=== PATIENT | female | born 1930 | race Caucasian/White ===

== ENCOUNTER 2017-05-11 15:46 | Outpatient (CLI) | payer MEDICARE, MEDICAID ==
[~2017-05-11] VITALS: Ht 152.4 cm; Wt 55.6 kg
--- NOTE | ~2017-05-11 | HEMODYNAMI ---
PATIENT:SOWMYA PARSON APRIL MEDICAL RECORD: [id number] : 32 [facility]# [id number] ADMISSION DATE: 05/11/17 Generatedon:05/12/20177:56 Patient name: SOWMYA PARSON Patient #: [id number] SSN : [id number] : 1930 Date of study: 05/12/2017 Page: Of Hemodynamic Procedure Report Patient Data Patient Demographics Procedure consent was obtained First Name: SOWMYA Gender: Female Last Name: BLANK : 1930 Middle Initial: APRIL Age: 87 year(s) Patient #: [id number] Race: Unknown SSN: [id number] Additional ID: [id number] Contact details [address]: [address] [place] [address] State: [place] City: [place] Zip code: [address] Past Medical History Allergies Allergen Reaction Date Comments Reported Other allergy 05/12/2017 Amlodipine, lisinopril, losartan, PCN Admission Admission Data Admission Date: 05/11/2017 Admission Time: 16:15 Arrival Date: 05/12/2017 Arrival Time: 0:00 Admit Source: Other Insurance Payor: Medicaid, Room #: D.2125 Medicare Height (in.): 60 BSA: 1.52 (m2) Height (cm.): 152.4 BMI: 23.93 (kg/m2) Weight (lbs.): 122.56 Weight (kg.): 55.59 Lab Results Lab Result Date: 05/12/2017 Lab Result Time: 0:00 Biochemistry Name Units Result Min Max BUN mg/dl 15 --(--*-)-- 7 18 Creatinine mg/dl 1.1 --(--*-)-- 0.6 1.3 CBC Name Units Result Min Max Hemoglobin g/dl 13 -*(----)-- 13.5 17.5 Procedure Procedure Types Cath Procedure Diagnostic Procedure LHC LHC w/Coronaries PCI Procedure Coronary Stent Initial Miscellaneous Procedures Moderate Sedation up to 15 minutes Procedure Description Procedure Date Procedure Date: 05/12/2017 Procedure Start Time: 7:36 Procedure End Time: 7:56 Procedure Staff Name Function Estuardo Plaza MD Performing Physician Sarah Gonzalez RT Scrub Amita Harris RN Nurse Mirella Henry RT Monitor Procedure Data Cath Procedure Fluoroscopy Diagnostic fluoroscopy Total fluoroscopy Time: 4.1 time: 4.1 min min Diagnostic fluoroscopy Total fluoroscopy dose: 453 dose: 453 mGy mGy Contrast Material Contrast Material Type Amount (ml) Isovue 300 83 Entry Location Entry Primary Successful Side Size Upsize Upsize Entry Closure Succes sful Closure Location (Fr) 1 (Fr) 2 (Fr) Remarks Device Remarks Femoral Right 5 Fr 6 Fr Exoseal artery Short Estimated blood loss: 10 ml Diagnostic catheters Device Type Used For End Catheter Placement Cordis 5Fr 3DRC Catheter Procedure (MP) Cordis 5Fr JL 4.0 Procedure Catheter (MP) Cordis 5Fr Pigtail Procedure Catheter (MP) Procedure Complications No complications Procedure Medications Medication Administration Route Dosage Oxygen NC 2 l/min Lidocaine 2% added to field 20 Heparin Flush Bag added to field 2 bags (1000units/500ml NS) 0.9% NaCl I.V. 100 ml/hr Versed I.V. 1 mg Fentanyl I.V. 50 mcg Heparin Bolus I.V. 4000 units Versed I.V. 0.5 mg Fentanyl I.V. 25 mcg Plavix P.O. 75 mg Hemodynamics Rest BSA: 1.52 (m2) HGB: 13 (g/dl) O2 Consumption: Estimated: 133.6 (ml/min) O2 Consu mption indexed: Estimated:87.89 (ml/min/m) Heart Rate: 68 (bpm) Snapshots Pre Cath Intra NCS Post Cath Vital Signs Time Heart Resp SPO2 NIBP (mmHg) Rhythm Pain Sedation Rate (ipm) (%) Status Level (bpm) 7:18:56 66 15 97 175/79(115) NSR 0 (11) 10(A) , No pain 7:23:24 65 15 96 183/73(161) NSR 0 (11) 10(A) , No pain 7:27:52 67 18 98 174/75(131) NSR 0 (11) 10(A) , No pain 7:32:21 65 16 95 159/66(118) NSR 0 (11) 10(A) , No pain 7:36:47 65 16 94 150/61(116) NSR 0 (11) 10(A) , No pain 7:41:07 70 14 93 133/54(108) NSR 0 (11) 9(A) , No pain 7:45:25 70 14 93 136/54(87) NSR 0 (11) 9(A) , No pain 7:49:47 70 15 94 122/46(79) NSR 0 (11) 9(A) , No pain 7:53:59 70 15 94 135/56(75) NSR 0 (11) 10(A) , No pain Medications Time Medication Route Dose Verified Delivered Reason Notes Effectiveness by by 7:28:29 Oxygen NC 2 Estuardo Buffie used for l/min Bola Harris RN procedure 7:28:36 Lidocaine 2% added 20ml Estuardo Estuardo for local to vial Bola Plaza MD anesthetic field 7:28:43 Heparin Flush added 2 Estuardo Estuardo used for Bag to bags Bola Plaza MD procedure (1000units/500ml field NS) 7:28:52 0.9% NaCl I.V. 100 Estuardo Levi Per physician ml/hr Bola Harris RN 7:36:50 Versed I.V. 1 mg Estuardo Levi for sedation Bola Harris RN 7:36:55 Fentanyl I.V. 50 Estuardo Brantleyie for sedation mcg Bola Harris RN 7:44:51 Heparin Bolus I.V. 4000 Estuardo Levi for verifie d units Bola Harris RN anticoagulation with dr plaza 7:47:27 Versed I.V. 0.5 Estuardo Brantleyie for sedation mg Bola Harris RN 7:47:31 Fentanyl I.V. 25 Estuardo Levi for sedation mcg Bola Harris RN 7:55:29 Plavix P.O. 75 mg Estuardo Levi for Bola Harris RN antiplatelet therapy Procedure Log Time Note 6:54:54 Patient Height : 152.4 cm 6:55:01 Patient Weight : 55.59 kg 6:55:10 Arrival Date: 05/12/2017 12:00:00 AM 6:55:13 Admit Source: Other 6:55:24 Insurance Payor : Medicare, Medicaid 7:16:13 Lab Result : Hemoglobin 13 g/dl 7:16:13 Lab Result : Creatinine 1.1 mg/dl 7:16:13 Lab Result : BUN 15 mg/dl 7:17:11 ACC Patient presents with Stable Angina CCS Anginal Class 2--Slight limitation of ordinary activity. 7:17:14 Diagnostic Cath status Elective 7:17:16 Amita Harris RN sent for patient. Start room use. 7:17:19 Time tracking: Regular hours 7:17:25 Plan of Care:Hemodynamics will remain stable., Cardiac rhythm will remain stable., Comfort level will be maintained., Respiratory function will remain adequate., Patient/ family verbilizes understanding of procedure., Procedure tolerated without complication., Recovers from procedure without complications.. 7:17:31 Patient received from Med II to CCL 2 Alert and oriented. Tansferred to table in Supine position. 7:17:34 Warm blankets applied, and apolol hugger turned on for patient comfort. 7:17:35 Correct patient and procedure confirmed by team. 7:17:37 Signed procedure consent form obtained from patient. 7:17:38 ECG and BP/O2 sat monitors applied to patient. 7:17:40 Vital chart was started 7:17:44 Baseline sample Acquired. 7:17:49 Rhythm: sinus rhythm 7:17:51 Full Disclosure recording started 7:18:36 H&P Date Dictated: 05/11/2017 Within 30 days and on chart., H&P Addendum completed by physician on day of procedure. (MUST COMPLETE FOR ALL OUTPATIENTS). 7:18:38 Pre-procedure instructions explained to patient. 7:18:42 Family in patients room. 7:18:45 Patient NPO since Midnight. 7:19:29 Is the patient allergic to Iodine/contrast media? No. 7:19:32 Is patient on blood thinner?Yes 7:19:35 ACC The patient was administered the following blood thiners within the last 24 hours: ACCPlavix 7:19:39 Patient diabetic? No. 7:19:46 Snore? Yes 7:19:47 Sleep apnea? No 7:20:01 Airway obstruction? Yes chronic bronchitis 7:20:09 Dentures? Yes tight 7:20:15 Patient pain scale 0/10 ?. 7:20:21 IV patent on arrival in left forearm with 0.9% NaCl at [facility]. 7:20:35 Lab results completed and on chart. 7:21:21 Patient allergic to Other allergyAmlodipine, lisinopril, losartan, PCN 7:21:27 Right groin area was prepped with chlora-prep and draped in sterile fashion 7:: Alarms reviewed by R. N. 7::29 Sharps counted by scrub and verified by R.N. 7:21:30 Physician paged 7:28:12 Zero performed for pressure channel P1 7:28:19 Zero performed for pressure channel P1 7:28:26 Zero performed for pressure channel P1 7:28:29 Oxygen 2 l/min NC was administered by Amita Harris RN; used for procedure; 7:28:36 Lidocaine 2% 20ml vial added to field was administered by Estuardo Plaza MD; for local anesthetic; 7:28:43 Heparin Flush Bag (1000units/500ml NS) 2 bags added to field was administered by Estuardo Plaza MD; used for procedure; 7:28:52 0.9% NaCl 100 ml/hr I.V. was administered by Amita Harris RN; Per physician; 7:35:15 Physician arrived 7:35:16 --------ALL STOP TIME OUT------ 7:35:16 Final Timeout: patient, procedure, and site verified with staff and physician. All members of the team are in agreement. 7:35:20 Right groin site verified by team. 7:35:24 Physical assessment completed. ASA score P 2 - A patient with mild systemic disease as per Estuardo Plaza MD. 7:35:28 Sedation plan: IV Moderate Sedation Versed, Fentanyl 7:36:28 Use device set Femoral Dx 7:36:33 Procedure started. 7:36:43 Local anesthetic to right femoral artery with Lidocaine 2% by Estuardo Plaza MD.INITIAL ACCESS ONLY 7:36:50 Versed 1 mg I.V. was administered by Amita Harris RN; for sedation; 7:36:53 A 5 Fr sheath was inserted into the Right Femoral artery 7:36:55 Fentanyl 50 mcg I.V. was administered by Amita Harris RN; for sedation; 7:36:55 Acist Syringe opened to sterile field. 7:36:56 Bag Decanter opened to sterile field. 7:36:57 Medline Cath Pack opened to sterile field. 7:36:59 Terumo 5Fr [place] Sheath opened to sterile field. 7:36:59 St Aj 260cm J .035 wire opened to sterile field. 7:37:01 Acist Hand Control opened to sterile field. 7:37:02 Acist Manifold opened to sterile field. 7:37:02 Diagnostic Infinity 5Fr Multipack catheter opened to sterile field. 7:37:03 Tegaderm 4 x 4 opened to sterile field. 7:39:51 A Cordis 5Fr 3DRC Catheter (MP) was advanced over the wire and used for Procedure. 7:39:54 RCA angiography performed. 7:40:55 Catheter removed. 7:41:38 A Cordis 5Fr JL 4.0 Catheter (MP) was advanced over the wire and used for Procedure. 7:41:41 LCA angiography performed. 7:42:20 Catheter removed. 7:42:29 A Cordis 5Fr Pigtail Catheter (MP) was advanced over the wire and used for Procedure. 7:42:33 LV gram done using POLO 7:43:28 EF : 40 % 7:43:30 Catheter removed. 7:44:48 Cordis 6FR XBLAD 3.5 SH guide catheter opened to sterile field. 7:44:49 Nixon Whisper J 300cm 0.014 guide wire opened to sterile field. 7:44:50 Merit BasixCompak Inflation Kit opened to sterile field. 7:44:50 Terumo 6Fr [place] Sheath opened to sterile field. 7:44:51 Heparin Bolus 4000 units I.V. was administered by Amita Harris RN; for anticoagulation; verified with dr plaza 7:45:05 Sheath upsized to a 6 Fr Short. 7:45:19 ACC PCI Site: mLAD has 99% stenosis. 7:45:32 6 Fr XBLAD 3.5 SH guide catheter was inserted over the wire 7:46:15 Whisper wire advanced. 7:47:27 Versed 0.5 mg I.V. was administered by Amita Harris RN; for sedation; 7:47:28 Inflation number: 1 A [place] Mayday PAC Clearwater 2.5 X 12 balloon was prepped and advanced across the Mid LAD, then inflated to 13 KWAKU for 0:10 (min:sec). 7:47:31 Fentanyl 25 mcg I.V. was administered by Amita Harris RN; for sedation; 7:47:35 Balloon removed over the wire. 7:48:51 Inflation Number: 2 A Biofreedom 2.5 x 14 stent (No Cost Implant) was prepped and advanced across the Mid LAD. The stent was deployed at 13 KWAKU for 0:10 (min:sec). 7:53:25 Cordis 6Fr Exoseal opened to sterile field. 7:53:36 Wire removed. 7:53:37 Guide catheter removed. 7:53:49 Sheath removed intact; hemostasis achieved with Exoseal to the Right Femoral artery. 7:53:54 Procedure ended.(Physican Out) 7:54:10 Fluoroscopy time 04.10 minutes. 7:54:18 Fluoroscopy dose: 453 mGy 7:54:18 Flurop Dose total: 453 7:54:23 Contrast amount:Isovue 300 83ml. 7:54:26 Sharps counted by scrub and verified by R.N. 7:54:32 Insertion/operative site no bleeding no hematoma. 7:54:37 Post-op/insertion site Right Femoral artery dressed using a 4 x 4 and Tegaderm. 7:54:40 Post right femoral artery:stable 7:54:43 Post Procedure Pulses reassessed and unchanged 7:54:47 Post-procedure physical assessment completed. ASA score P 2 - A patient with mild systemic disease as per Estuardo Plaza MD. 7:54:50 Post procedure rhythm: unchanged. 7:54:54 Estimated blood loss: 10 ml 7:54:56 Post procedure instruction explained to patient.Patient verbalizes understanding. 7:55:04 Procedure type changed to Cath procedure, Diagnostic procedure, LHC, LHC w/Coronaries, PCI procedure, Coronary Stent Initial, Miscellaneous Procedures, Moderate Sedation up to 15 minutes 7:55:12 Procedure and supply charges have been captured, reviewed, submitted and are correct. 7:55:29 Plavix 75 mg P.O. was administered by Amita Harris RN; for antiplatelet therapy; 7:55:42 Procedure Complication : No complications 7:55:45 Vital chart was stopped 7:55:46 See physician's report for complete and final results. 7:55:53 Report given to [facility]. 7:55:58 Patient transfered to [facility] with Bed. 7:56:00 Procedure ended. 7:56:00 Full Disclosure recording stopped 7:56:03 End room use (Document Last) 7:56:10 ACC-PCI Only Patient was given prescriptions, or instructed by Estuardo Plaza MD to start/continue the following medications upon discharge: Plavix Intervention Summary Intervention Notes Time ActionType Lesion and Equipment Action# Pressure Duration Attributes Used 7:47:28 Inflate Mid LAD [place] Sci 1 13 00:10 balloon [place] 2.5 X 12 balloon 7:48:51 Place stent Mid LAD Biofreedom 2 13 00:10 2.5 x 14 stent (No Cost Implant) Device Usage Item Name Manufacture Quantity Catalog Number Hospital Part Current Mini mal Lot# / Charge Number Stock Stock Serial# Code Acist Acist 1 45570 199272 811368 935358 20 Syringe Medical Systems Inc Bag Microtek 1 2002S 305825 78009 921134 5 CoolSystems Inc. Medline Cardinal 1 [id number] 170626 39702 542803 5 Cath Pack Health Terumo 5Fr Terumo 1 [id number] 340948 918802 371698 [address] Aj St Aj 1 604959 499924 787815 858067 30 260cm J .035 wire Acist Hand Acist 1 88189 160900 588932 796825 5 Control Medical Systems Inc Acist Acist 1 86519 442194 881909 320350 5 A [place] Pleasure Medical Systems Inc Diagnostic Cardinal 1 FY1087 532341 19378 129757 30 Infinity Health 5Fr Multipack catheter Tegaderm 4 3M 1 1626W 713053 992954 636303 5 x 4 Cordis 5Fr Cardinal 1 996462 5 3DRC Health Catheter (MP) Cordis 5Fr Cardinal 1 628344 5 JL 4.0 Health Catheter (MP) Cordis 5Fr Cardinal 1 069691 5 Pigtail Health Catheter (MP) Cordis 6FR Cardinal 1 [id number] 044913 443534 878236 3 XBLAD 3.5 Health SH guide catheter Nixon Nixon 1 [id number] 373224 183018 021372 5 Whisper J Vascular 300cm 0.014 guide wire Merit Merit 1 [id number] 778548 655473 593179 15 BasixCompak Medical Inflation Kit Terumo 6Fr Terumo 1 RRB989 394761 437911 139854 40 [place] Sheath [place] Sci [place] 1 [id number] 646835 133647 181738 1 Min[employer]a [employer] 2.5 X 12 balloon Biofreedom Biosensors 1 [id number] 437852 787039 5 [id number] 2.5 x 14 [place] SA stent (No Cost Implant) Cordis 6Fr Cardinal 1 EX600 177771 310393 175210 10 [facility] Signature Audit [place] Stage Time Signature Unsigned Intra-Procedure 05/12/2017 Mirella Henry 7:56:26 AM RT(R) Signatures Monitor : Mirella Henry Signature : RT Date : Time : [place] [id number] [place] [address]
[2017-05-11 14:43] LABS: BASOPHILS 0.2 % (0-2); EOSINOPHILS 2.1 % (0-7); HEMATOCRIT 40.3 % (36.0-48.0); IMMATURE GRANULOCYTES 0.1 % (0-5); LYMPHOCYTES 29.1 % (15-50); MCH 29.3 pg (26.0-34.0); MCHC 32.3 g/dL (31.0-37.0); MEAN PLATELET VOLUME 11.5 fL (7.4-10.4); MONOCYTES 12.6 % (2-11); NEUTROPHILS 55.9 % (40-80); RBC 4.43 10x6/uL (4.00-5.40); RDW 13.2 % (11.5-14.5); WBC 8.8 10x3/uL (4.8-10.8)
[2017-05-11 14:56] LABS: PLATELET COUNT 229 10x3/uL (130-400)
[2017-05-11 15:01] LABS: ALKALINE PHOSPHATASE 53 U/L (46-116); ALT (SGPT) 21 U/L (10-68); BILIRUBIN - TOTAL 0.37 mg/dL (0.2-1.3); CALC OSMOLALITY 277 mosm/kg (275-300); CALCIUM 9.3 mg/dL (8.5-10.1); CHLORIDE - SERUM 101 mmol/L (98-107); CREATININE - SERUM 1.1 mg/dL (0.6-1.3); GLUCOSE 145 mg/dL (74-106); POTASSIUM - SERUM 3.9 mmol/L (3.5-5.1); PROTEIN - SERUM 6.7 g/dL (6.4-8.2); SODIUM 137 mmol/L (136-145); UREA NITROGEN 15 mg/dL (7-18); eGFR NON AFRICAN AMERICAN 50 mL/min (90-120)
[2017-05-11 15:02] LABS: ALBUMIN 0.6 g/dL (3.4-5.0)
[~2017-05-11 15:46] MED LIST: ANTIVERT25 MG PO; ATIVAN0.5 MG PO; BAYER CHEWABLE81 MG PO; BIOTIN5 MG; BUMEX 1 MG TAB1 MG PO; COMBIVENT RESPIM4 GM INH; COREG 3.1253.125 MG PO; COZAAR50 MG PO; CYCLOBENZAPRINE10 MG PO; DOXEPIN HCL10 MG PO; EFFIENT10 MG PO; FISH OIL 1,0001 CA1 PO; FISH OIL 1,2001 CA1; FOLATE0.4 MG PO; HYDROCODON-ACE1 EAC7 PO; K-DUR20 MEQ PO; KLOR-CON20 MEQ/PKT PO; LEVAQUIN500 MG PO; LEVAQUIN750 MG PO; LIORESAL 10 MG10 MG PO; MEDROL DOSE PACK4 MG PO; MELATONIN 3 MG1 TAB PO; MIRALAX17 GM PO; MULTIPLE VITAMI1 TA1 PO; NYSTATIN OINTME15 GM TOPICAL; OMEPRAZOLE20 M1 PO; PEPCID20 MG PO; PLAVIX75 MG PO; PRILOSEC20 MG PO; SINEQUAN50 MG PO; SINGULAIR10 MG PO; STERAPRED 5MG 125 MG PO; SYNTHROID75 MCG PO; TOPROL XL100 MG PO; TYLENOL 325 MG325 MG PO; ULTRAM50 MG PO; VITAMIN B COMPL1 TAB PO; VITAMIN D31000 UNIT PO; XANAX0.5 MG PO; ZANTAC150 MG PO; ZOCOR40 MG PO; ZOLOFT100 MG PO; ZOLOFT20 MG/ML PO
[2017-05-11 15:48] LABS: TROPONIN-I < 0.017 ng/mL (0.000-0.060)
[2017-05-11 15:50] LABS: CREATINE KINASE 33 UL (21-215)
--- NOTE | 2017-05-11 17:48 | NUR ---
PT ARRIVED VIA STRETCHER FROM ER. PT IS A&O RESTING QUIETLY IN BED WITH AT BEDSIDE. PT HAS A L.WRIST PIV THAT IS SL, DRSG CDI AND SWAB CAPS IN USE. SHIFT ASSESSMENT COMPLETED AND ADMISSION WORK-UP BEING DONE. VSS. PT IS HUNGRY AND DINNER TRAY HAS BEEN ORDERED. PT IS WEARING NC @2L WITH RR NONLABORED. PROVIDED PT WITH ORDERED ONE TIME DOSE OF PLAVIX 300MG. PT DENIES ANY FURTHER NEEDS AT THIS TIME. CL IN REACH, BED IN LOWEST, SIDE RAILS X2. WILL CTM.
[2017-05-11] MEDS ORDERED: SYNTHROID88 MCG PO (18:23)
[2017-05-11] MEDS ORDERED: KLOR-CON M2020 MEQ PO (18:25)
[2017-05-11] MEDS ORDERED: ALBUTEROL2.5 MG/3 M INH (18:28)
[2017-05-11] MEDS ORDERED: CALTRATE 600 M600 M1 PO (18:28)
[2017-05-11] MEDS ORDERED: CYCLOBENZAPRINE5 MG PO (18:29)
[2017-05-11] MEDS ORDERED: MECLIZINE HCL25 MG PO (18:29)
[2017-05-11] MEDS ORDERED: OMEGA 3 FISH OI1 CAP PO (18:30)
[2017-05-11] MEDS ORDERED: BUMEX 1 MG TAB1 MG PO (18:30)
[2017-05-11] MEDS ORDERED: HYDROCODONE-APA1 TAB PO (18:31)
[2017-05-11 19:00] VITALS: BP 170/64
--- NOTE | 2017-05-11 19:35 | NUR ---
RECEIVED REPORT, FAMILY AT BEDSIDE, BED IS LOW, SRX2, CALL LIGHT IN REACH, WILL CONTINUE PLAN OF CARE
[2017-05-12] VITALS: BP 138/62
--- NOTE | 2017-05-12 01:10 | NUR ---
YARD ATTENDANT AT BEDSIDE TO OBTAIN VITALS, CALL LIGHT IN REACH. WILL CONTINUE WITH PLAN OF CARE.
[2017-05-12 01:12] VITALS: Ht 152.4 cm; Wt 55.6 kg
--- NOTE | 2017-05-12 03:30 | NUR ---
ASSESSMENT COMPLETE, PT HAS BEEN NPO SINCE MIDNIGHT FOR CATH, FAMILY AT BEDSIDE, BED IS LOW, SRX2, CALL LIGHT IN REACH, WILL CONTINUE PLAN OF CARE
[2017-05-12 04:00] VITALS: BP 139/74
--- NOTE | 2017-05-12 07:15 | NUR ---
TO STOREROOM KEEPER PER BED
--- NOTE | 2017-05-12 08:00 | NUR ---
RECIVED FROM [facility] MAGISTRATE PER BED, DAUGHTER AT SIDE. RT GROIN DRSG C/D, PULSE PALP. DENIES NEEDS.
--- NOTE | 2017-05-12 08:49 | HP ---
PATIENT: SOWMYA MATOS APRIL MEDICAL RECORD: [id number] ACCOUNT: [id number] LOCATION:[address] : [birth year] ADMISSION DATE: 05/11/17 HISTORY AND PHYSICAL EXAMINATION DIAGNOSES: 1. Angina. 2. Coronary artery disease. 3. Previous percutaneous transluminal coronary angioplasty stent. 4. Hypertension. 5. Hyperlipidemia. HISTORY OF PRESENT ILLNESS: Mrs. Matos presents with anginal symptomatology times 2 days, just like that of her previous angina. Her last cardiac stent was over a year ago. PHYSICAL EXAMINATION: GENERAL APPEARANCE: Well-nourished, well-developed, appears stated age. Level of distress, comfortable. PSYCHIATRIC: Mental status, alert, normal affect. Orientation, oriented to time, place and person. EYES: Lids and conjunctiva, noninjected. No discharge, no pallor. ENT: Lips, teeth, gums, normal dentition. Oropharynx, no cyanosis, no pallor. NECK: Carotid arteries, bilateral normal upstroke, no bruits, no thrills. JUGULAR VEINS: No jugular venous pressure or distention. CERVICAL LYMPH NODES: Nontender, nonenlarged. THYROID: Not enlarged. Nontender. No nodules. LUNGS: Respiratory effort, unlabored. CHEST: Normal curvature. No thoracic deformity. No chest wall tenderness. Percussion, resonant. Auscultation, clear. No wheezes, no rales, no rhonchi. CARDIOVASCULAR: Precordial exam, nondisplaced. No heaves or pericardial thrills. Rate and rhythm, regular. Heart sounds, normal S1, normal S2. No S3, no gallop, no rub. Systolic murmur, not heard. Diastolic murmur, not heard. EXTREMITIES: No cyanosis, no edema. Peripheral pulses, full and equal in all extremities, except as noted. No bruits appreciated. ABDOMEN: Soft, nondistended. Normal aorta. No bruit. Nontender. No masses. Liver, nontender, no hepatomegaly. Spleen, nontender, no splenomegaly. MUSCULOSKELETAL: No joint tenderness. No joint swelling. No erythema. NEUROLOGICAL: Normal gait, normal strength, normal tone. SKIN: Warm and dry. REVIEW OF SYSTEMS: The patient reports easy bruising but reports no swollen glands. The patient reports no fever, no night sweats, no significant weight gain, no significant weight loss. No significant exercise tolerance. The patient reports no dry eyes, no irritation, no vision change. Patient reports no difficulty hearing and no ear pain. Patient reports no frequent nose bleeds or nose and sinus problems. Patient reports on arm pain on exertion. No shortness of breath while lying down. No history of heart murmur. Patient reports no cough, no wheezing or coughing up blood. Patient reports no abdominal pain, no vomiting. Normal appetite. No diarrhea and not vomiting blood. No nausea and no constipation. Patient reports no incontinence. No difficulty urinating. No hematuria. No increased frequency. Patient reports no muscle aches. No weakness, no arthralgias, no back pain. No swelling of the extremities. Patient reports no abnormal mole, no jaundice, no rashes. Reports no loss of consciousness. No weakness and no numbness. No seizures, dizziness, HISTORY AND PHYSICAL [id number] BLANK,SOWMYA UZMA or headaches. The patient reports no depression, no sleep disturbance, feeling safe in a relationship and no alcohol abuse. Patient reports on fatigue. Reports no runny nose or sinus pressure. No itching, no hives, and no frequent sneezing. A 12-lead ECG is sinus rhythm with nonspecific ST-T abnormalities. OVERALL IMPRESSION: Unstable angina. We will proceed with coronary angiography. Further care depends upon findings of the angiography. TRANSINT:[id number] Voice Confirmation ID: [id number] DOCUMENT ID: [id number] ADDIS MUSA MD at 0849 CC: [id number] DICTATION DATE: 05/11/17 1548 REFRIGERATION ENGINEERING TEACHER: 05/11/17 1557 [facility] [address]
--- NOTE | 2017-05-12 09:28 | NUR ---
BACK FROM PROPOSAL ANALYST. VS STABLE. WILL CONT. PLAN OF CARE.
[2017-05-12] MEDS ORDERED: PLAVIX75 MG PO (09:58)
--- NOTE | 2017-05-12 10:18 | NUR ---
ASSESSMENT DONE. DENIES NEEDS.
--- NOTE | 2017-05-12 11:58 | NUR ---
RT GROIN REMAINS C/D, PULSE PALP.
--- NOTE | 2017-05-12 12:06 | NUR ---
DC AND RX GIVEN TO PT AND DAUGHTER
[2017-05-12 12:13] VITALS: BP 162/62
--- NOTE | 2017-05-12 12:55 | NUR ---
DC HOME PER PERSONAL CAR
--- NOTE | 2017-05-16 10:11 | OP ---
PATIENT NAME: SOWMYA PARSON UZMA MEDICAL RECORD: [id number] :32 LOCATION:D.M2 D.2125 ADMISSION DATE:05/11/17 SURGEON: ADDIS MUSA MD DATE OF OPERATION: 05/12/2017 PROCEDURES: 1. PTCA stent LAD. 2. Selective coronary angiography. 3. Left heart catheterization. 4. Left ventriculogram. INDICATION: Angina and coronary artery disease. PROCEDURE IN DETAIL: After informed consent was obtained and after a detailed explanation of the risks, benefits as well as alternative therapies, the patient elected to proceed with angiogram and angioplasty. The right femoral area was prepped and draped in normal sterile fashion. The right femoral artery was cannulated via modified Seldinger technique with placement of 6-Armenian sheath. All catheters exchanged through this sheath. FINDINGS: Left ventriculogram was performed in the standard 30-degree POLO view, reveals mild global hypokinesis, ejection fraction in the 40% range. SELECTIVE CORONARY ANGIOGRAPHY: 1. Left main showed no significant angiographic disease. 2. Left anterior descending has a 95% in-stent restenosis in the mid vessel. 3. Left circumflex has moderate irregularities, but no flow-limiting stenosis. 4. Right coronary has moderate irregularities, but no flow-limiting stenosis. PTCA STENT OF THE LAD: The lesion was a 12-mm lesion and a 2.5 vessel with WILFRED 3 flow. This was addressed with a 2.5 x 14 mm BioFreedom stent. Result was 0% residual stenosis, WILFRED-3 flow. IMPRESSION: Successful percutaneous transluminal coronary angioplasty stent of the left anterior descending going from 95% initial stenosis to 0% residual. TRANSINT:[id number] Voice Confirmation ID: [id number] DOCUMENT ID: [id number] ADDIS MUSA MD at 1011 CC: [id number] DICTATION DATE: 05/12/17 0801 FINANCIAL REPORT SERVICE SALES AGENT: 05/12/17 1302 DIS IN 05/12/17 [place] [id number] [place] [id number]
--- NOTE | 2017-05-16 10:11 | DS ---
PATIENT:SOWMYA MATOS APRIL :32 MEDICAL RECORD: [id number] DISCHARGE SUMMARY ADMISSION DATE: 05/11/17 DISCHARGE DATE: 05/12/17 DATE OF DISCHARGE: 05/12/2017 DISCHARGE DIAGNOSES: 1. Angina. 2. Percutaneous transluminal coronary angioplasty stent left anterior descending this admission. 3. Hypertension. HOSPITAL COURSE: Mrs. Matos presents with unstable anginal symptomatology, found to have significant disease of the LAD, underwent successful PTCA stent of the LAD, and was discharged home with the addition of Plavix, aspirin to her medical regimen. She will follow up with [facility] in 1 month. TRANSINT:[id number] Voice Confirmation ID: [id number] DOCUMENT ID: [id number] ADDIS MUSA MD at 1011 CC: [id number] DICTATION DATE: 05/12/17 0800 K9 HANDLER: 05/13/17 0542 DIS IN 05/12/17 [address] [place] [address]
== END 2017-05-12 12:56 | disposition home or self-care (01) ==
LOC: OBSVTIME → D.OPS 15:46 → OBSVTIME 16:15 → D.M2 16:15 → D.ER 16:15 → D.M2 16:15 → EDSTATUS 05-12 09:00 → D.OPS 05-12 12:56 → D.M2 05-12 12:56
PROVIDERS: Emergency Medicine
DX: I25.119 Atherosclerotic heart disease of native coronary artery with unspecified angina pectoris (principal); T82.855A Stenosis of coronary artery stent, initial encounter; Y83.9 Surgical procedure, unspecified as the cause of abnormal reaction of the patient, or of later complication, without mention of misadventure at the time of the procedure; I10 Essential (primary) hypertension; E78.5 Hyperlipidemia, unspecified; Z00.6 Encounter for examination for normal comparison and control in clinical research program
CPT/HCPCS: 93458; C9600

== ENCOUNTER 2017-06-28 13:13 | Inpatient (IN) | payer MEDICARE, MEDICAID ==
[~2017-06-28] VITALS: Ht 152.4 cm; Wt 54.1 kg
[~2017-06-28 13:13] MED LIST changes: +ALBUTEROL2.5 MG/3 M INH; +CALTRATE 600 M600 M1 PO; +CYCLOBENZAPRINE5 MG PO; +HYDROCODONE-APA1 TAB PO; +KLOR-CON M2020 MEQ PO; +MECLIZINE HCL25 MG PO; +OMEGA 3 FISH OI1 CAP PO; +SYNTHROID88 MCG PO
[2017-06-28 14:44] LABS: ANION GAP 13.9 mmol/L (8-16); BASOPHILS 0.2 % (0-2); BILIRUBIN - TOTAL 0.43 mg/dL (0.2-1.3); CALCIUM 11.7 mg/dL (8.5-10.1); CARBON DIOXIDE 30.9 mmol/L (21.0-32.0); CREATININE - SERUM 1.2 mg/dL (0.6-1.3); EOSINOPHILS 1.3 % (0-7); HEMATOCRIT 36.9 % (36.0-48.0); HEMOGLOBIN 12.1 g/dL (12-16); IMMATURE GRANULOCYTES 0.4 % (0-5); LYMPHOCYTES 16.1 % (15-50); MCHC 32.8 g/dL (31.0-37.0); MCV 88.5 fL (80.0-100.0); MEAN PLATELET VOLUME 11.5 fL (7.4-10.4); MONOCYTES 15.6 % (2-11); NEUTROPHILS 66.4 % (40-80); PLATELET COUNT 268 10x3/uL (130-400); POTASSIUM - SERUM 3.8 mmol/L (3.5-5.1); PROTEIN - SERUM 7.3 g/dL (6.4-8.2); RBC 4.17 10x6/uL (4.00-5.40); WBC 12.6 10x3/uL (4.8-10.8)
[2017-06-28 15:30] LABS: APPEARANCE CLEAR (CLEAR); BILIRUBIN NEGATIVE (NEGATIVE); COLOR YELLOW (YELLOW); GLUCOSE NEGATIVE (NEGATIVE); KETONE NEGATIVE (NEGATIVE); LEUKOCYTE ESTERASE NEGATIVE (NEGATIVE); NITRITE NEGATIVE (NEGATIVE); PROTEIN NEGATIVE (NEGATIVE); UROBILINOGEN NORMAL (NORMAL)
--- NOTE | 2017-06-28 17:53 | NUR ---
RECIVED FROM [place] TO ROOM 2118,
--- NOTE | 2017-06-28 19:02 | NUR ---
WITHOUT DISTRESS NOTED AT THIS TIME.
[2017-06-28 19:56] VITALS: BP 154/71
--- NOTE | 2017-06-28 20:27 | NUR ---
ORDER FOR CARDIZEM DRIP PLACED BY MED SURG NURSE AT 1900 AND DRIP UP AND INFUSING AT 1920 CARDIZEM AT 10ML/HR. CURRENT TELEMETRY SHOWING ST 130'S. PT LYING QUIETLY IN BED. DOES NOT ANSWER ANY NURSE QUESTIONS. NO DISTRESS NOTED. O2 @2L/NC IN PLACE. BOX BED ALARM PLACED FOR SAFETY. SEE ASSESSMENT. CPOC.
[2017-06-29] VITALS (7 sets, daily range): BP systolic 124–173; BP diastolic 50–71; Ht 152.4 cm; Wt 54.1 kg
--- NOTE | 2017-06-29 00:42 | NUR ---
PT NOW SR 72. LIGIA @ 10ML/HR.
--- NOTE | 2017-06-29 04:09 | NUR ---
PT WAS INCONTINENT OF BM. CARE PROVIDED. PT NOTICEABLY MORE ALERT AND TRYING VERY HARD TO SPEAK TO NURSE/ANSWER QUESTIONS. EXPRESSIVE APHASIA INDICATED. PT APPEARS VERY DISTRESSED WITH HER INABILITY TO SAY THE WORDS SHE IS TRYING TO SAY. IVF INFUSING. CARDIZEM AT 10ML/HR STILL INFUSING. PT DOES HAVE A COUGH WITH THICK/WHITE SPUTUM AND SHE IS ABLE TO REACH UP WITH HER RIGHT HAND AND A KLEENEX AND HER MOUTH, ALTHOUGH HER FINE MOTOR SKILLS ARE POOR. ENCOURGAED PT REST AND MD WILL SEE HER IN THE AM.
[2017-06-29 06:29] LABS: BASOPHILS 0.2 % (0-2); EOSINOPHILS 1.8 % (0-7); HEMATOCRIT 36.6 % (36.0-48.0); HEMOGLOBIN 11.9 g/dL (12-16); IMMATURE GRANULOCYTES 0.3 % (0-5); MCH 28.7 pg (26.0-34.0); MCHC 32.5 g/dL (31.0-37.0); MCV 88.4 fL (80.0-100.0); MONOCYTES 12.7 % (2-11); PLATELET COUNT 278 10x3/uL (130-400); RBC 4.14 10x6/uL (4.00-5.40); RDW 13.1 % (11.5-14.5); WBC 11.5 10x3/uL (4.8-10.8)
--- NOTE | 2017-06-29 10:23 | NUR ---
ASSISTED UP TO CHAIR WITH PT ASSIST. MRI FORM COMPLETED AND SIGNED BY . ST AND OT AT [facility]. TELEMETRY SR. WILL CONT. PLAN OF CARE.
--- NOTE | 2017-06-29 17:28 | NUR ---
OT NOTE: PT COMPLETED BUE AAROM FOR INCREASED FUNCTIONAL USE DURING ADLS. PT COMPLETED GROOMING AND HYGIENE TASKS WITH CGA. PT COMPLETED BED MOB AND POSITIONING WITH BROOK Gramajo THANK YOU, CHARLES BERGERON/Carmen
--- NOTE | 2017-06-29 17:36 | NUR ---
LEAVING FOR MRI BY W/C.
--- NOTE | 2017-06-29 19:00 | NUR ---
RECEIVED REPORT AND ASSUMED PT CARE FROM DAY SHIFT NURSE @ THIS TIME.
--- NOTE | 2017-06-30 02:30 | NUR ---
PT PULLS OUT IV TO LEFT FOREARM. MULTIPLE ATTEMPTS MADE BY NURSES X3 WITHOUT SUCCESS. WILL AWAIT FOR VASCULAR NURSE TO ASSESS PT ON THE DAY SHIFT. PT IS REFUSING ANY FURTHER ATTEMPTS AT THIS TIME.
--- NOTE | 2017-06-30 05:43 | NUR ---
PT RESTING WELL, HAS EXPERIENCED SEVERAL INCONT EPISODES THROUGH OUT THE SHIFT. REMAINS PLEASANTLY CONFUSED. SPEECH REMAINS CLEAR. PT ABLE TO FOLLOW COMMANDS. WILL CONT TO MONITOR.
[2017-06-30 06:08] LABS: BASOPHILS 0.2 % (0-2); EOSINOPHILS 2.2 % (0-7); HEMATOCRIT 37.4 % (36.0-48.0); HEMOGLOBIN 12.1 g/dL (12-16); IMMATURE GRANULOCYTES 0.5 % (0-5); LYMPHOCYTES 18.9 % (15-50); MCH 28.6 pg (26.0-34.0); MCHC 32.4 g/dL (31.0-37.0); MCV 88.4 fL (80.0-100.0); MEAN PLATELET VOLUME 11.2 fL (7.4-10.4); MONOCYTES 13.7 % (2-11); NEUTROPHILS 64.5 % (40-80); PLATELET COUNT 296 10x3/uL (130-400); RBC 4.23 10x6/uL (4.00-5.40); RDW 13.2 % (11.5-14.5)
[2017-06-30 06:10] VITALS: BP 124/81
--- NOTE | 2017-06-30 07:21 | NUR ---
OT NOTE: PT COMPLETED BUE AAROM TO AND PROMOTE AROM FOR INCREASED I WITH ADLS. THANK YOU, CHARLES BERGERON/Carmen
--- NOTE | 2017-06-30 07:30 | NUR ---
RECEIVED PT IN BED EYES CLOSED RESP UNLABORED NAD NOTED
[2017-06-30 12:00] VITALS: BP 145/70
--- NOTE | 2017-06-30 17:21 | NUR ---
OT NOTE: PT COMPLETED GROOMING AND HYGIENE TASKS WITH MIN A. PT COMPLETED BUE POSITIONING FOR DECREASED PAIN. PT COMPLETED BUE AAROM EXERCISES TO FACILITATE AROM FOR INCREASED I WITH BED MOB AND ADLS. THANK YOU, CHARLES BERGERON/Carmen
--- NOTE | 2017-06-30 19:00 | NUR ---
RECEIVED REPORT AND ASSUMED PT CARE FROM DAY SHIFT NURSE @ THIS TIME.
[2017-06-30 19:57] VITALS: BP 156/58
--- NOTE | 2017-07-01 00:15 | NUR ---
PT RESTING WELL, ASSESSMENT UNCHANGED. ASSISTED WITH COMPLETE BED BATH AND LINENM CHANGE. PT NOTED TO BE INCONT OF URINE. NO NEEDS VOICED. WILL CONT TO MONITOR.
[2017-07-01 01:20] VITALS: BP 153/72
[2017-07-01 05:43] VITALS: BP 134/59
--- NOTE | 2017-07-01 07:30 | NUR ---
RESTING QUIETLY EYES CLOSED RESP UNLABORED NAD NOTED
[2017-07-01 08:48] VITALS: BP 135/93
[2017-07-01 08:58] VITALS: BP 149/57
[2017-07-01 12:04] VITALS: BP 189/105
--- NOTE | 2017-07-01 12:27 | CN ---
PATIENT NAME:SOWMYA PARSON MEDICAL RECORD: [id number] : [birth year] LOCATION:D.Minh D.2119 ADMIT DATE: 06/28/17 ACCOUNT: [id number] CONSULTING PHYSICIAN: OCTAVIO LOVETT MD REFERRING PHYSICIAN: GREYSON TAM MD DATE OF CONSULTATION: 06/30/2017 Psychiatric Evaluation and Consultation IDENTIFYING DATA: The patient is 87 years old and she is admitted to the hospital on a voluntary basis. CHIEF COMPLAINT: None. HISTORY OF PRESENT ILLNESS: The patient has a number of medical problems. She was recently treated for pneumonia at [facility] and released. She apparently has become quite confused, and that is why she was brought back here. The patient has a number of serious medical problems. When I went to see her, there is no one else in the room; no family members and so I cannot get collateral sources of information at this point, but interviewing the patient, or more accurately, trying to interview the patient, was not very productive. The patient is sitting up in the bed on her back with her hands folded across her chest, her head tilted upward, her eyes closed, and moving her mouth. I interrupted her, and she tells me that she is praying and for me to not bother her. I make a couple of attempts to apologize for having interrupted her and telling her I need to speak with her, but she just continues to pray. PAST PSYCHIATRIC HISTORY: Unknown. PAST MEDICAL HISTORY: Significant for coronary artery disease, hypothyroidism, neuropathy, congestive heart failure and atrial fibrillation. MENTAL STATUS EXAMINATION: Not possible; best I can do is give you the description that I gave above. ASSESSMENT: Delirium versus psychosis. PLAN: At this point, without having more information, there is not a lot I can offer. I would say that if she is cleared medically and neurologically, then she probably needs to be sent to the behavioral unit for further assessment and evaluation. In the interim, I am going to start her on a low dose of antipsychotic to help organize her thinking. If this is a delirium, it will help; and if it is some other more serious or prolonged mental illness, it will help. TRANSINT:[id number] Voice Confirmation ID: [id number] DOCUMENT ID: [id number] CONSULT REPORT [id number] SOWMYA PARSON OCTAVIO LOVETT MD at 1227 CC: [id number] DICTATION DATE: 06/30/17 1423 MATERNITY FLOOR SUPERVISOR: 06/30/17 1909 ADM IN [place] [id number] [place] [id number]
--- NOTE | 2017-07-01 13:48 | NUR ---
Nutrition Follow Up: Pt nurse stated that pt was upset at the time of RD visit. Spoke with pt's (who was outside of pt room) who reported that pt needed help with meals. He said that she cannot feed herself. Pt's said that he felt she would eat better if someone would feed her. RD spoke with MD and CUSTODIAL WORKER regarding changing diet to regular. Both agreed. Pt is eating 23% meal avg on an AHA diet. +BM 06/29/17. No new wt to assess. Labs reviewed. Meds noted. Will change diet to regular to encourage po intake. Will send Ensure with meals. RD will continue to monitor pt progress.
--- NOTE | 2017-07-01 14:03 | NUR ---
Patient Name: SOWMYA PARSON Admission Status: ER Accout number: [id number] Admission Date: 06-28-2017 : 1930 Admission Diagnosis:ALTERED MENTAL STATUS, UNSPECIFIED Attending: MERLYN Current LOS: 3 Anticipated DC Date: Planned Disposition: Home Health Service Primary Insurance: [employer] ADV PLANNED EXTERNAL PROVIDER: [facility] Discharge Planning Comments: * Is the patient Alert and Oriented? Yes 0 * How many steps to enter\\exit or inside your home? RAMP 0 * PCP DR. ANDERSON FRANCOIS 0 * Pharmacy [facility] 0 * Preadmission Environment Home with Family 0 * ADLs Partial Dependent 0 * Partial ADLs (Assistance needed) Medication Management 0 * Equipment Walker Wheelchair 0 * Other Equipment NO MEDICAL EQUIPMENT PROVIDER PREFERENCE 0 * List name and contact numbers for known caregivers / representatives who currently or will assist patient after discharge: NERY PARSON, SPOUSE, [phone] 0 * Community resources currently utilized Home Health 0 * Please name any agencies selected above. [facility], 0 * Additional services required to return to the preadmission environment? Yes * Can the patient safely return to the preadmission environment? Yes 0 * Has this patient been hospitalized within the prior 30 days at any hospital? Yes 0 CM MET WITH PT IN ROOM TO DISCUSS DISCHARGE PLANNING AND NEEDS. PT VERY PARONOID, SPEAKING IN WHISPER SO THAT "THEY" DO NOT HEAR, REPORTS THE PEOPLE IN THE [place] ARE WATCHING HER AND THAT THE THERAPIST WROTE THINGS ABOUT HER FOR THE POLICE AND ALSO THAT THE POLICE WILL BE HERE ANY MINUTE TO ARREST EVERYONE. PT REQUIRED FREQUENT REDIRECTION TO ASSESSMENT QUESTIONS. PT IS AWARE THAT SHE IS IN THE HOSPITAL, REPORTS WANTING TO LEAVE AND GO HOME WHERE SHE LIVES WITH HER . PT REPORTS USING A WALKER AND NO OUTSIDE SERVICES ASSISTING IN THE HOME. PT DENIES DISCHARGE NEEDS, REPORTS HER SPOUSE WILL PICK HER UP FOR DISCHARGE HOME. CM SPOKE TO PARRIS MARIE WHO REPORTS PT TO BE MEDICALLY STABLE AND WOULD LIKE TO HAVE PT ADMITTED TO [facility]. CM CALLED PT'S SPOUSE, NERY PARSON, , WHO REPORTS THAT PT DID NOT START ACTING THIS WAY UNTIL HER MEDICATION WAS CHANGED YESTERDAY. PT KICKED MR. PARSON OUT OF THE ROOM THIS MORNING. MR. PARSON "IS NOT INCLINED" TO HAVE HIS IN [facility] AND CONTINUES TO PLAN TO BRING HER HOME. THEY HAVE AIDE SERVICES FOR PT 3-4 TIMES PER WEEK TO ASSIST MR. PARSON WITH PT'S CARE. PT ALSO HAS PHYSICAL THERAPY AND NURSING WITH [facility]. MR. PARSON WOULD LIKE TO SPEAK TO THE DOCTOR AND WILL WAIT AT PT'S ROOM TO SEE THE DOCTOR OR NURSE PRACTITIONER. CM NOTIFIED PARRIS JENNIFERNATALIE. CM CALLED [facility], , SPOKE TO MAKI AND VERIFIED PT IS ACTIVE ON HOSPITAL HOLD FOR RESUMPTION OF CARE. MAKI REPORTED THAT PT WAS AT [facility] FROM 06-23 UNTIL 06-28 AND WHEN THE [facility] NURSE WENT TO THE HOME, CALLED THE AMBULANCE PT WAS NOT VERBALLY RESPONSIVE. [facility] STAFF TRIED TO GET PT'S SPOUSE TO CONSENT TO [facility] PLACEMENT FOR PT, BUT HE REFUSED. [facility] WILL ACCEPT PT BACK FOR RESUMPTION OF HOME HEALTH IF DISCHARGED HOME. FOR DISCHARGE HOME AND RESUMPTION OF HOME HEALTH, NOTIFY [facility] AT [phone], FAX DISCHARGE INFORMATION TO [phone]. CM TO CONTINUE TO FOLLOW AND ASSIST NEEDED. Refund Clerk: Kenneth eL
--- NOTE | 2017-07-01 14:57 | NUR ---
Wound care noted red open areas on right hip. Possibly ruptured blisters or scratches? Will recommend an antibiotic ointment and protection with bordered gauze. Wound care will follow.
[2017-07-01 19:00] VITALS: BP 103/50
--- NOTE | 2017-07-01 19:20 | NUR ---
RECEIVED REPORT, WILL ASSUME CARE OF PT, PT IS VISITING WITH FRIEND, DENIES ANY NEEDS AT THIS TIME, BED IS LOW, SRX2, BOX ALARM IS ON, CALL LIGHT IN REACH, WILL CONTINUE CARE OF PLAN
--- NOTE | 2017-07-02 03:02 | NUR ---
ASSESSMENT COMPLETE, SEE FLOWSHEET, PT SLEEPING, BED IS LOW, SRX2, BOX ALARM IS ON, CALL LIGHT IN REACH, WILL CONTINUE PLAN OF CARE
[2017-07-02 04:00] VITALS: BP 128/65
[2017-07-02 05:43] LABS: BASOPHILS 0.2 % (0-2); EOSINOPHILS 1.2 % (0-7); HEMATOCRIT 32.9 % (36.0-48.0); HEMOGLOBIN 10.5 g/dL (12-16); IMMATURE GRANULOCYTES 0.3 % (0-5); MCH 28.5 pg (26.0-34.0); MCHC 31.9 g/dL (31.0-37.0); MCV 89.4 fL (80.0-100.0); MEAN PLATELET VOLUME 11.1 fL (7.4-10.4); MONOCYTES 8.8 % (2-11); NEUTROPHILS 73.5 % (40-80); PLATELET COUNT 282 10x3/uL (130-400); RBC 3.68 10x6/uL (4.00-5.40); RDW 13.6 % (11.5-14.5)
[2017-07-02 08:00] VITALS: BP 157/108
--- NOTE | 2017-07-02 09:15 | NUR ---
OOB TO CHAIR WITH PT ASSIST.
[2017-07-02 12:00] VITALS: BP 124/82
--- NOTE | 2017-07-02 15:38 | NUR ---
BACK TO BED WITH PT ASSIST. TELEMETRY SR. WILL MONITOR NEEDS.
[2017-07-02 16:00] VITALS: BP 137/43
[2017-07-02 19:00] VITALS: BP 156/60
[2017-07-03 04:00] VITALS: BP 184/78
[2017-07-03 05:56] LABS: BASOPHILS 0.3 % (0-2); EOSINOPHILS 2.2 % (0-7); HEMATOCRIT 33.8 % (36.0-48.0); HEMOGLOBIN 11.2 g/dL (12-16); IMMATURE GRANULOCYTES 0.3 % (0-5); LYMPHOCYTES 17.4 % (15-50); MCH 28.9 pg (26.0-34.0); MCHC 33.1 g/dL (31.0-37.0); MCV 87.1 fL (80.0-100.0); MEAN PLATELET VOLUME 10.6 fL (7.4-10.4); MONOCYTES 9.8 % (2-11); PLATELET COUNT 271 10x3/uL (130-400); RBC 3.88 10x6/uL (4.00-5.40); RDW 13.6 % (11.5-14.5)
[2017-07-03 06:13] LABS: CALC OSMOLALITY 277 mosm/kg (275-300); CALCIUM 8.2 mg/dL (8.5-10.1); CHLORIDE - SERUM 105 mmol/L (98-107); CREATININE - SERUM 0.5 mg/dL (0.6-1.3); GLUCOSE 98 mg/dL (74-106); SODIUM 141 mmol/L (136-145); UREA NITROGEN 3 mg/dL (7-18); eGFR NON AFRICAN AMERICAN > 90 mL/min (90-120)
[2017-07-03 06:24] LABS: POTASSIUM - SERUM 2.5 mmol/L (3.5-5.1)
[2017-07-03 08:22] VITALS: BP 204/90
--- NOTE | 2017-07-03 10:14 | NUR ---
TELEMETRY SR. REFUSES TO GET OOB WITH PT. EXTEME CONFUSION AND PARANIOA NOTED. WILL MONITOR.
--- NOTE | 2017-07-03 12:13 | NUR ---
INCREASED CONFUSION NOTED. YELLING OUT AND SHAKING ARMS AND LEGS. THRASHIN TOUNG AND HEAD AROUND AND BACK AND FORTH. WHEN ASKED TO STOP MOVING AROUND AND TRY TO RELAX SHE EVENTUALY CALMED DOWN. STILL CONFUSED AND PARANOID. REFUSING BREATHING TX AND REFUSING TO EAT. WILL CONT. TO MONITOR.
[2017-07-03 12:26] VITALS: BP 133/67
--- NOTE | 2017-07-03 14:43 | NUR ---
DRSG CHANGED TO RIGHT BUTTOCKS.
[2017-07-03 16:15] VITALS: BP 144/59
--- NOTE | 2017-07-03 19:45 | NUR ---
PT RESTING IN BED. ALERT WITH CONFUSION AND POOR SHORT TERM RECALL. SR PER TELEMETRY. NONLABORED RESPIRATIONS ON ROOM AIR. SALINE LOCK TO LEFT WRIST SEE COMPLETED SHIFT ASSESSMENT. BOX ALARM ATTACHED TO BED AND PATIENT.CPOC.
--- NOTE | 2017-07-03 21:56 | NUR ---
BEDTIME MEDS GIVEN. ALARM BOX IN PLACE.
[2017-07-03 22:14] VITALS: BP 116/60
--- NOTE | 2017-07-04 00:29 | NUR ---
RECHECK POTASSIUM 3.5 NO FURTHER ACTION REQUIRED.
[2017-07-04 00:45] VITALS: BP 110/42
--- NOTE | 2017-07-04 03:30 | NUR ---
PT RESTING WITH NO DISTRESS. BOX ALARM IN PLACE. CPOC.
--- NOTE | 2017-07-04 07:30 | NUR ---
RESTING QUIETLY EYES CLOSED RESP UNLABORED NAD NOTED
[2017-07-04 08:00] VITALS: BP 138/60; BP 138/62
[2017-07-04 08:59] LABS: BASOPHILS 0.2 % (0-2); EOSINOPHILS 1.5 % (0-7); HEMATOCRIT 34.8 % (36.0-48.0); HEMOGLOBIN 11.4 g/dL (12-16); IMMATURE GRANULOCYTES 0.2 % (0-5); LYMPHOCYTES 19.2 % (15-50); MCH 28.9 pg (26.0-34.0); MCHC 32.8 g/dL (31.0-37.0); MCV 88.3 fL (80.0-100.0); MEAN PLATELET VOLUME 10.5 fL (7.4-10.4); MONOCYTES 10.3 % (2-11); NEUTROPHILS 68.6 % (40-80); PLATELET COUNT 241 10x3/uL (130-400); RBC 3.94 10x6/uL (4.00-5.40); RDW 13.9 % (11.5-14.5); WBC 12.3 10x3/uL (4.8-10.8)
[2017-07-04 09:20] LABS: ANION GAP 13.3 mmol/L (8-16); CALCIUM 8.6 mg/dL (8.5-10.1); CARBON DIOXIDE 25.1 mmol/L (21.0-32.0); POTASSIUM - SERUM 3.4 mmol/L (3.5-5.1)
[2017-07-04 09:23] LABS: CREATININE - SERUM 0.8 mg/dL (0.6-1.3)
--- NOTE | 2017-07-04 10:00 | NUR ---
UP TO CHAIR PER PT NAD NOTED
[2017-07-04 12:00] VITALS: BP 128/61
[2017-07-04 16:00] VITALS: BP 136/64
[2017-07-04 19:00] VITALS: BP 189/86
--- NOTE | 2017-07-04 19:50 | NUR ---
SPEECH THERAPY TRYING TO EVAL PT AND COULD NOT GET HER TO FOLLOW DIRECTIONS. ASSESSED PATIENT AND HER PUPILS ARE EQUAL AND REACTIVE. SHE WILL BLINK HER EYES TO TOUCH AND LOUDLY CALLING HER NAME. REPORT FROM DAY NURSE STATES THIS HAS BEEN HOW PATIENT HAS BEEN ALL DAY. ST/108 PER TELEMETRY. NONLABORED RESPIRATIONS ON ROOM AIR. SALINE LOCK TO LEFT WRIST. SEE ASSESMENT. CPOC.
--- NOTE | 2017-07-04 21:47 | NUR ---
AWAITING RETURN CALL FROM JULIO MARIE TO DISCUSS HOLDING PATIENT'S HS MEDS DUE TO HER LOC. VSS. NO DISTRESS, JUST MINIMAL BLINKING OF EYES WHEN STIMULATED.
--- NOTE | 2017-07-04 21:57 | NUR ---
SPOKE WITH JULIO MARIE APN. REVIEWED NOTES PER PSYCH EVAL DONE BY DR LOVETT TODAY AND IT RECOMMEDED STOPPING THE SINEQUAN. ORDER TO D/C AT THIS TIME.
--- NOTE | 2017-07-04 23:16 | NUR ---
ATTEMPTED TO GET PT TO TAKE HS MEDS AND SHE IS TOO LETHARGIC TO SAFELY GET HER TO SWALLOW. WILL HOLD ALL HS MEDS.
[2017-07-05] VITALS: BP 188/106
--- NOTE | 2017-07-05 02:15 | NUR ---
COMPLETE BED BATH AND LINEN CHANGE. PT WITH EYES OPEN, WILL NOT FOLLOW COMMANDS. ATTEMPTED TO PLACE SMALL AMOUNT OF WATER IN HER MOUTH AND SHE JUST LET IT DRIBBLE DOWN HER CHIN. STILL WANTING PT TO GET HER CARDIZEM BY MOUTH, BUT IT IS NOT SAFE. ALL MEDS HELD THIS SHIFT.
[2017-07-05 04:00] VITALS: BP 186/96
[2017-07-05 05:52] LABS: BASOPHILS 0.3 % (0-2); HEMATOCRIT 37.2 % (36.0-48.0); HEMOGLOBIN 12.2 g/dL (12-16); IMMATURE GRANULOCYTES 0.2 % (0-5); LYMPHOCYTES 12.4 % (15-50); MCHC 32.8 g/dL (31.0-37.0); MCV 88.6 fL (80.0-100.0); MEAN PLATELET VOLUME 11.6 fL (7.4-10.4); MONOCYTES 10.2 % (2-11); NEUTROPHILS 74.9 % (40-80); PLATELET COUNT 270 10x3/uL (130-400); RDW 14.5 % (11.5-14.5); WBC 11.4 10x3/uL (4.8-10.8)
[2017-07-05 06:00] LABS: ANION GAP 12.7 mmol/L (8-16); CALCIUM 9.1 mg/dL (8.5-10.1); CARBON DIOXIDE 27.4 mmol/L (21.0-32.0); CREATININE - SERUM 0.8 mg/dL (0.6-1.3); POTASSIUM - SERUM 3.1 mmol/L (3.5-5.1)
[2017-07-05 08:57] VITALS: BP 162/80
--- NOTE | 2017-07-05 10:58 | NUR ---
WITHHELD 1100 TX DUE TO INCREASED HR OF 138 NURSE NOTIFIED
[2017-07-05 12:20] VITALS: BP 92/59
--- NOTE | 2017-07-05 14:08 | PN ---
PATIENT:SOWMYA PARSON APRIL MEDICAL RECORD: [id number] LOCATION:D. D.211 ADMISSION DATE: 06/28/17 PROGRESS NOTE DATE OF SERVICE: 07/04/2017 SUBJECTIVE: The patient's case was discussed. She has no new complaint. OBJECTIVE: The patient continues to have intermittent periods of confusion. As described by her primary care doctor and confirmed by family and friends, the patient is having episodes where she is seriously and profoundly confused and others where she is relatively oriented. The patient herself recognizes that this is happening, although she is unable to make much in the way of a guess as to what the causes. ASSESSMENT: 1. Delirium. 2. Dementia. PLAN: Despite the patient's relative periods of being intact, she clearly has evidence of cognitive impairment even at her baseline, although the level was mild. In reviewing her medications, I think that there are a couple medicines that are problematic. The doxepin that she takes for sleep is extremely anticholinergic and she is taking Atarax for some on an as needed basis for some itching and that is very much antihistaminic. These 2 medications are not good for anyone in any shape at age 87 and if at all possible, I would recommend that they be discontinued. Regarding the Abilify if that is felt to be tied to the confusion, then by all means, it should be stopped. Because the patient does not have symptoms that would represent an acute danger other than just needing some level of supervision, she does not meet criteria for an inpatient hospital stay. I would recommend outpatient testing by Dr. Opal Meyer and certainly making the changes regarding her medications that are both antihistaminic and anticholinergic would be helpful. It does not seem unreasonable to have followup with neurology. There may be some other underlying pathology that I am not considering, but I do think that the patient has baseline evidence of cognitive impairment. I am a little reluctant to keep adding medications, but once this is sorted out, I have little doubt she would benefit from use of a cholinesterase inhibiting medication. TRANSINT:[id number] Voice Confirmation ID: [id number] DOCUMENT ID: [id number] OCTAVIO LOVETT MD at 8727 CC: [id number] DICTATION DATE: 07/04/17 1448 SUPERVISOR CONTACT AND SERVICE CLERKS: 07/04/17 1825 ADM IN [facility] [address] [place] [id number]
[2017-07-05 15:48] VITALS: BP 175/84
--- NOTE | 2017-07-05 16:45 | NUR ---
PT TO LETHARGIC TO TAKE PO MEDS
[2017-07-05 19:00] VITALS: BP 201/90
--- NOTE | 2017-07-05 21:25 | NUR ---
PT RESTING IN BED WITH EYES CLOSED. GRIMACES WHEN TURNED AND REPOSITIONED. NONVERBAL TO COMMENTS FROM STAFF. SEE ASSESSMENT. MONITOR AND CPOC.
--- NOTE | 2017-07-05 22:10 | NUR ---
PT MORE ALERT/ ATTEMPTED TO GIVE HER SOME ENSURE AND THEN WATER, BOTH OF WHICH SHE CLAMPED HER TEETH TOGETHER AND WOULD NOT TAKE IT. PT TELLS NURSE "YOU JUST THINK YOU CAN" AND CLOSED EYES TIGHTLY AND WOULD NOT REOPEN THEM. ATTEMPTED TO GIVE CARDIZEM IN APPLESAUCE AND PT SPIT OUT THE SMALL AMOUNT NURSE WAS ABLE TO PLACE IN MOUTH. BOX ALARM IN PLACE. BP 201/90. WILL MONITOR.
[2017-07-06 04:14] VITALS: BP 124/77
--- NOTE | 2017-07-06 05:07 | NUR ---
AFTER PATIENT WAS GIVEN A BED BATH AND LINEN CHANGE, SHE WAS BRIEFLY ALERT AND TALKING. PT SAID "I JUST DON'T KNOW" AND HAD A TEAR ROLLING DOWN HER CHEEK. SHE THEN CLOSED HER EYES AND WOULD NOT SPEAK TO OR ACKNOWLEDGE NURSE ANYMORE. BOX ALARM IN PLACE. SIDERAILS UP X 2. MONITOR AND CPOC.
[2017-07-06 06:21] LABS: BASOPHILS 0.4 % (0-2); EOSINOPHILS 1.4 % (0-7); HEMOGLOBIN 12.9 g/dL (12-16); IMMATURE GRANULOCYTES 0.3 % (0-5); LYMPHOCYTES 14.3 % (15-50); MCH 28.7 pg (26.0-34.0); MCHC 32.3 g/dL (31.0-37.0); MCV 89.1 fL (80.0-100.0); MEAN PLATELET VOLUME 11.7 fL (7.4-10.4); MONOCYTES 10.2 % (2-11); NEUTROPHILS 73.4 % (40-80); RBC 4.49 10x6/uL (4.00-5.40); RDW 14.7 % (11.5-14.5)
[2017-07-06 06:32] LABS: PLATELET COUNT 330 10x3/uL (130-400); WBC 15.2 10x3/uL (4.8-10.8)
[2017-07-06 06:43] LABS: ANION GAP 15.4 mmol/L (8-16); CALCIUM 8.9 mg/dL (8.5-10.1); CARBON DIOXIDE 23.9 mmol/L (21.0-32.0); CREATININE - SERUM 0.8 mg/dL (0.6-1.3); POTASSIUM - SERUM 4.3 mmol/L (3.5-5.1)
[2017-07-06 08:41] LABS: ALBUMIN 2.6 g/dL (3.4-5.0); BILIRUBIN - TOTAL 0.45 mg/dL (0.2-1.3); PROTEIN - SERUM 7.1 g/dL (6.4-8.2); THYROID STIMULATING HORMONE 13.66 uIU/mL (0.36-3.74)
[2017-07-06 08:49] VITALS: BP 179/88
--- NOTE | 2017-07-06 09:44 | NUR ---
TELEMETRY UCAF. MEDS TAKEN WITHOUT RESISTANCE. TX FOR HTN AND C/O ALCANTAR. BED ALARM OPN. WILL CONT. PLAN OF CARE.
--- NOTE | 2017-07-06 10:12 | NUR ---
PT REFUSED TX
--- NOTE | 2017-07-06 11:18 | NUR ---
HAS SCRATED HR HEAD WITH HER FINGER NAILS DURING AN OUTBURST OF ANGER. HAS THROWN HER DRINK ON THE FLOOR. JULIO EDMOND NOTIFIED.
[2017-07-06 11:58] VITALS: BP 156/88
[2017-07-06 16:09] VITALS: BP 154/67
[2017-07-06 19:00] VITALS: BP 148/97
--- NOTE | 2017-07-06 20:20 | NUR ---
RESUMED CARE OF PT, LYING IN BED RESPIRATIONS EVEN AND UNLABORED ON ROOM AIR. 103 SR ON TELEMETRY. RIGHT WRIST SALINE LOCKED. BOX ALARM ON, WILL CONTINUE TO MONITOR. SEE NURSE ASSESSMENT. CALL LIGHT IN REACH.
--- NOTE | 2017-07-06 21:15 | NUR ---
ATTEMPTED TO GIVE NIGHT MEDS, PT AWAKE AND TAKING SIPS OF WATER. CLENCHED MOUTH WHEN TRIED TO GIVE PILLS. WILL CONTINUE TO MONITOR. CALL LIGHT IN REACH.
[2017-07-07 01:39] VITALS: BP 190/105
--- NOTE | 2017-07-07 03:07 | NUR ---
BED BATH AND LINENS CHANGED, MORE ALERT AT THIS TIME. ATTEMPTED TO GIVE SIPS OF WATER AND NIGHT MEDS. CONTINUES TO REFUSE. CLENCHING TEETH AND PUSHING MY HAND AWAY. WILL CONTINUE TO MONITOR. CALL LIGHT IN REACH. BED ALARM ON.
--- NOTE | 2017-07-07 03:59 | NUR ---
COMMERCIAL PAINTER AT BEDSIDE TO OBTAIN VITALS, CALL LIGHT IN REACH. WILL CONTINUE WITH PLAN OF CARE.
[2017-07-07 05:32] VITALS: BP 156/76
--- NOTE | 2017-07-07 05:51 | NUR ---
MORE AWAKE, BUT VERY FRIGHTENED. REACHED TO TOUCH HER KNEE FOR COMFORT, AND YELLS "DON'T TOUCH ME." STATES SHE'S IN THE HOSPITAL AND LEAVE ME ALONE. STILL REFUSING ALL FORMS OF TREATMENT. REFUSED LAB THIS AM. CALL LIGHT IN REACH. WILL CONTINUE TO MONITOR.
[2017-07-07 06:14] LABS: RAPID PLASMA REAGIN Non Reactive (Non Reactive)
[2017-07-07 07:26] LABS: FOLATE (FOLIC ACID) - SERUM 13.2 ng/mL (>3.0)
[2017-07-07 09:27] VITALS: BP 175/93
--- NOTE | 2017-07-07 09:37 | NUR ---
TLEMETRY ST. UP WITH PT ASSIST. WILL CONT. PLAN OF CARE.
--- NOTE | 2017-07-07 09:57 | NUR ---
Patient Name: SOWMYA PARSON Encounter No: [id number] : 1930 Primary Insurance: [employer]ARE ADV Anticipated DC Date: 07-07-2017 Planned Disposition: Home Health Service External Planned Provider: [facility] DCP follow-up note: CM SPOKE TO PT AND SPOUSE IN ROOM, BOTH REPORT THAT PT WILL BE GOING HOME WITH SPOUSE AND WOULD LIKE [facility] TO RESUME. IMPORTANT MESSAGE FROM MEDICARE PROVIDED AND DISCUSSED. FOR DISCHARGE HOME AND RESUMPTION OF HOME HEALTH, NOTIFY [facility] AT [phone], FAX DISCHARGE INFORMATION TO [phone]. CM TO CONTINUE TO FOLLOW AND ASSIST NEEDED. Girls Swimming Coach: Kenneth Le
[2017-07-07 11:17] LABS: ANA REFLEX - DIRECT Negative (Negative)
[2017-07-07 12:50] VITALS: BP 160/66
--- NOTE | 2017-07-07 14:12 | NUR ---
Nutrition follow-up: Diet: Regular as tolerated with Ensure TID PO intake very poor; < 25% of meals due to pt being lethargic. +BM Wt: 119# May need to consider nutrition support if pt continues to have poor po intake and it is medically feasible. RDN following.
[2017-07-07 16:53] VITALS: BP 145/74
--- NOTE | 2017-07-07 19:50 | NUR ---
RESUMED CARE OF PT, LYING IN BED RESPIRATIONS EVEN AND UNLABORED ON ROOM AIR EATING DINNER. 96 SR ON TELEMETRY. MORE AWAKE TODAY THAN YESTERDAY, MUCH MORE COOPERATIVE. NO NEEDS AT THIS TIME. CALL LIGHT IN REACH. SEE NURSE ASSESSMENT.
[2017-07-07 20:00] VITALS: BP 170/68
--- NOTE | 2017-07-08 03:10 | NUR ---
ANUSOL GIVEN FOR DISCOMFORT, CALL LIGHT IN REACH. WILL CONTINUE TO MONITOR.
--- NOTE | 2017-07-08 03:13 | NUR ---
LYING IN BED WITH EYES CLOSED, CALL LIGHT IN REACH. WILL CONTINUE TO MONITOR.
[2017-07-08 05:24] VITALS: BP 139/53
[2017-07-08 05:47] LABS: BASOPHILS 0.5 % (0-2); EOSINOPHILS 2.9 % (0-7); HEMOGLOBIN 11.6 g/dL (12-16); IMMATURE GRANULOCYTES 0.2 % (0-5); LYMPHOCYTES 14.9 % (15-50); MCH 28.5 pg (26.0-34.0); MCHC 32.2 g/dL (31.0-37.0); MCV 88.5 fL (80.0-100.0); MEAN PLATELET VOLUME 11.4 fL (7.4-10.4); MONOCYTES 9.6 % (2-11); NEUTROPHILS 71.9 % (40-80); PLATELET COUNT 344 10x3/uL (130-400); RBC 4.07 10x6/uL (4.00-5.40); RDW 14.4 % (11.5-14.5); WBC 12.1 10x3/uL (4.8-10.8)
[2017-07-08 06:13] LABS: ANION GAP 10.5 mmol/L (8-16); CALCIUM 10.6 mg/dL (8.5-10.1); CARBON DIOXIDE 29.5 mmol/L (21.0-32.0); CREATININE - SERUM 1.1 mg/dL (0.6-1.3)
[2017-07-08 08:00] VITALS: BP 147/55
[2017-07-08 11:52] VITALS: BP 150/55
--- NOTE | 2017-07-08 13:12 | NUR ---
UP AMBULATING WITH PT ASSIST.
--- NOTE | 2017-07-08 15:08 | NUR ---
Patient Name: SOWMYA PARSON Encounter No: [id number] : 1930 Primary Insurance: [employer] MEDICARE ADV Anticipated DC Date: 07-07-2017 Planned Disposition: Home Health Service External Planned Provider: [facility] DCP follow-up note: CM RECEIVED ORDER FOR INPATIENT REHAB PRESCREENING, MET WITH PT AND SPOUSE IN ROOM, DISCUSSED REHAB OPTIONS AND LOCATION. PT AND SPOUSE BOTH REPORT THAT PT WANTS TO GO HOME. PT'S SPOUSE INSISTS THAT HE HAS ABILITY AND WILLINGNESS TO CARE FOR PT AT HOME. PT'S SPOUSE REPORTS HOME HEALTH THERAPY ALONG WITH PT GETTING UP MORE WITH BE ENOUGH TO GET HER STRONGER. CM EXPLAINED LIMITATION OF HOME HEALTH PHYSICAL THERAPY AND THE ADVANTAGES OF INPATIENT REHAB IF ACCEPTED. PT'S SPOUSE WILL SPEAK TO THE REHAB TELECOMMUNICATIONS ADMINISTRATOR FOR INVERNESS AND ACCEPT INFORMATION, BUT REPORTS HE WANTS TO TAKE PT HOME. CM NOTIFIED ARAMIS OF [facility]. SOMEONE FROM [facility] INPATIENT [facility] WILL MEET WITH PT AND SPOUSE TODAY AND NOTIFY CM IF PT/SPOUSE CHANGES MIND ABOUT GOING TO REHAB. PT'S SPOUSE REPORTS HE WANTS TO TAKE PT HOME. FOR DISCHARGE HOME AND RESUMPTION OF HOME HEALTH, NOTIFY [facility] AT [phone], FAX DISCHARGE INFORMATION TO [phone]. CM TO CONTINUE TO FOLLOW AND ASSIST NEEDED. Technical Instructor Course Developer: Kenneth Le
[2017-07-08] MEDS ORDERED: CARDIZEM60 MG PO (15:44)
--- NOTE | 2017-07-08 16:13 | NUR ---
Rehab Note- Acute Rehab Prescreen order received. Met with the patient and her . The patient's is wanting to take the patient home and feels that he can care for her, as he has been for 69yrs now. Provided the with acute rehab information and business card for contact information in case decides on an acute rehab stay after going home. Informed Matthew, CM of the patient and 's decision of being discharged home. Thank you for this referral! Roz Gramajo RN Cinical Liaison, [facility]
--- NOTE | 2017-07-08 16:56 | NUR ---
IV AND TELEMETRY DCD. DC PLANS GIVEN. UNDERSTANDING VOICED. ESCORTED TO CAR BY W/C.
--- NOTE | 2017-07-08 17:22 | EEG ---
PATIENT:SOWMYA PARSON APRIL DATE OF SERVICE: 06/28/17 MEDICAL RECORD: [id number] DATE OF : [birth year] LOCATION:D.211 D.M2 ADMISSION DATE: 06/28/17 REFERRING PHYSICIAN: INTERPRETING PHYSICIAN: OBI CHAO MD DATE OF SERVICE: 07/06/2017 Referred by myself as an inpatient, currently in room 2119. EEG NUMBER: [id number]. DATE OF EXAMINATION: 07/06/2017 at 12:30 p.m. TECHNICAL DATA: This electroencephalographic recording consisted of approximately 20 minutes of data collection utilizing the international 10/20 system of electrode placement and both referential and non-referential montages. Sixteen channels of electrocerebral recording are accompanied by a 17th channel dedicated to the electrocardiographic rhythm and 2 channels of electromyographic recording. Recording is performed entirely in the lethargic state utilizing activation by photic stimulation. ELECTROENCEPHALOGRAPHIC DATA: The entirety of the recorded electrocerebral activity is performed in the lethargic state. Electromyographic artifact remains prominent. Rapid eye movements are occasionally seen. Electromyographic artifact partially obscures the recorded electrocerebral activity. A posterior dominant background consists of a symmetric semi-arrhythmic waxing and waning 7-8 Hz alpha activity, which is suppressed by eye opening. Also seen is an intermittent irregular generalized and symmetric 2-3 Hz delta slowing, which occurs for periods of 1-2 seconds approximately once every 1-2 pages. No focal slowing is identified. No epileptiform discharges are seen. Photic stimulation induces no abnormal change in the recorded electrocerebral activity. INTERPRETATION: Intermittent slow, generalized (lethargy). This electroencephalographic recording is indicative of a mild to moderate diffuse encephalopathy. TRANSINT:[id number] Voice Confirmation ID: [id number] DOCUMENT ID: [id number] OBI CHAO MD at 1722 CC: [id number] DICTATION DATE: 07/07/17 08 QUARTER SEAMER: 07/07/171 DIS IN 07/08/17 [place] [id number] [place] [id number]
--- NOTE | 2017-07-08 17:28 | NUR ---
Patient Name: SOWMYA PARSON Admission Status: ER Accout number: [id number] Admission Date: 06-28-2017 : 1930 Admission Diagnosis:ALTERED MENTAL STATUS, UNSPECIFIED Attending: MERLYN Current LOS: 10 Anticipated DC Date: 07-08-2017 Planned Disposition: Home Health Service Primary [facility] ADV PLANNED EXTERNAL PROVIDER: [facility] Discharge Planning Comments: PT DISCHARGED HOME WITH SPOUSE. CM NOTIFIED JOEL OF [place] AT [phone], FAXED DISCHARGE INFORMATION TO [phone]. NO FURTHER DISCHARGE NEEDS IDENTIFIED. Vp Security: Kenneth Le
--- NOTE | 2017-07-09 13:35 | EC ---
PATIENT:SOWMYA PARSON APRIL DATE OF SERVICE: 06/28/17 SEX: F MEDICAL RECORD: [id number] DATE OF : 32 LOCATION:D.M2 D.211 AGE OF PATIENT: 87 ADMISSION DATE: 06/28/17 REFERRING PHYSICIAN: INTERPRETING PHYSICIAN: PHILLIP DONNELLY MD ECHOCARDIOGRAM REPORT ECHO CHARGES 4 ECHO COMPLETE CLINICAL DIAGNOSIS: TACHYCARDIA ECHOCARDIOGRAPHIC MEASUREMENTS (adult normal given) AC root (d.<3.7cm) 2.9 cm LV Septum d (<1.2 cm> 0.9 cm Valve Excursion 1.5 cm LV Septum (systole) 1.3 cm Left Atria (s.<4.0cm> 2.6 cm LVPW d(<1.2cm) 0.9 cm RV (d.<2.3cm) 2.1 cm LVPW (sytole) 1.3 cm LV diastole(<5.6CM) 4.2 cm MV E-F(>70mm/sec) cm LV systole 2.7 cm LVOT Diameter 1.5 cm MV exc.(>10mm) cm Est.ejection fraction (50-75%) % Pericardial Effusion N DOPPLER: LVIT cm/sec A 44.0 cm/sec E 135.0 cm/sec LA cm/sec RVSP 35.0 mmHg LVOT 83.0 cm/sec AOP1/2T m/s Asc. Ao 134 cm/sec RVOT 129 cm/sec RA cm/sec PA 76.0 cm/sec AV Gradient Peak 7.2 mmHg AV Mean 3.3 mmHg AV Area 1.0 cm MV Gradient Peak 6.7 mmHg MV Mean 2.8 mmHg MV Area cm COMMENTS: Precision Lens Grinder Apprentice: Esequiel DAMONOE Delicatessen Store Manager: 4 Dr. Donnelly TAPE# PACS DATE OF SERVICE: 07/08/2017 CONCLUSION: This is a technically challenging study with image quality, which was suboptimal. The overall ejection fraction appears to be hyperdynamic. The left atrial, right atrial and RV functions all appeared to be normal to hyperdynamic. There were no gross valvular abnormalities. No significant areas of seen stenosis or regurgitation. Pulmonary pressures appeared to be within normal limits on this evaluation. The pericardium appears to be normal. There were no gross thrombus, exudates, or effusions seen on this evaluation. The mitral annular area appears to have calcification, mild thickening and there was ECHOCARDIOGRAM REPORT [id number] SOWMYA PARSON some aortic sclerosis without stenosis. IVC appeared to collapse with inspiration, indicating likely normal CVP pressures or slightly low. TRANSINT:[id number] Voice Confirmation ID: [id number] DOCUMENT ID: [id number] PHILLIP DONNELLY MD at 1335 CC: [id number] DICTATION DATE: 07/08/17 1408 ESOL INSTRUCTOR: 07/08/17 2144 DIS IN 07/08/17 [facility] [address] [place] [address]
--- NOTE | 2017-07-09 13:35 | CN ---
PATIENT NAME:SOWMYA PARSON APRIL MEDICAL RECORD: [id number] : 31 LOCATION:D.Minh D.2119 ADMIT DATE: 06/28/17 ACCOUNT: [id number] CONSULTING PHYSICIAN: PHILLIP DONNELLY MD REFERRING PHYSICIAN: GREYSON TAM MD DATE OF CONSULTATION: 07/06/2017 HISTORY OF PRESENT ILLNESS: The patient is an 87-year-old white female, who presented with mental status changes, confusion and possible pneumonia. The patient had been admitted to an outlying hospital and had been discharged home from what I understand, the patient then was brought in by her family for confusion. The patient herself is not oriented to time or place. She does get some of the situation right. She is not complaining of any significant discomfort, pain or shortness of breath, but she says she does feel her heart going quickly at times and that may or may not correlate to her recent telemetry changes. The patient's records were reviewed. Most of the history is from the review. PAST MEDICAL HISTORY: The patient has a history of congestive heart failure. She states she has had 7 stents and angioplasties in the past. There is report in the chart that she has had atrial fibrillation, syncope and peripheral vascular disease. There is no report of necessary dementia in the past, possible lupus. SOCIAL HISTORY: At this point in time, it is really noncontributory. FAMILY HISTORY: Noncontributory. REVIEW OF SYSTEMS: Noncontributory. I am awaiting some previous notes from her hospitalization for the pneumonia. PHYSICAL EXAMINATION: GENERAL: The patient at this point in time is in sinus tachycardia rate of 115 to 120s; however, there are some telemetry strips in the chart where it looks as if she is going at about 150 pace and may be consistent with atrial flutter with 2:1 block and then she had an episode in the 180s that looked like it may be an accelerated junctional versus SVT. VITAL SIGNS: Her blood pressure has been very labile and I am concerned that we are doing automated blood pressures in the patient, who is having an arrhythmia and this may not be accurate. The highest blood pressure is 201/90 and there was a blood pressure just prior to that of 92/59, so it certainly very large disparity between the top and low blood pressure. HEENT: The patient has periorbital edema. She has corneal arcus, but she does have normal extraocular movements and her facies appears to be grossly symmetrical. She does have JVD and she does have a positive Kussmaul sign. HEART: Distant and there is adventitious sounds throughout lung field, but there is no distinct crackles, but the patient is lying fairly flat in the bed at this time with maybe an angle of 30 degrees. ABDOMEN: Soft, positive bowel sounds. EXTREMITIES: No clubbing, cyanosis. She has mild edema. SKIN: Her skin does not show mottling and she does not have any erythema around the extremities such as you would see with sepsis. LABORATORY DATA: Her labs were reviewed. Her telemetry and EKGs have been CONSULT REPORT [id number] SOWMYA PARSON APRIL reviewed. IMPRESSION: Supraventricular tachycardia. This patient does have a history of atrial fibrillation, possibly atrial flutter and I think, she has had some atrial flutter. They were able to give her Cardizem and I think that is very reasonable, especially in the light of her elevated blood pressures to get a more consistent rhythm and to maybe help towards the possibility of conversion to a permanent dysrhythmia while she is hospitalized can be reasonable to use amiodarone in this patient. She is not at high risk at this point for amiodarone-induced pulmonary toxicity from her history. I would like to get an echocardiogram and with the periorbital edema and the JVD and inability to get good auscultative readings for possible S3, I would like to get a BNP level, although with her recent infection, it may be falsely elevated, certainly would give us a trend whether there is some evidence of congestive heart failure that may be amplifying her sympathetic nervous system and increasing her heart rate. Her heart rate may be appropriate for her clinical situation. There is made mention that the patient may have pneumonia and from that standpoint, it may be reasonable for heart rate to be in the one-teens. We will make further adjustments based upon whether there is some occult evidence of congestive heart failure, her response to the amiodarone and what her echo report shows. TRANSINT:[id number] Voice Confirmation ID: [id number] DOCUMENT ID: [id number] PHILLIP DONNELLY MD at 1336 CC: [id number] DICTATION DATE: 07/06/17 1756 CIRCUIT DESIGNER: 07/07/17 0101 DIS IN 07/08/17 [place] [id number] [place] [id number]
== END 2017-07-08 17:02 | disposition home health service (06) | DRG 308 ==
LOC: D.ER 13:13 → D.MS 16:13 → D.M2 16:13
PROVIDERS: Emergency Medicine; Family Medicine; Psychiatry & Neurology Neurology; ADMIT Family Medicine
DX: I47.1 Supraventricular tachycardia (principal); G93.40 Encephalopathy, unspecified; I25.10 Atherosclerotic heart disease of native coronary artery without angina pectoris; Z95.5 Presence of coronary angioplasty implant and graft; E03.9 Hypothyroidism, unspecified; I11.0 Hypertensive heart disease with heart failure; I50.9 Heart failure, unspecified; I48.92 Unspecified atrial flutter; I73.9 Peripheral vascular disease, unspecified; E86.0 Dehydration; E78.5 Hyperlipidemia, unspecified; F41.8 Other specified anxiety disorders; G62.9 Polyneuropathy, unspecified; I48.2 Chronic atrial fibrillation; R41.0 Disorientation, unspecified; E87.6 Hypokalemia; F03.90 Unspecified dementia, unspecified severity, without behavioral disturbance, psychotic disturbance, mood disturbance, and anxiety

== ENCOUNTER 2017-07-09 15:20 | Inpatient (IN) | payer MEDICARE, MEDICAID ==
[~2017-07-09] VITALS: Ht 152.4 cm; Wt 68.0 kg
[~2017-07-09 15:20] MED LIST changes: +CARDIZEM60 MG PO
[2017-07-09 16:10] LABS: APPEARANCE CLEAR (CLEAR); BILIRUBIN NEGATIVE (NEGATIVE); COLOR YELLOW (YELLOW); GLUCOSE NEGATIVE (NEGATIVE); KETONE SMALL mg/dL (NEGATIVE); LEUKOCYTE ESTERASE NEGATIVE (NEGATIVE); NITRITE NEGATIVE (NEGATIVE); PROTEIN NEGATIVE (NEGATIVE); SPECIFIC GRAVITY 1.015 (1.005-1.020); UROBILINOGEN NORMAL (NORMAL)
[2017-07-09 16:22] LABS: BACTERIA FEW /hpf (NONE SEEN); EPITHELIAL CELLS OCC /hpf (0-5); RED CELLS - URINE 0-5 /hpf (0-5); WHITE CELLS - URINE 0-5 /hpf (0-5)
[2017-07-09 16:34] LABS: BASOPHILS 0.1 % (0-2); EOSINOPHILS 1.7 % (0-7); IMMATURE GRANULOCYTES 0.1 % (0-5); LYMPHOCYTES 13.2 % (15-50); MCH 28.8 pg (26.0-34.0); MCHC 32.4 g/dL (31.0-37.0); MCV 88.9 fL (80.0-100.0); MEAN PLATELET VOLUME 11.3 fL (7.4-10.4); MONOCYTES 10.7 % (2-11); NEUTROPHILS 74.2 % (40-80); PLATELET COUNT 349 10x3/uL (130-400); RBC 4.16 10x6/uL (4.00-5.40); RDW 14.1 % (11.5-14.5); WBC 14.3 10x3/uL (4.8-10.8)
[2017-07-09 16:44] LABS: ALBUMIN 2.9 g/dL (3.4-5.0); ANION GAP 13.2 mmol/L (8-16); BILIRUBIN - TOTAL 0.46 mg/dL (0.2-1.3); CALCIUM 9.6 mg/dL (8.5-10.1); CARBON DIOXIDE 26.9 mmol/L (21.0-32.0); POTASSIUM - SERUM 3.1 mmol/L (3.5-5.1); PROTEIN - SERUM 7.3 g/dL (6.4-8.2)
[2017-07-09 16:45] LABS: CREATININE - SERUM 0.8 mg/dL (0.6-1.3)
[2017-07-09 19:53] VITALS: BP 154/71
[2017-07-09 23:30] VITALS: BP 123/55
[2017-07-09 23:36] VITALS: BP 154/71; BMI 29.3
[2017-07-10 04:00] VITALS: BP 105/60
[2017-07-10 06:29] LABS: BASOPHILS 0.2 % (0-2); EOSINOPHILS 2.2 % (0-7); HEMATOCRIT 35.1 % (36.0-48.0); IMMATURE GRANULOCYTES 0.1 % (0-5); LYMPHOCYTES 12.9 % (15-50); MCH 28.3 pg (26.0-34.0); MCHC 31.3 g/dL (31.0-37.0); MCV 90.2 fL (80.0-100.0); MEAN PLATELET VOLUME 11.6 fL (7.4-10.4); MONOCYTES 9.3 % (2-11); NEUTROPHILS 75.3 % (40-80); PLATELET COUNT 344 10x3/uL (130-400); RBC 3.89 10x6/uL (4.00-5.40); RDW 14.4 % (11.5-14.5)
[2017-07-10 06:37] LABS: WBC 9.8 10x3/uL (4.8-10.8)
[2017-07-10 06:55] LABS: ALBUMIN 2.6 g/dL (3.4-5.0); ALKALINE PHOSPHATASE 41 U/L (46-116); ALT (SGPT) 15 U/L (10-68); CALC OSMOLALITY 274 mosm/kg (275-300); CALCIUM 9.2 mg/dL (8.5-10.1); CARBON DIOXIDE 27.5 mmol/L (21.0-32.0); CHLORIDE - SERUM 102 mmol/L (98-107); CREATININE - SERUM 0.7 mg/dL (0.6-1.3); POTASSIUM - SERUM 3.2 mmol/L (3.5-5.1); PROTEIN - SERUM 6.4 g/dL (6.4-8.2); SODIUM 139 mmol/L (136-145); UREA NITROGEN 10 mg/dL (7-18); eGFR NON AFRICAN AMERICAN 84 mL/min (90-120)
[2017-07-10 06:57] LABS: GLUCOSE 59 mg/dL (74-106)
--- NOTE | 2017-07-10 07:29 | NUR ---
PATIENT IN BED WITH IV INTACT. NO COMPLAINTS. BED ALARM ON. CALL LIGHT WITHIN REACH.
--- NOTE | 2017-07-10 08:05 | NUR ---
PT AOX1 RESP EVEN AND NONLABORED IV TO RIGHT FOREARM PATENT AND INTACT AT THIS TIME SRX2 BED AT LOWEST SETTING CALL LIGHT WITHIN REACH AT THIS TIME
[2017-07-10 10:07] VITALS: BP 148/71
--- NOTE | 2017-07-10 10:19 | NUR ---
REHAB PRESCREENING Rehab referral received and chart reviewed. Awaiting PT evaluation in order to fully assess rehab admission criteria is met. Rehab will continue to follow. Thank you for this referral! Meron Yeboah CRT Rehab Senior Research Fellow
--- NOTE | 2017-07-10 10:31 | NUR ---
REHAB PRESCREENING Ms. Matos insurance provider requires a preauthorization. She will also need an OT evaluation as well as a PT evaluation. I spoke with Viki who will put in for an OT consult. Rehab will begin prior authorization process as soon as evaluations have been completed. Meron Yeboah,FILM REPRODUCER Rehab Paramedic Instructor
--- NOTE | 2017-07-10 19:00 | NUR ---
REPORT RECIEVED ASSUMED CARE. PATIENT IN BED WITH IV INTACT. NO COMPLAINTS AT THIS TIME. CALL LIGHT WITHIN REACH.
--- NOTE | 2017-07-10 19:19 | NUR ---
PATIENT REFUSED TREATMENT
--- NOTE | 2017-07-10 19:30 | NUR ---
PATIENT IN BED WITH IV INTACT. REFUSES TO LET ME LISTEN TO HER LUNGS AND HEART. PATIENT CONFUSED AT THIS TIME. O2 ON 2L NC. TELE ON. DRESSING INTACT TO RIGHT BUTTOCK. TRIED TO REORIENT PATIENT. PATIENT ANGRY AND NOT WANTING TO BE TALKED TO RIGHT NOW. CALL LIGHT GIVEN TO PATIENT. EXPLAINED TO CALL IF NEEDED. VERBALIZED UNDERSTANDING.
[2017-07-10 20:00] VITALS: BP 153/86
--- NOTE | 2017-07-10 21:45 | NUR ---
PATIENT REFUSE MEDS. WILL NOT SPEAK AT THIS TIME. OPENS EYES BUT WHEN SPOKEN TO SHE LOOKS THE OTHER WAY. IV INTACT. CALL LIGHT WITHIN REACH.
[2017-07-11] VITALS: BP 142/50
--- NOTE | 2017-07-11 00:58 | NUR ---
TURENED PATIENT WITH AUTO SLIP COVER INSTALLER AT THIS TIME. IV INTACT. PATIENT STILL NOT SPEAKING. WILL TRY TO PLACE BSCDS WHEN PATIENT ALLOWS. CALL LIGHT WITHIN REACH.
--- NOTE | 2017-07-11 01:46 | NUR ---
PATIENT IN BED WITH EYES CLOSED RESTING QUIETLY. IV INTACT. NO COMPLAINTS OR SIGNS OF DISTRESS. CALL LIGHT WITHIN REACH.
[2017-07-11 04:00] VITALS: BP 152/62
--- NOTE | 2017-07-11 04:20 | NUR ---
PATIENT IN BED WITH EYES CLOSED RESTING QUIETLY AT THIS TIME. CALL LIGHT WITHIN REACH.
--- NOTE | 2017-07-11 04:25 | NUR ---
PATIENT IN BED WITH IV INTACT. NO COMPLAINTS OR SIGNS OF DISTRESS. RESTING QUIETLY. CALL LIGHT WITHIN REACH.
--- NOTE | 2017-07-11 06:48 | NUR ---
PATIENT IN BED WITH IV INTACT. NO COMPLAINTS AT THIS TIME. EYES CLOSED RESTING. CALL LIGHT WITHIN REACH.
--- NOTE | 2017-07-11 07:45 | NUR ---
PT ASSESSMENT COMPLETE PT REFUSES TO ACKNOWLEDGE STAFF IN ROOM REFUSES TO OPEN EYES OR RESPOND TO VERBAL STIMULI.
--- NOTE | 2017-07-11 09:45 | NUR ---
PATIENT ALERT IN BED WITH FAMILY PRESENT. NO SIGNS OF DISTRESS NOTED. PRIMARY NURSE GERARDO CORONA PRESENT AT BEDSIDE. SIDE RAILS UP X2. BED IN LOW POSITION. CALL LIGHT IN REACH.
--- NOTE | 2017-07-11 09:53 | NUR ---
PT FAMILY IN ROOM PT REFUSES TO ACKNOWLEDGE FAMILY IN ROOM. SPOUSE AT BEDSIDE ACCEPTING OF POSSIBLITY OF ALF PLACEMENT. PREFERS [facility] [place]
--- NOTE | 2017-07-11 09:57 | NUR ---
PT REFUSED TO AWAKEN TO TAKE ANY MEDICATIONS ALL REFUSED.
--- NOTE | 2017-07-11 10:11 | NUR ---
Patient Name: SOWMYA PARSON Admission Status: ER Accout number: [id number] Admission Date: 07-09-2017 : 1931 Admission Diagnosis: Attending: MERLYN Current LOS: 2 Anticipated DC Date: 07-13-2017 Planned Disposition: Assisted Facility Primary Insurance: [employer] ADV Discharge Planning Comments: CM MET WITH PATIENTS SPOUSE (NERY) REGARDING D/C NEEDS AND PLANS. SPOUSE STATED SHE JUST D/C FROM HOSPITAL ON THE . SPOUSE STATED THEY HAVE A RAMP TO ENTER HOME AND NO STAIRS INSIDE. PATIENT DID NOT WALK ONCE SHE GOT HOME-WAS TRANSFERRED TO HER LIFT CHAIR AND STATED SHE WOULD NEED TO GO TO BED AFTER SHE WATCHED A CERTAIN SHOW. SPOUSE HAD TO CALL NEIGHBORS TO HELP HER GET TO BED (PATIENT COULD NOT GET UP FROM CHAIR). PATIENT WAS NOT ALERT NEXT MORNING AND WAS ADMITTED TO HOSPITAL. PATIENT HAS A WALKER, WHEELCHAIR, BS COMMODE, AND OXYGEN (NEW) AT HOME. SPOUSE AGREED TO SEND PATIENT TO [facility] ONCE READY FOR D/C AND HE SIGNED THE PILY FORM. PATIENT IS CURRENT WITH [facility]. PATIENT DID HAVE AREA AGENCY ON AGING FEW DAYS WEEK OUT OF [place]. CM WILL CONTINUE TO FOLLOW PATIENT WITH D/C NEEDS AND PLANS. PCP DR. ALESSANDRO LOPEZ MKEA- [phone] NERY (SPOUSE) [phone] Classroom Technology Coach: Heidi Avila
[2017-07-11 10:32] LABS: BASOPHILS 0.4 % (0-2); HEMOGLOBIN 12.1 g/dL (12-16); IMMATURE GRANULOCYTES 0.1 % (0-5); LYMPHOCYTES 20.6 % (15-50); MCH 28.8 pg (26.0-34.0); MCHC 31.8 g/dL (31.0-37.0); MCV 90.5 fL (80.0-100.0); MEAN PLATELET VOLUME 11.3 fL (7.4-10.4); MONOCYTES 12.3 % (2-11); NEUTROPHILS 64.6 % (40-80); PLATELET COUNT 362 10x3/uL (130-400); RDW 14.2 % (11.5-14.5); WBC 10.3 10x3/uL (4.8-10.8)
[2017-07-11 10:49] LABS: ALBUMIN 2.8 g/dL (3.4-5.0); ALKALINE PHOSPHATASE 43 U/L (46-116); ALT (SGPT) 17 U/L (10-68); CALC OSMOLALITY 277 mosm/kg (275-300); CALCIUM 8.9 mg/dL (8.5-10.1); CARBON DIOXIDE 30.1 mmol/L (21.0-32.0); CHLORIDE - SERUM 103 mmol/L (98-107); CREATININE - SERUM 0.7 mg/dL (0.6-1.3); GLUCOSE 77 mg/dL (74-106); POTASSIUM - SERUM 4.4 mmol/L (3.5-5.1); PROTEIN - SERUM 6.9 g/dL (6.4-8.2); SODIUM 141 mmol/L (136-145); eGFR NON AFRICAN AMERICAN 84 mL/min (90-120)
[2017-07-11 10:50] LABS: UREA NITROGEN 7 mg/dL (7-18)
--- NOTE | 2017-07-11 12:02 | NUR ---
Rehab Note- Have started the PreAuth process. Awaiting wound care eval and will fax clinicals into [employer] for possible acute rehab stay/ Will continue to follow the patient at this time. Thank you for this referral! Roz Gramajo Rn Clinical Liaison, [facility] Rehab
--- NOTE | 2017-07-11 13:39 | NUR ---
Wound care consult: Pt has two pressure injuries on her right hip. Upper most wound is a stage 2 pressure injury. It measures 1cm x 1.5cm x 0.2cm. Wound bed is pink and edges are dry and peeling. Lower wound is a stage 3 pressure injury. It measures 2cm x 5cm x 0.3cm The wound bed is yellow. There is no drainage seen. Both are covered with Mepilex border to protect. Wound care will continue monitoring.
[2017-07-11 13:53] VITALS: Ht 152.4 cm; Wt 68.0 kg
--- NOTE | 2017-07-11 14:43 | NUR ---
PT RESTING IN BED WITH NO DISTRESS NOTED REFUSES TO ACKNOWLEDGE THIS NURSE OR NURSE TECH ALSO WOULD NOT OPEN EYES AND ACKNOWLEDGE DOUBLE REAMER OPERATOR WHEN HE WAS HERE. HOWEVER ROLLED AND TURNED FOR WOUND CARE NURSE AND ANSWERED QUESTIONS.
[2017-07-11 16:42] VITALS: BP 186/88
--- NOTE | 2017-07-11 17:40 | NUR ---
OT NOTE: PT COMPLETED SIMPLE HYGIENE TASK WITH MIN A. THANK YOU, CHARLES BERGERON/Carmen
--- NOTE | 2017-07-11 18:45 | NUR ---
PT TOOK LIGIA FOR COMPOUND SPECIALIST EARLIER WELL HUEY.
[2017-07-11 20:00] VITALS: BP 174/66
--- NOTE | 2017-07-11 22:01 | NUR ---
REC'D LYING IN BED. ALERT AND ORIENTED X3. NO DISTRESS NOTED. DENIED PAIN AT THIS TIME. DENIED FURTHER NEEDS AT THIS TIME. INSTRUCTED TO CALL IF NEEDED ANYTHING. VERBALIZED UNDERSTANDING. BED LOW, LOCKED, CALL LIGHT IN REACH. WILL CONT TO MONITOR.
[2017-07-12] VITALS: BP 151/56
--- NOTE | 2017-07-12 02:00 | NUR ---
PATIENT RESTING WITH EYES CLOSED AND NO VISIBLE SIGNS OF DISTRESS. BED IN LOWEST POSITION AND CALL LIGHT WITHIN REACH.
[2017-07-12 04:00] VITALS: BP 173/90
[2017-07-12 06:15] LABS: BASOPHILS 0.4 % (0-2); EOSINOPHILS 3.1 % (0-7); HEMATOCRIT 36.6 % (36.0-48.0); HEMOGLOBIN 11.5 g/dL (12-16); IMMATURE GRANULOCYTES 0.2 % (0-5); LYMPHOCYTES 22.7 % (15-50); MCH 28.6 pg (26.0-34.0); MCHC 31.4 g/dL (31.0-37.0); MEAN PLATELET VOLUME 11.6 fL (7.4-10.4); MONOCYTES 11.8 % (2-11); NEUTROPHILS 61.8 % (40-80); PLATELET COUNT 362 10x3/uL (130-400); RBC 4.02 10x6/uL (4.00-5.40); RDW 14.2 % (11.5-14.5); WBC 9.9 10x3/uL (4.8-10.8)
[2017-07-12 06:44] LABS: ALBUMIN 2.6 g/dL (3.4-5.0); ALKALINE PHOSPHATASE 42 U/L (46-116); ALT (SGPT) 13 U/L (10-68); CALCIUM 8.4 mg/dL (8.5-10.1); CARBON DIOXIDE 22.8 mmol/L (21.0-32.0); CHLORIDE - SERUM 102 mmol/L (98-107); SODIUM 140 mmol/L (136-145); UREA NITROGEN 7 mg/dL (7-18)
[2017-07-12 06:47] LABS: CALC OSMOLALITY 274 mosm/kg (275-300); CREATININE - SERUM 0.5 mg/dL (0.6-1.3); GLUCOSE 60 mg/dL (74-106); POTASSIUM - SERUM 3.7 mmol/L (3.5-5.1); eGFR NON AFRICAN AMERICAN > 90 mL/min (90-120)
--- NOTE | 2017-07-12 08:05 | NUR ---
PT SITTING UP IN BED WITH NO VISABLE SIGNS OF PAIN OR DISCOMFORT AT THIS TIME. BED IN LOW POSITION AND CALL LIGHT WITHIN REACH, WILL CONTINUE TO MONITOR.
[2017-07-12 08:54] VITALS: BP 162/75
--- NOTE | 2017-07-12 16:19 | NUR ---
Rehab Note- Denial from [facility] received for acute inpatient rehab stay. A peer to peer can be set up prior to 07/13/17 by calling [phone] for the medical or surgical instrument maker. Case #[id number]. Hand delivered copy of denial to DEISI Gordon and an extra copy for the patient's family due to the patient is having increased confusion at this time. Thank you for this referral! Roz Gramajo RN Clinical Liaison, [facility] Rehab
--- NOTE | 2017-07-12 17:04 | NUR ---
OT NOTE: PT EXTREMELY LETHARGIC IN AM, HOWEVER, ATTEMPTED AGAIN IN PM, AND PT WAS AGITATED. THIS PT WAS SEEN BY THERAPIST SEVERAL WEEKS AGO, AND WAS PERFORMING AT MIN ASSIST LEVEL. HOWEVER, AT THIS TIME, SHE IS RESISTANT TO ALL ADL TASKS. ATTEMPTED UE AROM EXS WITH SIGNIFICANT DIFFICULTY. DIFFICULT TO REDIRECT, BUT UPON REDIRECTION, SHE WOULD STAY ON TASK FOR ONLY A SHORT TIME, THEN BECAME AGITATED AGAIN... EHSAN WHEN ATTEMPTING GROOMING AND FEEDING TASK
[2017-07-12 20:00] VITALS: BP 174/95
--- NOTE | 2017-07-13 00:19 | NUR ---
PT GLUCOSE WAS 56 REFUSED TO TAKE INTANT GLUC, RN RODERICK ASSISTED IN GETTING PT TO AGREE TO OJ AND JOSEMANUEL VARGAS, PT IS NOW RESTING EYES CLOSED EVEN RISE AND FALL OF CHEST NO SIGNS OF DISTRESS
--- NOTE | 2017-07-13 03:02 | NUR ---
PT ACCIDENTALLY PULLED IV OUT. CATHETER TIP INTACT. NEW IV SITED TO LEFT WRIST. 22G. 1 ATTEMPT. GOOD BLOOD RETURN. FLUSHES W/O DIFFICULTY. FLUIDS HOOKED BACK UP PER ORDER. PT TOLERATED WELL. AID IN ROOM FINISHING IN BATH.
--- NOTE | 2017-07-13 03:27 | NUR ---
PT BP IS 179/95, PT REFUESED CARDIENO AND LUCHO EARLIER. DOUBLE CHECKED WITH CHARGE NURSE IN REGARDS TO CARDIZEM PT HR AT 113 WELL
[2017-07-13 04:00] VITALS: BP 179/95
--- NOTE | 2017-07-13 06:10 | NUR ---
PT REFUSED TO LET LAB GET HER BLOOD WORK, REFUSED TO LET ME DO A FINGER STICK AND WOULD ONLY TAKE HER SYNTHROID THIS MORNING
--- NOTE | 2017-07-13 07:32 | NUR ---
SLEEPING, NO DISTRESS NOTED, BREATHING EVEN UNLABORED, CALL LIGHT IN REACH, BED LOWEST POSITION, WILL CONTINUE TO MONITOR
--- NOTE | 2017-07-13 08:00 | NUR ---
PT WAS LETHARGIC THIS AM, SHE REFUSED MEDS AND LABS, I TOOK HER GLUCOSE IT WAS 79, I GAVE 1/2 AMP D50, WILL CONTINUE TO MONITOR
[2017-07-13 08:53] VITALS: BP 182/103
--- NOTE | 2017-07-13 13:00 | NUR ---
CHECKED WITH TELEMETRY PT HAS RAN ABOUT 88 SR ON MONITORS ALL DAY, NO RUNS OF AFIB
[2017-07-13 13:21] LABS: BASOPHILS 0.4 % (0-2); EOSINOPHILS 2.6 % (0-7); HEMATOCRIT 39.7 % (36.0-48.0); HEMOGLOBIN 12.7 g/dL (12-16); IMMATURE GRANULOCYTES 0.2 % (0-5); LYMPHOCYTES 20.5 % (15-50); MCH 28.6 pg (26.0-34.0); MCV 89.4 fL (80.0-100.0); MEAN PLATELET VOLUME 11.1 fL (7.4-10.4); MONOCYTES 9.9 % (2-11); NEUTROPHILS 66.4 % (40-80); PLATELET COUNT 365 10x3/uL (130-400); RBC 4.44 10x6/uL (4.00-5.40); RDW 14.1 % (11.5-14.5); WBC 9.3 10x3/uL (4.8-10.8)
--- NOTE | 2017-07-13 13:59 | NUR ---
OT NOTE: PT REMAINS UNRESPONSIVE; PT WILL NOT ANSWER QUESIONS, HOWEVER, REFUSES STRAW WHEN PLACED AT MOUTH; WILL NOT ACTIVELY ASSIST WITH ROM EXS
[2017-07-13 14:05] LABS: ALBUMIN 2.8 g/dL (3.4-5.0); ALKALINE PHOSPHATASE 47 U/L (46-116); ALT (SGPT) 14 U/L (10-68); BILIRUBIN - TOTAL 0.35 mg/dL (0.2-1.3); CALCIUM 8.1 mg/dL (8.5-10.1); CARBON DIOXIDE 23.6 mmol/L (21.0-32.0); CHLORIDE - SERUM 103 mmol/L (98-107); CREATININE - SERUM 0.5 mg/dL (0.6-1.3); PROTEIN - SERUM 6.8 g/dL (6.4-8.2); SODIUM 138 mmol/L (136-145); eGFR NON AFRICAN AMERICAN > 90 mL/min (90-120)
[2017-07-13 14:15] LABS: CALC OSMOLALITY 273 mosm/kg (275-300); GLUCOSE 118 mg/dL (74-106); UREA NITROGEN 4 mg/dL (7-18)
--- NOTE | 2017-07-13 15:09 | NUR ---
NUTRITION MONITORING & EVAL CHART REVIEWED. PT VISIT. DID NOT ACKNOWLEDGE MY PRESENCE. NO PO INTAKE RECENT MEALS. WILL CONTINUE TO MONITOR INTAKE, PT PROGRESS. MAY REQUIRE TEMPORARY NUTRITION SUPPORT IF CURRENT NUTRITIONAL INTAKE CONTINUES. RD FOLLOWING
[2017-07-13 16:35] VITALS: BP 136/79
--- NOTE | 2017-07-13 17:13 | NUR ---
OT NOTE: PT COMPLETED SIMPLE GROOMING AND HYGIENE TASKS WITH BROOK Gramajo THANK YOU, CHARLES BERGERON/Carmen
--- NOTE | 2017-07-13 19:27 | NUR ---
PT IS LYING IN BED WITH EYES CLOSED, EVEN RISE AND FALL OF CHEST NO SIGNS OF DISTRESS, PT IS CONFUSED, REFUSED TO TAKE MEDS, ABLE TO DISOLVE IN WATER AND ADMINISTER THROUGH SYRINGE IN PT MOUTH. BED IN LOW POSITION, CALL LIGHT IS IN REACH. CONTINUE WITH PLAN OF CARE
[2017-07-13 20:00] VITALS: BP 186/83
[2017-07-14] VITALS: BP 157/60
--- NOTE | 2017-07-14 02:00 | NUR ---
PT IN BED WITH NO DISTRESS. RESPIRATIONS EVEN AND UNLABORED. SIDE RAILS X 2. BED LOW. CALL LIGHT IN REACH.
[2017-07-14 04:00] VITALS: BP 177/84
--- NOTE | 2017-07-14 05:50 | NUR ---
PT REFUSED TO LET LAB TAKE BLOODWORK. YELLED AT ME TO LEAVE WHEN I WENT TO HANG FLUIDS PT DIS TAKE BP MEDS YESTERDAY
--- NOTE | 2017-07-14 07:00 | NUR ---
REPORT RECIEVED ASSUMED CARE. PATIENT IN BED WITH IV INTACT. NO COMPLAINTS. JAMES INTACT. CALL LIGHT WITHIN REACH.
[2017-07-14 08:55] VITALS: BP 132/79
--- NOTE | 2017-07-14 09:30 | NUR ---
PATIENT ALLOWED PHELPO TO DRAW LABS AT THIS TIME. NO COMPLAINTS OR CONFUSION AT THIS TIME. CALL LIGHT WITHIN REACH.
[2017-07-14 09:45] LABS: BASOPHILS 0.2 % (0-2); EOSINOPHILS 1.4 % (0-7); HEMATOCRIT 37.9 % (36.0-48.0); HEMOGLOBIN 12.3 g/dL (12-16); IMMATURE GRANULOCYTES 0.2 % (0-5); LYMPHOCYTES 15.5 % (15-50); MCH 28.6 pg (26.0-34.0); MCHC 32.5 g/dL (31.0-37.0); MCV 88.1 fL (80.0-100.0); MEAN PLATELET VOLUME 11.5 fL (7.4-10.4); MONOCYTES 9.9 % (2-11); NEUTROPHILS 72.8 % (40-80); PLATELET COUNT 365 10x3/uL (130-400); RDW 14.1 % (11.5-14.5); WBC 10.5 10x3/uL (4.8-10.8)
[2017-07-14 10:01] LABS: ALBUMIN 2.4 g/dL (3.4-5.0); ALKALINE PHOSPHATASE 42 U/L (46-116); ALT (SGPT) 12 U/L (10-68); BILIRUBIN - TOTAL 0.32 mg/dL (0.2-1.3); CALC OSMOLALITY 280 mosm/kg (275-300); CALCIUM 7.7 mg/dL (8.5-10.1); CARBON DIOXIDE 26.7 mmol/L (21.0-32.0); CHLORIDE - SERUM 107 mmol/L (98-107); CREATININE - SERUM 0.6 mg/dL (0.6-1.3); GLUCOSE 188 mg/dL (74-106); MAGNESIUM - SERUM 1.3 mg/dL (1.8-2.4); PROTEIN - SERUM 6.5 g/dL (6.4-8.2); SODIUM 140 mmol/L (136-145); UREA NITROGEN 3 mg/dL (7-18); eGFR NON AFRICAN AMERICAN > 90 mL/min (90-120)
[2017-07-14 10:02] LABS: POTASSIUM - SERUM 2.5 mmol/L (3.5-5.1)
--- NOTE | 2017-07-14 12:20 | NUR ---
PATIENT CONFUSED AT THIS TIME. TALKING ABOUT COLORS AND THINGS THAT DO NOT MAKE SENSE. IV INTACT. JAMES INTACT. CALL LIGHT WITHIN REACH.
[2017-07-14 12:23] VITALS: BP 97/65
[2017-07-14 16:49] VITALS: BP 126/42
--- NOTE | 2017-07-14 18:45 | NUR ---
PATIENT IN BED WITH IV INTACT. NO COMPLAINTS. CALL LIGHT WITHIN REACH.
--- NOTE | 2017-07-14 18:52 | NUR ---
OT NOTE: PT WAS ALERT IN AM; EXPLAINED TO PT THAT THERAPIST WOULD BE BACK LATER TO PERFORM EXS. PT STATED " OH YOURE FROM THERAPY..LEONEL BEEN WAITING FOR THIS" HOWEVER, IN PM, PT RESISTANT TO EXS; REFUSED TO PERFORM; REFUSED SITTING UP ON EDGE OF BED. SIGNIFICANT CHANGE FROM AM
[2017-07-14 20:00] VITALS: BP 165/84
--- NOTE | 2017-07-14 20:48 | NUR ---
HOSPICE NURSE HERE IV DC'D LIFENET HERE. TRANSFERRING TO [facility] VIA STRETCHER.
--- NOTE | 2017-07-14 21:54 | NUR ---
2000)REC'D IN BED.SITTING UPRIGHT WATCHING TV. REMAINS CONFUSED AND DISORIENTED TO PLACE.TIME, SITUATION.NEURO STATUS WNL.WILL CONTINUE TO MONITOR FOR ANY CHGES AND FOLLOW CURRENT PLAN OF CARE.
[2017-07-15] VITALS: BP 162/69
[2017-07-15 04:00] VITALS: BP 143/68
--- NOTE | 2017-07-15 04:20 | NUR ---
RN NOTE: PT RESTING QUIETLY IN SUPINE POSITION WITY EYES CLOSED AND UNLABORED BREATHING. TELEMETRY IN USE. IV IN LEFT FA PATENT WITH D5-NS INFUSING AT 10 ML/HR. WILL CONTINUE TO MONITOR FOR NEEDS.
[2017-07-15 06:01] LABS: BASOPHILS 0.2 % (0-2); EOSINOPHILS 3.2 % (0-7); HEMATOCRIT 34.6 % (36.0-48.0); HEMOGLOBIN 11.2 g/dL (12-16); IMMATURE GRANULOCYTES 0.2 % (0-5); LYMPHOCYTES 22.7 % (15-50); MCH 28.5 pg (26.0-34.0); MCHC 32.4 g/dL (31.0-37.0); MEAN PLATELET VOLUME 11.6 fL (7.4-10.4); MONOCYTES 12.4 % (2-11); NEUTROPHILS 61.3 % (40-80); PLATELET COUNT 324 10x3/uL (130-400); RBC 3.93 10x6/uL (4.00-5.40); RDW 14.1 % (11.5-14.5); WBC 9.4 10x3/uL (4.8-10.8)
--- NOTE | 2017-07-15 07:00 | NUR ---
REPORT RECIEVED ASSUMED CARE. PATIENT IN BED WITH IV INTACT. NO COMPLAINTS. CALL LIGHT WITHIN REACH. BA ON.
--- NOTE | 2017-07-15 08:45 | NUR ---
ASSESSMENT COMPLETE, VS STABLE. NO COMPLAINTS. IV INTACT. CALL LIGHT WITHIN REACH.
[2017-07-15 08:50] VITALS: BP 133/68
--- NOTE | 2017-07-15 12:30 | NUR ---
PATIENT K+ AND MAG REDRAWN. MAG DONE INFUSING AT 1120.
[2017-07-15 12:33] VITALS: BP 153/90
[2017-07-15 13:03] LABS: ALBUMIN 2.4 g/dL (3.4-5.0); ALKALINE PHOSPHATASE 41 U/L (46-116); ALT (SGPT) 12 U/L (10-68); BILIRUBIN - TOTAL 0.35 mg/dL (0.2-1.3); CALCIUM 7.5 mg/dL (8.5-10.1); CARBON DIOXIDE 27.3 mmol/L (21.0-32.0); CHLORIDE - SERUM 107 mmol/L (98-107); CREATININE - SERUM 0.6 mg/dL (0.6-1.3); PROTEIN - SERUM 6.5 g/dL (6.4-8.2); SODIUM 138 mmol/L (136-145); eGFR NON AFRICAN AMERICAN > 90 mL/min (90-120)
[2017-07-15 13:04] LABS: CALC OSMOLALITY 272 mosm/kg (275-300); GLUCOSE 122 mg/dL (74-106); MAGNESIUM - SERUM 2.8 mg/dL (1.8-2.4); UREA NITROGEN 2 mg/dL (7-18)
[2017-07-15] MEDS ORDERED: NYSTATIN1 PWD TOPICAL (13:39)
[2017-07-15] MEDS ORDERED: NYSTATIN OINTME15 GM TOPICAL (13:39)
--- NOTE | 2017-07-15 14:01 | NUR ---
OT NOTE: PT DOING BETTER TODAY. PT WAS VERY LABILE. SHE WAS ALERT AND ANSWERED QUESTIONS APPROPRIATLY. PT INITIALLY RESISTANT TO SIT UP ON EDGE OF BED, HOWEVER, AFTER ENCOURAGEMENT, SHE DID PERFORM, REQUIRING MAX ASSIST FOR SUPINE TO SIT AND MIN/CGA TO MAINTAIN STATIC SITTING ON EDGE OF BED. PT ABLE TO DRINK SEVERAL SIPS OF WATER, PROBABLY ABOUT 4 OZ, BUT RESISTANT TO ANY FOOD. PT IMPLIED THAT IF SHE DID NOT GET BETTER AND STAY BETTER THIS TIME, THAT SHE DID NOT WANT TO CONTINUE LIVING. EXPLAINED TO PT THAT IT MAY TAKE A WHILE TO IMPROVE, BUT FOCUSED ON THE FACT THAT SHE WAS MUCH BETTER TODAY, THAN SHE WAS ON ALL PREVIOUS DAYS.
--- NOTE | 2017-07-15 15:59 | NUR ---
CM REASSESSMENT NOTE: PATIENT IS DISCHARGING TO [facility] TODAY
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
[2017-07-15 16:35] VITALS: BP 116/89
--- NOTE | 2017-07-15 18:22 | NUR ---
OT NOTE: PT COMPLETED GROOMING AND HYGIENE TASKS WITH MOD A. PT COMPLETED AAROM EXERCISES FOR INCREASED I WITH BED MOB. PT COMPLETED BED MOB WITH MOD A. THANK YOU, RHONDA BERGERON
--- NOTE | 2017-07-15 18:30 | NUR ---
PATIENT JAMES REMOVED AT THIS TIME. NOAM GRAY IN IA THAT I WOULD REMOVE IT BEFORE SHE DC.
--- NOTE | 2017-07-15 18:45 | NUR ---
ESCORTED TO [facility] BY CNAS WITH PERSONAL BELONGINGS VIA BED. NOTIFIED AT THIS TIME.
--- NOTE | 2017-07-15 19:00 | NUR ---
TRIED TO CALL NERY, PATIENTS TO LET HIM KNOW PATIENT WAS MOVED TO NE. CALL LIGHT WITHIN REACH.
[2017-07-15 20:00] VITALS: BP 131/76
== END 2017-07-15 20:25 | DRG 640 ==
LOC: D.ER 15:20 → D.MS 18:04
PROVIDERS: Emergency Medicine; Physician Assistant Medical; ADMIT Family Medicine
PROC: 0T9B70Z Drainage of Bladder with Drainage Device, Via Natural or Artificial Opening (ICD-10-PCS; principal; 2017-07-09)
DX: E16.2 Hypoglycemia, unspecified (principal); G93.49 Other encephalopathy; R53.2 Functional quadriplegia; I47.1 Supraventricular tachycardia; R44.3 Hallucinations, unspecified; F03.91 Unspecified dementia, unspecified severity, with behavioral disturbance; R53.1 Weakness; I48.91 Unspecified atrial fibrillation; I25.10 Atherosclerotic heart disease of native coronary artery without angina pectoris; I10 Essential (primary) hypertension; E78.5 Hyperlipidemia, unspecified; E03.9 Hypothyroidism, unspecified; I50.9 Heart failure, unspecified; F41.8 Other specified anxiety disorders; E83.42 Hypomagnesemia; E83.51 Hypocalcemia; R41.0 Disorientation, unspecified

== ENCOUNTER 2017-07-15 17:03 | Inpatient (IN) | payer MEDICARE, MEDICAID ==
[~2017-07-15] VITALS: Ht 152.4 cm; Wt 56.1 kg
[~2017-07-15 17:03] MED LIST changes: +NYSTATIN1 PWD TOPICAL
[2017-07-15 20:44] VITALS: BP 149/115
--- NOTE | 2017-07-16 00:56 | NUR ---
Patient arrived from [facility] via streacher, accompanied by hospital staff, called for consent to treat, Code word "Leroy" , VSS, physician aware of admit, patient is alert and very confused, Code status per is DNR, will continue to monitor.
[2017-07-16 02:43] VITALS: BP 153/90; BMI 29.3
[2017-07-16 08:07] VITALS: BP 167/85
[2017-07-16 09:20] LABS: BASOPHILS 0.3 % (0-2); EOSINOPHILS 2.3 % (0-7); HEMATOCRIT 40.8 % (36.0-48.0); HEMOGLOBIN 12.9 g/dL (12-16); IMMATURE GRANULOCYTES 0.4 % (0-5); LYMPHOCYTES 24.8 % (15-50); MCH 28.7 pg (26.0-34.0); MCHC 31.6 g/dL (31.0-37.0); MEAN PLATELET VOLUME 11.6 fL (7.4-10.4); MONOCYTES 9.5 % (2-11); NEUTROPHILS 62.7 % (40-80); PLATELET COUNT 261 10x3/uL (130-400); RBC 4.49 10x6/uL (4.00-5.40); RDW 14.9 % (11.5-14.5); WBC 11.4 10x3/uL (4.8-10.8)
[2017-07-16 09:26] LABS: MCV 90.9 fL (80.0-100.0)
--- NOTE | 2017-07-16 09:30 | NUR ---
B) PATIENT IS MAKING BIZARRE STATEMENTS THIS AM, SHE IS SAYING SHE DOES NOT WANT TO TAKE HER PLAVIX BECAUSE HER DAUGHTER IS HAVING HEART SURGERY AND SHE MAY DONATE HER HEART TO HER, HAD TO REDIRECT AND REORIENT PATIENT ABOUT THE LIVING NOT BEING ABLE TO DONATE THEIR ORGANS. PATIENT SAID "OH, OK" PATIENT IS HAVING SOME DELUSIONS AND PARANOIA TODAY. SHE WANTED TO KNOW ALL HER MEDS, WHICH IS OK, BUT THEN SHE BEGAN SAYING THAT "EVERYONE IS OUT TO GET HER AND HE IS NOT SAFE" SHE SAYS THAT SINCE SHE WILLED ALL HER BELONGINGS TO HER DAUGHTER AND THEY ARE NOT SAFE. PATIENT CAN STAND AND ASSIST TO TRANSFER. I) PROVIDE PRESCRIBED MEDS. R) PATIENT IS COMPLIANT WITH MEDS, SHE ASKED FOR ME TO CRUSH THEM, BUT THEN DID NOT LIKE THEM CRUSHED IN VANILLA PUDDING. P) CONTINUE POC.
[2017-07-16 10:00] LABS: HEMOGLOBIN A1C 6.1 % (4.8-6.0)
[2017-07-16 10:02] LABS: ALBUMIN 2.8 g/dL (3.4-5.0); ALKALINE PHOSPHATASE 54 U/L (46-116); ALT (SGPT) 10 U/L (10-68); BILIRUBIN - TOTAL 0.48 mg/dL (0.2-1.3); CALC OSMOLALITY 275 mosm/kg (275-300); CARBON DIOXIDE 23.3 mmol/L (21.0-32.0); CHLORIDE - SERUM 105 mmol/L (98-107); CHOL - HDL RATIO 2.8 ratio (2.3-4.1); CHOLESTEROL, TOTAL 161 mg/dL (0-200); CREATININE - SERUM 0.7 mg/dL (0.6-1.3); GLUCOSE 151 mg/dL (74-106); HDL CHOLESTEROL 58 mg/dL (32-96); LDL CHOLESTEROL 74 mg/dL (0-100); LDL-HDL RATIO 1.3 ratio (1.5-3.5); PROTEIN - SERUM 7.3 g/dL (6.4-8.2); SODIUM 138 mmol/L (136-145); THYROID STIMULATING HORMONE 14.93 uIU/mL (0.36-3.74); TRIGLYCERIDE 148 mg/dL (30-200); eGFR NON AFRICAN AMERICAN 84 mL/min (90-120)
[2017-07-16 10:03] LABS: UREA NITROGEN 4 mg/dL (7-18)
[2017-07-16 10:28] VITALS: BMI 29.2; BMI 30.1
[2017-07-16 19:00] VITALS: BP 107/51
--- NOTE | 2017-07-17 02:28 | NUR ---
B) Patient alert and oriented, calm and cooperative, no behaviors or unusal statements noted, I) Administered schduled medications, monitored for behaviors, R) Medication compliant, friendly and pleasant, P) Continue plan of care.
[2017-07-17 07:00] VITALS: BP 133/47
--- NOTE | 2017-07-17 13:37 | NUR ---
B) PATIENT IS AWAKE AND ALERT, CALM AND COOPERATIVE WITH CARE AND ASSESSMENT, ISOLATING HERSELF IN DINING ROOM AWAY FROM PEERS AND STAFF. NO BEHAVIORS NOTED, JUIST QUIET AND COMPLAINING OF BEING COLD. I) ADMINISTERED PRESCRIBED MEDICATIONS. VSS. R) COMPLIANT WITH MEDICATIONS. REDIRECT AND REORIENT NEEDED. P) MAINTAIN FALL PRECAUTIONS AND CONTINUE PLAN OF CARE.
[2017-07-17 19:30] VITALS: BP 162/74
--- NOTE | 2017-07-17 21:35 | NUR ---
RECEIVED IN HALLWAY. SITTING IN A WHEELCHAIR WITH PEERS AT HER SIDE. NOT SOCIALIZING AT THIS TIME. CONFUSED. CALM AND COOPERATIVE WITH CARE AND ASSESSMENTS. REDIRECT AND REORIENT NEEDED. CONTINUES TO SIT QUIETLY IN WHEELCAHIR AT NURSES STATION. CONTINUE PLAN OF CARE
--- NOTE | 2017-07-17 23:56 | NUR ---
Given Tylenol 650mg po PRN for complaints of right hand pain and generalized aches and pains. States she usually takes Tylenol every night at home to alleviate pain and promote sleep. Will monitor for effectiveness.
--- NOTE | 2017-07-18 00:31 | NUR ---
Eyes closed, respirations easy and regular, deemed to be sleeping, PRN deemed effective.
[2017-07-18 07:00] VITALS: BP 194/65
--- NOTE | 2017-07-18 13:31 | PSY ---
PATIENT NAME:SOWMYA PARSON APRIL MEDICAL RECORD: [id number] : 32 LOCATION:[facility]8 ADMISSION DATE: 07/15/17 ACCOUNT: [id number] PSYCHIATRIC EVALUATION DATE OF EVALUATION: 07/16/17 Psychiatric Evaluation IDENTIFYING DATA: The patient is 87 years old and is admitted to the hospital on a voluntary basis. CHIEF COMPLAINT: Confusion. HISTORY OF PRESENT ILLNESS: The patient had 2 hospitalizations on the medical floor recently. Both of them had associated mental status changes and psychotic symptoms and agitation associated with the admission. The patient was initially referred to rehabilitation, but she and her decided not to go there. She quickly we presented back to the hospital with confusion and agitation. Currently, the patient has no recollection of these events. She cries some, says that she has to whisper to me because she does not want anyone to overhear the things that she is saying to me. There is no one around that could hear. We are speaking privately. She tells me that she is very upset because her youngest son hates her because of some changes in her will. She makes a number of loose and disorganized statements that when I tried to follow up or correct her about them, she simply continues to make statements that are not connected. PAST MEDICAL HISTORY: Significant for recent pneumonia, angioplasty, congestive heart failure, atrial fibrillation, syncope, peripheral vascular disease. The patient has also had a history of 2 MRIs that show no acute change, both done recently. PAST PSYCHIATRIC HISTORY: Negative for psychiatric disease by her statement, but I find this to be questionably reliable. FAMILY HISTORY: Unknown. Again, this comes from the patient. ALLERGIES: PENICILLIN, LISINOPRIL, AMLODIPINE, AND COZAAR. CURRENT MEDICATIONS: Include nystatin, Synthroid, Protonix, Singulair, Calcitrate, Bumex, aspirin, Zocor, fish oil, Plavix, Ventolin and Cardizem. SOCIAL HISTORY: The patient is . She has adult children. She denies a history of drug or alcohol abuse. MENTAL STATUS EXAMINATION: The patient is awake, alert and oriented to person only. Her mood is flat. Her affect is constricted. Thought processes are circumstantial. Memory, concentration and abstraction abilities are moderately impaired and she denies any intent to harm herself or others, as well as overt psychotic symptoms. ASSETS: Supportive family members. LIABILITIES: Limited insight. DIAGNOSTIC IMPRESSION: AXIS I: Vascular dementia. AXIS II: None. AXIS III: Cardiac arrhythmia, chronic obstructive pulmonary disease. AXIS IV: Moderate stressors. AXIS V: Global assessment of functioning is 30. PLAN: At this time, the patient is admitted to the hospital secondary to confusion, agitation and psychotic symptoms associated with a dementing illness. She will be evaluated fully and treated with both mood stabilizing and memory enhancing medications as deemed appropriate. Her long-term prognosis is guarded. Hopefully, she can return with enough functionality such that she can be transitioned back home with her family. TRANSINT:[id number] Voice Confirmation ID: [id number] DOCUMENT ID: [id number] OCTAVIO LOVETT MD at 1331 CC: [id number] DICTATION DATE: 07/16/17905 WOOD MILLER: 07/16/17 1229 ADM IN [place] [id number] [place] [id number]
[2017-07-18 20:00] VITALS: BP 154/68
--- NOTE | 2017-07-18 23:11 | NUR ---
RECEIVED IN BEDROOM. SITTING IN A WHEELCHAIR. CALM AND COOPERATIVE WITH CARE AND ASSESSMENTS. NO SIGNS OF AGGRESSION. ENCOURAGE TO EXPRESS NEEDS. RESTING EYES CLOSED AT THIS TIME. CONTINUE PLAN OF CARE
[2017-07-19 07:00] VITALS: BP 131/44
[2017-07-19 07:22] LABS: RAPID PLASMA REAGIN Non Reactive (Non Reactive); VITAMIN D 25 HYDROXY 38.2 ng/mL (30.0-100.0)
[2017-07-19 09:14] LABS: FOLATE (FOLIC ACID) - SERUM >20.0 ng/mL (>3.0)
--- NOTE | 2017-07-19 11:43 | NUR ---
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 PATIENT WAS ADMITTED FROM LONG TERM.
--- NOTE | 2017-07-19 13:20 | PN ---
PATIENT:SOWMYA PARSON APRIL MEDICAL RECORD: [id number] LOCATION:[facility]112 ADMISSION DATE: 07/15/17 PROGRESS NOTE DATE OF SERVICE: 07/18/2017 SUBJECTIVE: The patient's case was discussed with staff. She has no new complaint. OBJECTIVE: The patient is in good behavioral control. She has poor insight about her condition. ASSESSMENT: No change in diagnoses. PLAN: Current medicines and therapies have been reviewed and will be maintained. Long-term prognosis is guarded. She is still not eating adequately and at times is quite disorganized. TRANSINT:[id number] Voice Confirmation ID: [id number] DOCUMENT ID: [id number] OCTAVIO LOVETT MD at 1320 CC: [id number] DICTATION DATE: 07/18/17 1342 LOG ROPER: 07/18/17 1459 ADM IN [facility] [address] [place] [id number]
--- NOTE | 2017-07-19 14:25 | NUR ---
PATIENT PLEASANT. TOOK ALL MEDICATIONS WITHOUT DIFFICULTY. DRESSING CHANGED TO RIGHT BUTTOCKS STAGE II TO STAGE III PRESSURE ULCER.
[2017-07-19 19:15] VITALS: BP 154/82
--- NOTE | 2017-07-19 20:00 | NUR ---
RECEIVED IN DAYROOM. MOVING ABOUT IN WHEELCAHIR. SOCIALIZING WITH PEERS. CALM AND COOPERATIVE WITH CARE AND ASSESSMENTS. ENCOURAGE TO EXPRESS NEEDS. CONTINUES TO SOCIALIZE WITH PEERS. CONTINUE PLAN OF CARE
[2017-07-20 08:00] VITALS: BP 141/66
--- NOTE | 2017-07-20 10:03 | NUR ---
PT REQ AND REC'D PRN ATIVAN FOR ANXIETY LEVEL OF 10. PT DENIES FURTHER NEEDS. WCTM.
--- NOTE | 2017-07-20 13:36 | NUR ---
PT REQ AND REC'D PRN TYLENOL FOR NECK PAIN AND ATIVAN FOR ANXIETY. WCTM.
--- NOTE | 2017-07-20 19:37 | NUR ---
RECEIVED IN DAYROOM. SITTING IN A RECLINER. NOT SOCIALIZING AT THIS TIME. CALM AND COOPERATIVE WITH CARE AND ASSESSMENTS. ENCOURAGE TO EXPRESS NEEDS. REDIRECT NEEDED. CONTINUES TO SOCIALIZE WITH PEERS. CONTINUE PLAN OF CARE
[2017-07-20 20:18] VITALS: BP 212/96
--- NOTE | 2017-07-21 04:34 | PN ---
PATIENT:SOWMYA PARSON APRIL MEDICAL RECORD: [id number] LOCATION:[facility]112 ADMISSION DATE: 07/15/17 PROGRESS NOTE DATE OF SERVICE: 07/20/2017 SUBJECTIVE: No new complaint. OBJECTIVE: The patient relates in a pleasant fashion. She has not exhibited any severe aggressive or combative behavior. On exam, mood is euthymic. Affect is fairly bland and somewhat childlike. Speech is reasonably fluent. Content of thought focuses only on somatic concerns. Sensorium shows no change. ASSESSMENT: No change in diagnosis. PLAN: 1. The patient will be getting a wound consult due to staged II or III ulcer. 2. We will continue all current medications. 3. Continue supportive therapy. TRANSINT:[id number] Voice Confirmation ID: [id number] DOCUMENT ID: [id number] PREETHI HERNANDEZ III, MD at 0434 CC: [id number] DICTATION DATE: 07/20/17 1142 PEGGER DOBBY LOOMS: 07/20/17 1744 ADM IN [place] [id number] [place] [address]
--- NOTE | 2017-07-21 07:35 | NUR ---
B) PATIENT IS AWAKE AND ALERT, SHE IS PLEASANT. SHE HAS NOT BEEN TEARFUL TODAY AND HAS NOT MADE ANY DELUSIONAL STATEMENTS THIS AM. PATIENT IS ORIENTED TO SELF, BUT NOT PLACE, TIME OR SITUATION. I) PROVIDE PRESCRIBED MEDS. R) PATIENT IS COMPLIANT WITH MEDS AND UNIT MILIEU. P) CONTINUE POC.
[2017-07-21 08:00] VITALS: BP 160/80
--- NOTE | 2017-07-21 10:00 | NUR ---
PATIENT IS USING A CIERRA MAT D/T HER DECUB TO HER BUTTOCKS. PATIENT IS EATING AND DRINKING AND SHE IS ABLE TO SELF ADJUST AND STAND TO GET OFF OF HER BOTTOM.
--- NOTE | 2017-07-21 14:00 | NUR ---
Nutrition Follow Up: Chart reviewed. Pt is eating 42% meal avg on an [facility] soft diet. She is receiving Ensure TID. +BM 07/16/17 - no BM x 5 days. No new wt to assess. Meds noted including Bumex. Labs reviewed. Noted pt with stage II and stage III ulcers to R hip. Rec continue current diet, supplement regimen. RD following.
[2017-07-21 19:45] VITALS: BP 134/62
--- NOTE | 2017-07-22 03:22 | NUR ---
B) Patient alert and oriented, calm and cooperative with care and assessment, I( Administered schduled medications, PRN Tylenlo 650 mg PO given for head ache, at 20:39, redirected as needed, R) Medication compliant, resting quietly now, P) Continue plan of care, continue to monitor.
--- NOTE | 2017-07-22 05:41 | PN ---
PATIENT:SOWMYA PARSON APRIL MEDICAL RECORD: [id number] LOCATION:[facility] ADMISSION DATE: 07/15/17 PROGRESS NOTE DATE OF SERVICE: 07/21/2017 SUBJECTIVE: No new complaint. OBJECTIVE: Staff reports the patient continues to behave in a very childlike and petulant fashion. Wound care is monitoring the ulcer mentioned previously. The patient is tolerating medication. On exam, mood is somewhat irritable. Affect is very shallow and childish. Speech is somewhat tangential. Content of thought focuses on somatic complaints. Sensorium shows no change. ASSESSMENT: No change in diagnoses. PLAN: 1. Continue all current medications. 2. Continue supportive therapy. TRANSINT:[id number] Voice Confirmation ID: [id number] DOCUMENT ID: [id number] PREETHI HERNANDEZ III, MD at 0541 CC: [id number] DICTATION DATE: 07/21/17 1239 INSURANCE FOLLOW UP REP: 07/21/172023 ADM IN [facility] [address] [place] [address]
[2017-07-22 08:34] VITALS: BP 171/83
--- NOTE | 2017-07-22 10:16 | NUR ---
B) PATIENT IS AWAKE AND ALERT, SHE IS PLEASANT. SHE HAS SOME CONFUSION AND HAS NO INSIGHT INTO ILLNESS OR SITUATION. PATIENT IS ABLE TO AMBULATE WITH A WALKER AND SHE SELF PROPELS IN A W/C. SHE C/O HAVING A SCRATCHY VOICE THIS AM. HER RIGHT HAND REMAINS BRUISED. SHE HAS A DRESSING ON HER RIGHT BUTTOCKS D/T HER STAGE 2 AND 3 DECUB. I) PROVIDE PRESCRIBED MEDS. R) PATIENT IS COMPLIANT WITH MEDS AND UNIT MILIEU. P) CONTINUE POC.
--- NOTE | 2017-07-22 16:05 | NUR ---
LATE ENTRY FROM 07/21 SW MET WITH PT'S TO DISCUSS PT'S CARE AND DISCHARGE PLANS. PT'S , NERY, VERBALIZED UNDERSTANDING OF CONVERSATION.
[2017-07-22 20:03] VITALS: BP 162/51
--- NOTE | 2017-07-23 01:43 | NUR ---
B) Patient alert and oriented to self and being in a hospital, complained of loud TV in day room, otherwise calm and cooperative I) Administerd scheduled medications, bench mover patient away from the TV to a quieter area, monitored for behaviors and for safety. R) Medication compliant, pleasant and friendly to staff, P) Continue plan of care.
--- NOTE | 2017-07-23 01:53 | NUR ---
PRN Ativan 0.5 mg PO given for anxiety at 21:18.
[2017-07-23 15:57] VITALS: BP 103/81
--- NOTE | 2017-07-23 18:15 | NUR ---
PT RECEIVED IN ROOM IN WHEEL CHAIR. PT DENIES ANXIETY OR DEPRESSION BUT BOTH ARE APPARENT. PT DENIES PAIN. NO HALLUCINATIONS OR DELUSIONS ARE NOTED OR REPORTED. PT HAS BEEN VERY SOCIAL AND PLEASANT WITH BOTH STAFF AND PEERS. PT IS COOPERATIVE WITH STAFF AND IS COMPLIANT WITH MED'S AND CARE. NO AGGRESSION NOTED. PT HAS STAGE 2 ULCER ON RIGHT BUTTOCK AND SMALL SKIN TEAR ON RIGHT BUTTOCK- ULCER AND SKIN TEAR ARE CLEANED, PASTE APPLIED AND PADDED DRESSING IS APPLIED. PT SAID "IT ALREADY FELT BETTER". PT IS READJUSTED OR REPOSITIONED Q2H. SAFETY MEASURES ARE IMPLEMENTED. WILL CONTINUE TO MONITOR AND CONTINUE WITH PLAN OF CARE.
--- NOTE | 2017-07-23 18:42 | NUR ---
PT WAS GIVEN ATIVAN 0.5 MG PO AT 10:29 FOR ANXIETY. PT SAID THAT SHE WAS FEELING VERY ANXIOUS AND THAT SHE FELT LIKE SHE WAS GOING TO HAVE A PANIC ATTACK. PT WAS RELAXED AFTER PRN MED WAS GIVEN AND HAS BEEN SOCIAL WITH STAFF AND PEERS THROUGHOUT THE DAY.
[2017-07-23 19:30] VITALS: BP 133/60
--- NOTE | 2017-07-23 20:20 | PN ---
PATIENT:SOWMYA PARSON APRIL MEDICAL RECORD: [id number] LOCATION:[facility]112 ADMISSION DATE: 07/15/17 PROGRESS NOTE DATE OF SERVICE: 07/22/2017 SUBJECTIVE: No new complaint. OBJECTIVE: The patient has been doing reasonably well. Her indicates that he wishes to have her return home as soon as possible. She will need an assessment for her home health assistance. On exam, mood is euthymic. Affect is bland. Speech is somewhat terse. Content of thought is negative for overt psychosis. Sensorium unchanged. ASSESSMENT: No change in diagnosis. PLAN: 1. Continue all current medications. 2. Continue supportive therapy. TRANSINT:[id number] Voice Confirmation ID: [id number] DOCUMENT ID: [id number] PREETHI HERNANDEZ III, MD at 2020 CC: [id number] DICTATION DATE: 07/22/17 1138 WELFARE INTERVIEWER: 07/22/17 1855 ADM IN [facility] [address] [place] [address]
--- NOTE | 2017-07-24 03:33 | NUR ---
B) Patient alert and oriented to self and hospital, calm and pleasant, social with peers and staff, I) Administered scheduled medications, monitored for safety, R) Medication compliant, resting bed now, P) Continue plan of care.
[2017-07-24 07:00] VITALS: BP 142/71
--- NOTE | 2017-07-24 14:10 | NUR ---
ALERT AND ORIENTED X 3.DENIES ANY PAIN OR DISTRESS.HAS RED RASH UNDERNEATH BREAST AND ARMPIT,NYSTATIN UTILIZED.STAGE 2 TO RT BUTTOCK WITH DRESSING INTACT,CLEAN AND DRY.IS COMPLIANT WITH STAFF AND PEERS.COMPLIANT WITH MEDS.WILL CONTINUE WITH PLAN OF CARE,MONITOR FOR CHANGES AND SAFETY.
[2017-07-24 19:31] VITALS: BP 183/89
--- NOTE | 2017-07-24 20:23 | NUR ---
RECEIVED IN DAYROOM. SITTING IN RECLINER WITH PEERS AT HER SIDE. NOT SOCIALIZING. WATCHING TV. CALM AND COOPERATIVE WITH CARE AND ASSESSMENTS. ENCOURAGE TO EXPRESS NEEDS. CONTINUES TO SIT QUIETLY IN RECLINER. CONTINUE PLAN OF CARE
[2017-07-25 07:00] VITALS: BP 168/75
[2017-07-25 09:19] VITALS: Ht 152.4 cm; Wt 56.1 kg
--- NOTE | 2017-07-25 09:37 | NUR ---
CALM, COOPERATIVE. NO AGGRESSION NOTED. NO SIGNS OF PARANOIA OR DELUSIONS. REVIEWED DISCHARGE PLANS WITH THE PT. PT VERBALIZED UNDERSTANDING AND EXCITEMENT ABOUT GOING HOME. BELONGINGS PACKED AND ACCOUNTED FOR. DRESSING TO RIGHT BUTTOCKS CHANGED PRIOR TO DISCHARGE. HOME HEALTH ORDERED TO HELP WITH CARE ONCE PT IS DISCHARGED. MEDICATIONS SENT TO [facility].
--- NOTE | 2017-07-25 09:52 | PN ---
PATIENT:SOWMYA PARSON APRIL MEDICAL RECORD: [id number] LOCATION:[facility]112 ADMISSION DATE: 07/15/17 PROGRESS NOTE DATE OF SERVICE: 07/24/2017 SUBJECTIVE: The patient continues to request stronger medications. OBJECTIVE: The staff reports the patient remains somewhat drug seeking. Aside from that, she is pleasant and fairly easy to manage. Projected discharge for early next week. On exam, mood is for the most part euthymic. Affect is very shallow and childlike. Speech is somewhat repetitive. Content of thought focuses on somatic concerns. Sensorium shows no change. ASSESSMENT: No change in diagnosis. PLAN: 1. Continue current medications. 2. Continue supportive therapy. TRANSINT:[id number] Voice Confirmation ID: [id number] DOCUMENT ID: [id number] PREETHI HERNANDEZ III, MD at 0952 CC: [id number] DICTATION DATE: 07/24/17 0618 DINKEY SKINNER: 07/24/17 0846 ADM IN [place] [id number] [place] [address]
[2017-07-25] MEDS ORDERED: ARICEPT5 MG PO (09:58)
[2017-07-25] MEDS ORDERED: PERPHENAZINE2 MG PO (09:59)
[2017-07-25] MEDS ORDERED: LEVOXYL100 MCG PO (10:00)
--- NOTE | 2017-07-25 14:08 | PN ---
PATIENT:SOWMYA PARSON APRIL MEDICAL RECORD: [id number] LOCATION:[facility] ADMISSION DATE: 07/15/17 PROGRESS NOTE DATE OF SERVICE: 07/19/2017 SUBJECTIVE: The patient's case was discussed with staff. She has no new complaint. OBJECTIVE: The patient denies intent to harm herself or others. She generally tolerates her medicines well. Eye contact is fair. Concentration is fair. ASSESSMENT: No change in diagnoses. PLAN: Brief supportive and educational interventions were made. The patient will be followed by Dr. Opal Meyer for testing. I anticipate she is going to score in the severe range. She clearly is in need of 29-clzr-t-day supervision. TRANSINT:[id number] Voice Confirmation ID: [id number] DOCUMENT ID: [id number] OCTAVIO LOVETT MD at 1408 CC: [id number] DICTATION DATE: 07/19/17 1403 LEAD WAREHOUSE ASSOCIATE: 07/19/17 1654 DIS IN 07/25/17 [facility] [address] [place] [address]
--- NOTE | 2017-07-26 12:55 | PN ---
PATIENT:SOWMYA PARSON APRIL MEDICAL RECORD: [id number] LOCATION:[facility]112 ADMISSION DATE: 07/15/17 PROGRESS NOTE DATE OF SERVICE: 07/25/2017 SUBJECTIVE: The patient's case was discussed with staff. She has no new complaint. OBJECTIVE: The patient is significantly impaired cognitively. She had some testing by Dr. Opal Meyer that indicated she is functioning in the mild to moderate range of impairment with a score of 22/30. ASSESSMENT: No change in diagnoses. PLAN: Supportive and educational interventions were made. Snf prognosis is guarded. TRANSINT:[id number] Voice Confirmation ID: [id number] DOCUMENT ID: [id number] OCTAVIO LOVETT MD at 1255 CC: [id number] DICTATION DATE: 07/25/17 1427 SALESPERSON FURS: 07/25/17 1905 DIS IN 07/25/17 [facility] [address] [place] [address]
== END 2017-07-25 11:30 | disposition home health service (06) | DRG 885 ==
LOC: D.PSYCH 17:03
PROVIDERS: ADMIT Psychiatry & Neurology Psychiatry
DX: F22 Delusional disorders (principal); R53.2 Functional quadriplegia; F01.50 Vascular dementia, unspecified severity, without behavioral disturbance, psychotic disturbance, mood disturbance, and anxiety; J44.9 Chronic obstructive pulmonary disease, unspecified; I25.10 Atherosclerotic heart disease of native coronary artery without angina pectoris; E78.5 Hyperlipidemia, unspecified; I73.9 Peripheral vascular disease, unspecified; I11.0 Hypertensive heart disease with heart failure; I50.9 Heart failure, unspecified; F41.8 Other specified anxiety disorders; E87.5 Hyperkalemia; I48.2 Chronic atrial fibrillation; Z74.09 Other reduced mobility; M25.512 Pain in left shoulder; M25.511 Pain in right shoulder

== ENCOUNTER → 2018-01-06 09:47 | Outpatient (CLI) | payer MEDICARE, MEDICAID ==
[~2018-01-06] VITALS: Ht 149.9 cm; Wt 50.0 kg
--- NOTE | ~2018-01-06 | OP ---
PATIENT NAME: SOWMYA PARSON APRIL MEDICAL RECORD: [id number] :31 LOCATION:D.CAT ADMISSION DATE: SURGEON: ADDIS MUSA MD DATE OF OPERATION: 01/06/2018 PROCEDURES: 1. Laser atherectomy LAD. 2. PTCA, LAD. 3. Left heart catheterization. 4. Selective coronary angiography. 5. Left ventriculogram. INDICATION: Angina and coronary artery disease. PROCEDURE IN DETAIL: After informed consent was obtained and after a detailed explanation of the risks, benefits as well as alternative therapies, the patient elected to proceed with angiogram and angioplasty. The right femoral area was prepped and draped in normal sterile fashion. Right femoral artery was cannulated via modified Seldinger technique with placement of 6-Djiboutian sheath. All catheters exchanged through this sheath. FINDINGS: Left ventriculogram was performed in standard 30-degree POLO view, reveals good cardiac wall motion throughout all segments. Overall ejection fraction estimated 60%. SELECTIVE CORONARY ANGIOGRAPHY: 1. Left main is with no significant angiographic disease. 2. Left anterior descending has previously placed stents. There is up to 90% in-stent restenosis. 3. Left circumflex has moderate irregularities, but no flow-limiting stenosis. 4. The right coronary artery has previously placed stents, these are widely patent with no significant restenosis. No disease elsewise throughout the RCA or its branches. PTCA STENT OF THE LAD: Laser atherectomy was performed with a 0.9 laser catheter, multiple passes were made at 40/40 and 60/40. Ballooning was undertaken with a 3.0 balloon to 15 atmospheres. Result was 0% residual stenosis. OVERALL IMPRESSION: Successful percutaneous transluminal coronary angioplasty laser atherectomy of the left anterior descending going from 90% initial stenosis to 0% residual. TRANSINT:[id number] Voice Confirmation ID: [id number] DOCUMENT ID: [id number] ADDIS MUSA MD at 1800 CC: [id number] DICTATION DATE: 01/06/18 1207 SPOON MAKER: 01/06/18 1214 [address] [place] [id number] [place] [id number]
--- NOTE | ~2018-01-06 | HEMODYNAMI ---
PATIENT:SOWMYA PARSON APRIL MEDICAL RECORD: [id number] : 32 LOCATION:[facility] ADMISSION DATE: 01/06/18 Generatedon:01/06/201812:14 Patient name: SOWMYA PARSON Patient #: [id number] SSN : [id number] : 1930 Date of study: 01/06/2018 Page: Of Hemodynamic Procedure Report Patient Data Patient Demographics Procedure consent was obtained First Name: SOWMYA Gender: Female Last Name: BLANK : 1930 Middle Initial: APRIL Age: 87 year(s) Patient #: [id number] Race: Unknown SSN: [id number] Additional ID: [id number] Contact details [address]: [address] [place] [address] State: [place] City: [place] Zip code: [address] Past Medical History Allergies Allergen Reaction Date Comments Reported Other allergy 05/12/2017 Amlodipine, lisinopril, losartan, PCN Other allergy 01/06/2018 PCN, LISINOPRIL, AMLODIPINE, LOSARTAN Admission Admission Data Admission Date: 01/06/2018 Admission Time: 9:47 Lab Results Lab Result Date: 01/06/2018 Lab Result Time: 0:00 Biochemistry Name Units Result Min Max BUN mg/dl 11 --(-*--)-- 7 18 Creatinine mg/dl 0.8 --(-*--)-- 0.6 1.3 CBC Name Units Result Min Max Hemoglobin g/dl 11.3 *-(----)-- 13.5 17.5 Procedure Procedure Types Cath Procedure Diagnostic Procedure LHC LHC w/Coronaries PCI Procedure Coronary Atherectomy Atherectomy w/PTCA Coronary Initial Miscellaneous Procedures Moderate Sedation up to 30 minutes Peripheral Cath Diagnostic Procedure 4-Vessel 4 Vessel Carotid Arterio Arch Procedure Description Procedure Date Procedure Date: 01/06/2018 Procedure Start Time: 11:38 Procedure End Time: 12:12 Procedure Staff Name Function Estuardo Plaaz MD Performing Physician Shirley Higuera RT Monitor Anirudh Hamilton RT Scrub Yung Moreno RN Nurse Procedure Data Cath Procedure Fluoroscopy Diagnostic fluoroscopy Total fluoroscopy Time: 0 time: 0 min min Diagnostic fluoroscopy Total fluoroscopy dose: 496 dose: 496 mGy mGy Contrast Material Contrast Material Type Amount (ml) Isovue 300 122 Entry Location Entry Primary Successful Side Size Upsize Upsize Entry Closure Succes sful Closure Location (Fr) 1 (Fr) 2 (Fr) Remarks Device Remarks Femoral Right 5 Fr 6 Fr Exoseal artery Short Estimated blood loss: 10 ml Diagnostic catheters Device Type Used For End Catheter Placement MULTIPACK Pigtail 5 Fr Procedure catheter MULTIPACK JL 4.0 5Fr Procedure catheter MULTIPACK 3DRC 5Fr Procedure catheter Procedure Complications No complications Procedure Medications Medication Administration Route Dosage 0.9% NaCl I.V. 100 ml/hr Oxygen NC 2 l/min Heparin Flush Bag added to field 2 bags (1000units/500ml NS) Lidocaine 2% added to field 20 Versed I.V. 2 mg Fentanyl I.V. 100 mcg Heparin Bolus I.V. 4000 units Integrilin (Bolus I.V. 4.5 ml 2mg/ml) Integrilin (Bolus wasted 5.5 ml 2mg/ml) Plavix P.O. 600 mg Hemodynamics Rest HGB: 11.3 (g/dl) Heart Rate: 60 (bpm) Snapshots Pre Cath Intra NCS Post Cath Vital Signs Time Heart Resp SPO2 etCO2 NIBP (mmHg) Rhythm Pain Sedation Rate (ipm) (%) (mmHg) Status Level (bpm) 11:23:47 58 19 98 30.1 190/77(162) NSR 0 (11) 10(A) , No pain 11:28:34 56 15 94 0 152/63(113) NSR 0 (11) 10(A) , No pain 11:33:16 55 19 96 46.6 136/55(103) NSR 0 (11) 10(A) , No pain 11:37:59 59 16 92 0 136/50(98) NSR 0 (11) 9(A) , No pain 11:42:42 58 15 91 33.8 121/52(90) NSR 0 (11) 9(A) , No pain 11:47:20 60 17 93 36.8 121/51(92) NSR 0 (11) 9(A) , No pain 11:52:42 58 19 94 0 117/46(87) NSR 0 (11) 9(A) , No pain 11:57:20 60 18 97 15 106/54(88) NSR 0 (11) 10(A) , No pain 12:01:57 61 14 99 12.7 116/48(84) NSR 0 (11) 10(A) , No pain 12:06:33 63 27 99 26.3 130/56(80) NSR 0 (11) 10(A) , No pain 12:11:14 61 7 99 37.6 142/59(98) NSR 0 (11) 10(A) , No pain Medications Time Medication Route Dose Verified Delivered Reason Notes Effectiveness by by 11:25:30 0.9% NaCl I.V. 100 Yung Yung Per physician ml/hr Josh Morneo RN, RN 11:25:40 Oxygen NC 2 Yung Yung Per physician l/min Josh Moreno RN RN 11:25:52 Heparin Flush added 2 Yung Yung used for Bag to bags Josh Moreno procedure (1000units/500ml field MARTINEZ RN NS) 11:26:04 Lidocaine 2% added 20ml Yung Yung for local to vial Josh Moreno anesthetic field MARTINEZ RN 11:34:49 Versed I.V. 2 mg Yung Yung for sedation Josh Moreno RN RN 11:34:58 Fentanyl I.V. 100 Yung Yung for sedation mcg Josh Moreno RN RN 11:47:42 Heparin Bolus I.V. 4000 Yung Yung for units Josh Moreno anticoagulation RN RN 11:49:19 Integrilin I.V. 4.5 Yung Yung for (Bolus 2mg/ml) ml Josh Moreno antiplatelet RN RN therapy 11:49:45 Integrilin wasted 5.5 Yung Yung to sharp's (Bolus 2mg/ml) ml Jsoh Moreno RN RN 12:05:34 Plavix P.O. 600 Yung Yung for mg Josh oMreno antiplatelet RN RN therapy Procedure Log Time Note 11:10:27 Yung Moreno RN sent for patient. Start room use. 11:10:28 Time tracking: Regular hours 11:10:32 Plan of Care:Hemodynamics will remain stable., Cardiac rhythm will remain stable., Comfort level will be maintained., Respiratory function will remain adequate., Patient/ family verbilizes understanding of procedure., Procedure tolerated without complication., Recovers from procedure without complications.. 11:10:35 Signed procedure consent form obtained from patient. 11:11:02 H&P Date Dictated: 01/03/2018 Within 30 days and on chart., H&P Addendum completed by physician on day of procedure. (MUST COMPLETE FOR ALL OUTPATIENTS). 11:12:57 Lab Result : BUN 11 mg/dl 11:12:57 Lab Result : Hemoglobin 11.3 g/dl 11:12:57 Lab Result : Creatinine 0.8 mg/dl 11:13:05 Patient received from Pre/Post Procedure Room to CCL 1 Alert and oriented. Tansferred to table in Supine position. 11:13:06 Warm blankets applied, and apollo hugger turned on for patient comfort. 11:13:06 Correct patient and procedure confirmed by team. 11:13:07 ECG and BP/O2 sat monitors applied to patient. 11:22:04 Vital chart was started 11:22:13 Baseline sample Acquired. 11:22:26 Rhythm: sinus bradycardia 11:22:38 Full Disclosure recording started 11:22:40 Pre-procedure instructions explained to patient. 11:22:40 Pre-op teaching completed and patient verbalized understanding. 11:22:42 Family in patients room. 11:22:44 Patient NPO since Midnight. 11:23:21 Patient allergic to Other allergyPCN, LISINOPRIL, AMLODIPINE, LOSARTAN 11:23:23 Is the patient allergic to Iodine/contrast media? No. 11:23:24 Is patient on blood thinner?No 11:23:26 Patient diabetic? No. 11:23:32 Patient not . Patient is over age 55. 11:23:34 Previous problem with sedation/anesthesia? No ? 11:23:42 Snore? Yes 11:23:43 Sleep apnea? No 11:23:44 Deviated septum? No 11:23:44 Opens mouth fully? Yes 11:23:45 Sticks out tongue? Yes 11:23:47 Airway obstruction? No ? 11:23:52 Dentures? Yes IN TIGHT 11:23:54 Pre procedure: right dorsailis pedis pulse 2+ Normal; easily identifiable; not easily obliterated 11:23:57 Patient pain scale 0/10 ?. 11:24:03 IV patent on arrival in left hand with 0.9% NaCl at [facility]. 11:24:07 Lab results completed and on chart. 11:24:12 Right groin area was prepped with chlora-prep and draped in sterile fashion 11:24:13 Alarms reviewed by R. N. 11:24:13 Sharps counted by scrub and verified by R.N. 11:25:30 0.9% NaCl 100 ml/hr I.V. was administered by Yung Moreno RN; Per physician; 11:25:40 Oxygen 2 l/min NC was administered by Yung Moreno RN; Per physician; 11:25:52 Heparin Flush Bag (1000units/500ml NS) 2 bags added to field was administered by Yung Moreno RN; used for procedure; 11:26:04 Lidocaine 2% 20ml vial added to field was administered by Yung Moreno RN; for local anesthetic; 11:26:13 Use device set Femoral Dx 11:26:14 ACIST Syringe (48165) opened to sterile field. 11:26:15 Bag Decanter (2002S) opened to sterile field. 11:26:17 ACIST Hand Control (56145) opened to sterile field. 11:26:18 ACIST Manifold (09284) opened to sterile field. 11:26:19 Tegaderm 4 x 4 (1626W) opened to sterile field. 11:26:21 Medline Cath Pack ([id number]) opened to sterile field. 11:26:22 SHEATH 5FR [place] (JMV633) opened to sterile field. 11:26:23 DIAGNOSTIC WIRE .035 260cm J wire (800433) opened to sterile field. 11:26:24 DIAGNOSTIC Multipack 5Fr catheter set (FM5624) opened to sterile field. 11:26:25 PERCUTANEOUS ENTRY 19GA needle opened to sterile field. 11:29:52 Procedure type changed to Cath procedure, Diagnostic procedure, LHC, LHC w/Coronaries, PCI procedure, Coronary Atherectomy, Atherectomy w/PTCA Coronary Initial, Miscellaneous Procedures, Moderate Sedation up to 30 minutes, Peripheral Cath Diagnostic Procedure, 4-Vessel, 4 Vessel Carotid Arterio Arch 11:31:49 Zero performed for pressure channel P1 11:34:35 --------ALL STOP TIME OUT------ 11:34:35 Final Timeout: patient, procedure, and site verified with staff and physician. All members of the team are in agreement. 11:34:39 Right groin site verified by team. 11:34:42 Physical assessment completed. ASA score P 2 - A patient with mild systemic disease as per Estuardo Plaza MD. 11:34:45 Sedation plan: IV Moderate Sedation Medication:Versed, Fentanyl 11:34:49 Versed 2 mg I.V. was administered by Yung Moreno RN; for sedation; 11:34:58 Fentanyl 100 mcg I.V. was administered by Yung Moreno RN; for sedation; 11:38:11 Procedure started. 11:38:28 Local anesthetic to right femoral artery with Lidocaine 2% by Estuardo Plaza MD.INITIAL ACCESS ONLY 11:39:37 A 5 Fr sheath was inserted into the Right Femoral artery 11:40:11 A MULTIPACK Pigtail 5 Fr catheter was advanced over the wire and used for Procedure. 11:40:18 Injector settings: Ml/sec: 10, Volume: 20, 11:40:20 LV gram done using POLO 11:41:27 EF : 60 % 11:41:29 Catheter removed. 11:41:41 A MULTIPACK JL 4.0 5Fr catheter was advanced over the wire and used for Procedure. 11:42:18 LCA angiography performed. 11:42:49 Catheter removed. 11:43:22 A MULTIPACK 3DRC 5Fr catheter was advanced over the wire and used for Procedure. 11:43:35 Merit INFLATION SYRINGE opened to sterile field. 11:44:14 RCA angiography performed. 11:44:56 Left carotid angiography performed. 11:45:44 Right carotid angiography performed. 11:45:50 Catheter removed. 11:47:17 CHOICE PT Extra Support 182cm wire ([id number]) opened to sterile field. 11:47:28 SHEATH 6FR [place] (ZDQ060) opened to sterile field. 11:47:41 Sheath upsized to a 6 Fr Short. 11:47:42 Heparin Bolus 4000 units I.V. was administered by Yung Moreno RN; for anticoagulation; 11:49:19 Integrilin (Bolus 2mg/ml) 4.5 ml I.V. was administered by Yung Moreno RN; for antiplatelet therapy; 11:49:45 Integrilin (Bolus 2mg/ml) 5.5 ml wasted was administered by Yung Moreno RN; to sharp's; 11:55:07 GUIDE 6FR XBLAD 3.5 catheter ([id number]) opened to sterile field. 11:55:09 6 Fr XBLAD 3.5 guide catheter was inserted over the wire 11:55:19 CHOICE PT wire advanced. 11:56:03 Wire advanced across lesion. 11:56:44 A LASER ELCA 0.9 Rx atherectomy catheter (073329) was prepped and advanced across the Mid LAD lesion. Pass Number: 1 11:57:18 Laser pass to mLAD with Fluence of 40 and Rate of 40. 11:59:34 Laser pass to mLAD with Fluence of 60 and Rate of 40. 12:00:21 Laser catheter removed. 12:02:42 Inflation number: 1 A EUPHORA 3.0 x 15 Balloon ([id number]) was prepped and advanced across the Mid LAD, then inflated to 15 KWAKU for 0:10 (min:sec). 12:03:05 Balloon removed over the wire. 12:03:06 Wire removed. 12:03:11 Guide catheter removed. 12:04:19 EXOSEAL 6Fr (EX600) opened to sterile field. 12:04:42 Laser total pulses delivered: 1996 12:04:50 Laser total treatment time: 0 minutes 49 seconds 12:05:04 Sheath removed intact; hemostasis achieved with Exoseal to the Right Femoral artery. 12:05:07 Procedure ended.(Physican Out) 12:05:10 Fluoroscopy time 00.00 minutes. 12:05:14 Fluoroscopy dose: 496 mGy 12:05:14 Flurop Dose total: 496 12:05:19 Contrast amount:Isovue 300 122ml. 12:05:21 Sharps counted by scrub and verified by R.N. 12:05:23 Insertion/operative site no bleeding no hematoma. 12:05:25 Post-op/insertion site Right Femoral artery dressed using a 4 x 4 and Tegaderm. 12:05:29 Post right femoral artery:stable, soft, clean and dry 12:05:34 Plavix 600 mg P.O. was administered by Yung Lorigan RN; for antiplatelet therapy; 12:06:11 Post procedure: right dorsailis pedis pulse 2+ Normal; easily identifiable; not easily obliterated. 12:06:14 Post-procedure physical assessment completed. ASA score P 2 - A patient with mild systemic disease as per Estuardo Plaza MD. 12:06:18 Post procedure rhythm: unchanged. 12:06:20 Estimated blood loss: 10 ml 12:06:22 Post procedure instruction explained to patient.Patient verbalizes understanding. 12:06:25 Patient needs reinforcement of post procedure teaching. 12:12:01 Procedure and supply charges have been captured, reviewed, submitted and are correct. 12:12:04 Procedure Complication : No complications 12:12:09 Vital chart was stopped 12:12:10 See physician's report for complete and final results. 12:12:13 Report given to Pre/Post Procedure Room. 12:12:16 Patient transfered to Pre/Post Procedure Room with Bed. 12:12:21 Procedure ended. 12:12:21 Full Disclosure recording stopped 12:12:25 End room use (Document Last) Intervention Summary Intervention Notes Time ActionType Lesion and Equipment Action# Pressure Duration Attributes Used 11:56:44 Atherectomy Mid LAD LASER ELCA 00:00 0.9 Rx atherectomy catheter ([id number]) 12:02:42 Inflate Mid LAD EUPHORA 3.0 1 15 00:10 balloon x 15 Balloon ([id number]) Device Usage Item Name Manufacture Quantity Catalog Number Hospital Part Current Mini mal Lot# / Charge Number Stock Stock Serial# Code ACIST Acist 1 99063 656666 048470 667294 20 Syringe Medical (80925) Systems Inc Bag Decanter Microtek 1 2001S 744042 49044 803826 5 (2001S) Medical Inc. ACIST Hand Acist 1 93120 963079 649707 606539 5 Control Medical (50554) Systems Inc ACIST Acist 1 27524 852075 525823 870423 5 Manifold Medical (96843) Systems Inc Tegaderm 4 x 3M 1 1626W 999278 166561 128396 5 4 (1626W) Medline Cath Cardinal 1 [id number] 910838 00688 563293 5 [facility] Health ([id number]) SHEATH 5FR Terumo 1 IFZ734 531714 925383 607707 40 [place] (ZXS736) DIAGNOSTIC St Aj 1 537460 455034 227080 377356 30 WIRE .035 260cm J wire (946396) DIAGNOSTIC Cardinal 1 RF6508 362263 31881 699888 30 Multipack Health 5Fr catheter set (FO2144) PERCUTANEOUS Cook Medical 1 T12762 018144 697034 5 ENTRY 19GA needle MULTIPACK Cardinal 1 894017 5 Pigtail 5 Fr Health catheter MULTIPACK JL Cardinal 1 894443 5 4.0 5Fr Health catheter MULTIPACK Cardinal 1 081365 5 3DRC 5Fr Health catheter Merit Medtronic 1 A08A 688223 09008 364664 5 INFLATION SYRINGE CHOICE PT [place] 1 [id number] 793064 615609 350866 5 Extra Scientific Support 182cm wire ([id number]) SHEATH 6FR Terumo 1 YIL109 896681 554250 563471 40 [place] (BLI244) LASER ELCA Stephan 1 110-004 452796 718793 072805 5 0.9 Rx Healthcare atherectomy (465043) catheter (738127) EUPHORA 3.0 Medtronic 1 [id number] 754575 320321 513597 5 [id number] x 15 Balloon (BYR5950P) GUIDE 6FR Cardinal 1 02262091 480632 131327 547986 10 XBLAD 3.5 Health catheter (62084924) EXOSEAL 6Fr Cardinal 1 EX600 145939 602648 943445 10 (EX600) Health Signature Audit [place] Stage Time Signature Unsigned Intra-Procedure 01/06/2018 Shirley Higuera 12:13:58 PM RT(R) Signatures Monitor : Shirley Higuera Signature : RT Date : Time : [facility] [address], [place] [address]
--- NOTE | ~2018-01-06 | OP ---
PATIENT NAME: SOWMYA PARSON APRIL MEDICAL RECORD: [id number] :32 LOCATION:D.[facility] ADMISSION DATE: SURGEON: ADDIS MUSA MD DATE OF OPERATION: 01/06/2018 PROCEDURE: Four-vessel vertebral and carotid angiography. INDICATION: TIA symptomatology. PROCEDURE IN DETAIL: After informed consent was obtained and after detailed explanation of risks, benefits as well as alternative therapies, the patient elected to proceed with angiogram. The right femoral area had a preexisting sheath from a cardiac intervention, all catheters exchanged through this sheath. FINDINGS: There was a subselection of each subclavian as well as the left carotid. RIGHT SIDE: The common internal and external carotids have mild plaquing, none greater than 10% to 20%, no flow-limiting stenosis. Vertebral arteries devoid of disease. LEFT SYSTEM: The common internal and external carotids have mild plaquing, none greater than 20%, no flow-limiting stenosis. Vertebral arteries devoid of disease. OVERALL IMPRESSION: Minimal carotid vascular disease is present. No flow-limiting stenosis. Symptomatology is not due to carotid vascular insufficiency. TRANSINT:[id number] Voice Confirmation ID: [id number] DOCUMENT ID: [id number] ADDIS MUSA MD at 1800 CC: [id number] DICTATION DATE: 01/06/18 1235 PATHOLOGICAL TECHNICIAN: 01/06/18 1247 [facility] [address] [place] [address]
[~2018-01-06 09:47] MED LIST changes: +ACETAMINOPHEN500 M1 PO; +ARICEPT5 MG PO; +LEVOXYL100 MCG PO; +LEXAPRO10 MG; +METOPROLOL TAR100 M1 PO; +PERPHENAZINE2 MG PO; +VITAMIN B-122500 MCG PO
[2018-01-06 10:32] VITALS: BP 137/44; Ht 149.9 cm; Wt 50.0 kg
[2018-01-06 10:49] LABS: BASOPHILS 0.2 % (0-2); HEMATOCRIT 36.3 % (36.0-48.0); HEMOGLOBIN 11.3 g/dL (12-16); IMMATURE GRANULOCYTES 0.1 % (0-5); LYMPHOCYTES 27.5 % (15-50); MCHC 31.1 g/dL (31.0-37.0); MCV 86.6 fL (80.0-100.0); MONOCYTES 12.8 % (2-11); NEUTROPHILS 57.4 % (40-80); PLATELET COUNT 242 10x3/uL (130-400); RBC 4.19 10x6/uL (4.00-5.40); RDW 14.8 % (11.5-14.5); WBC 8.9 10x3/uL (4.8-10.8)
[2018-01-06 10:59] LABS: ANION GAP 11.3 mmol/L (8-16); CARBON DIOXIDE 29.7 mmol/L (21.0-32.0); CREATININE - SERUM 0.8 mg/dL (0.6-1.3)
== END | disposition home or self-care (01) ==
LOC: D.CATH 09:47
PROVIDERS: Internal Medicine Interventional Cardiology
DX: I25.119 Atherosclerotic heart disease of native coronary artery with unspecified angina pectoris (principal); R06.02 Shortness of breath; I10 Essential (primary) hypertension; Z01.812 Encounter for preprocedural laboratory examination

== ENCOUNTER → 2018-07-13 19:17 | Outpatient (CLI) | payer MEDICARE, MEDICAID ==
[2018-01-06 10:32] VITALS: BMI 22.2
[2018-07-13 19:45] LABS: ANION GAP 11.4 mmol/L (8-16); CALCIUM 9.1 mg/dL (8.5-10.1); CARBON DIOXIDE 30.9 mmol/L (21.0-32.0); CREATININE - SERUM 0.8 mg/dL (0.6-1.3); DIGOXIN 1.24 ng/mL (0.90-2.00); POTASSIUM - SERUM 4.3 mmol/L (3.5-5.1)
== END | disposition home or self-care (01) ==
LOC: D.LABREF 19:17
PROVIDERS: Internal Medicine Interventional Cardiology
DX: T46.0X5A Adverse effect of cardiac-stimulant glycosides and drugs of similar action, initial encounter (principal)

== ENCOUNTER → 2019-03-21 13:50 | Outpatient (CLI) | payer MEDICARE, MEDICAID ==
[2018-01-06 10:32] VITALS: BMI 22.2
--- NOTE | 2019-03-28 10:39 | EC ---
PATIENT:SOWMYA PARSON APRIL DATE OF SERVICE: 03/21/19 SEX: F MEDICAL RECORD: [id number] DATE OF : [birth year] [facility] AGE OF PATIENT: 89 ADMISSION DATE: 03/21/19 REFERRING PHYSICIAN: INTERPRETING PHYSICIAN: ADDIS PLAZA MD ECHOCARDIOGRAM REPORT ECHO CHARGES 4 ECHO COMPLETE Date: 03/21/19 CLINICAL DIAGNOSIS: CAD/HTN RECENT DYSPNEA ON EXERTION ECHOCARDIOGRAPHIC MEASUREMENTS (adult normal given) AC root (d.<3.7cm) 2.5 cm LV Septum d (<1.2 cm> 1.2 cm Valve Excursion 1.2 cm LV Septum (systole) 1.3 cm Left Atria (s.<4.0cm> 3.5 cm LVPW d(<1.2cm) 1.2 cm RV (d.<2.3cm) 3.6 cm LVPW (sytole) 1.3 cm LV diastole(<5.6CM) 4.0 cm MV E-F(>70mm/sec) cm LV systole 2.7 cm LVOT Diameter 1.7 cm MV exc.(>10mm) 0.9 cm Est.ejection fraction (50-75%) % DOPPLER: LVIT cm/sec A 142 cm/sec E 108 cm/sec LA 77 cm/sec RVSP 26 mmHg LVOT cm/sec AOP1/2T m/s Asc. Ao 115 cm/sec RVOT cm/sec RA cm/sec PA cm/sec AV Gradient Peak 5.29 mmHg AV Mean 2.40 mmHg AV Area 1.3 cm MV Gradient Peak 8.28 mmHg MV Mean 3.93 mmHg MV Area cm COMMENTS: Entry Level Marketing Representative: Levy JONES Flotation Operator: 1 Dr. Plaza TAPE# PACS Pericardial Effusion N DATE OF SERVICE: PROCEDURE: Echocardiogram. FINDINGS: 1. Left ventricular chamber size is within normal limits. Left ventricular systolic function is normal. Overall ejection fraction estimated at 55%. 2. Left atrium, right atrium, and right ventricular chamber sizes are within normal limits. 3. Valvular structures have normal structure and motion. ECHOCARDIOGRAM REPORT [id number] SOWMYA PARSON MAY 01. Doppler interrogation reveals mild mitral regurgitation, mild tricuspid regurgitation, no other valvular insufficiency or stenosis. Pulmonary systolic pressure is estimated at 26 mmHg. 5. No evidence of pericardial effusion or left ventricular thrombus. TRANSINT:[id number] Voice Confirmation ID: [id number] DOCUMENT ID: [id number] ADDIS PLAZA MD at 1039 CC: [id number] DICTATION DATE: 03/22/19 1211 RENTAL MANAGER: 03/22/19 1727 DEP CLI 03/21/19 [place] [id number] [place] [id number]
== END | disposition home or self-care (01) ==
LOC: D.HCCARDIO 13:50
PROVIDERS: ATTEND Internal Medicine Interventional Cardiology
DX: I25.10 Atherosclerotic heart disease of native coronary artery without angina pectoris (principal)

== ENCOUNTER → 2019-07-17 09:23 | Outpatient (CLI) | payer MEDICARE, MEDICAID ==
[2018-01-06 10:32] VITALS: BMI 22.2
[~2019-07-17 09:23] MED LIST changes: +COREG25 MG PO; +FERROUS SULFAT325 MG PO; +IPRAT-ALBUT 0.5-3 ML UPD; +MERIBIN5 MG PO; +MUCINEX600 MG PO; +MULTI-DAY VITAM1 TAB PO; +VALIUM5 MG PO
--- NOTE | 2019-07-24 11:09 | ST ---
PATIENT:SOWMYA PARSON APRIL MEDICAL RECORD: [id number] SEX: F LOCATION:[facility] ORDER #: ADMISSION DATE: 07/17/19 AGE OF PATIENT: 89 REFERRING PHYSICIAN: INTERPRETING PHYSICIAN: ADDIS MUSA MD DATE OF SERVICE: 07/17/2019 PROCEDURE: Nuclear stress test. INDICATIONS: Angina and coronary artery disease, shortness of breath, hypertension. PROCEDURE IN DETAIL: She was exercised on standard Lexiscan protocol with 32 mCi of sestamibi injected at peak stress, 11 mCi used previously for rest images. FINDINGS: Gated SPECT reveals preserved ejection fraction at 68% with good wall motioning and thickening and brightening throughout all segments. SPECT Imaging: Cardiolite was used as myocardial perfusion agent. There are reversible changes inferiorly as well as apically. This includes the basal, mid, apical inferior segments as well as the apex itself. The degree of reversibility is moderate. The amount of myocardium involved is moderate to large. OVERALL IMPRESSION: This is an intermediate to high risk nuclear stress test with a [id number] amount of myocardium involved and reversibility inferiorly as well as apically. Gated SPECT reveals preserved ejection fraction at 68% in this patient with ongoing symptomatology, the current scan does suggest the presence of hemodynamically significant coronary artery disease. TRANSINT:[id number] Voice Confirmation ID: [id number] DOCUMENT ID: [id number] ADDIS MUSA MD at 1109 CC: RADHA MC MD [id number] DICTATION DATE: 07/17/19 1630 PHARMACY TECH CUSTOMER SERVICE: 07/17/19 1055 DEP CLI 07/17/19 [facility] [address] [place] [address]
== END | disposition home or self-care (01) ==
LOC: D.HCCARDIO 09:23
PROVIDERS: ATTEND Internal Medicine Interventional Cardiology
DX: I25.10 Atherosclerotic heart disease of native coronary artery without angina pectoris (principal)

== ENCOUNTER 2019-07-27 09:08 | Outpatient (CLI) | payer MEDICARE, MEDICAID ==
[~2019-07-27] VITALS: Ht 147.3 cm; Wt 45.9 kg
--- NOTE | ~2019-07-27 | HEMODYNAMI ---
PATIENT:SOWMYA PARSON MEDICAL RECORD: [id number] : 32 LOCATION:[facility] ADMISSION DATE: 07/27/19 Generatedon:07/27/201911:49 Patient name: SOWMYA PARSON Patient #: [id number] SSN : [id number] : 1930 Date of study: 07/27/2019 Page: Of Hemodynamic Procedure Report Patient Data Patient Demographics Procedure consent was obtained First Name: SOWMYA Gender: Female Last Name: BLANK : 1930 Middle Initial: W Age: 89 year(s) Patient #: [id number] Race: SSN: [id number] Additional ID: [id number] Contact details Address: [address] [place] [address] [address] State: [place] City: [place] Zip code: [address] Past Medical History Allergies Allergen Reaction Date Comments Reported Other allergy 05/12/2017 Amlodipine, lisinopril, losartan, PCN Other allergy 01/06/2018 PCN, LISINOPRIL, AMLODIPINE, LOSARTAN Admission Admission Data Admission Date: 07/27/2019 Admission Time: 9:08 Arrival Date: 07/27/2019 Arrival Time: 11:00 Admit Source: Other Insurance Payor: Medicare, Medicaid Height (in.): 57.87 BSA: 1.36 (m2) Height (cm.): 147 BMI: 21.29 (kg/m2) Weight (lbs.): 101.41 Weight (kg.): 46 Lab Results Lab Result Date: 07/27/2019 Lab Result Time: 0:00 Biochemistry Name Units Result Min Max BUN mg/dl 10 --(-*--)-- 7 18 Creatinine mg/dl 0.7 --(*---)-- 0.6 1.3 CBC Name Units Result Min Max Hemoglobin g/dl 12.8 -*(----)-- 13.5 17.5 Procedure Procedure Types Cath Procedure Diagnostic Procedure LHC LHC w/Coronaries FFR/IVUS Intra-Coronary IVUS Initial Sedation Charges Moderate Sedation up to 30 minutes PCI Procedure PTCA PTCA Initial Coronary Atherectomy Atherectomy w/Stent Coronary Initial Procedure Description Procedure Date Procedure Date: 07/27/2019 Procedure Start Time: 11:10 Procedure End Time: 11:43 Procedure Staff Name Function Alvin Diaz RT Scrub Val Medeiros RT Monitor Estuardo Plaza MD Performing Physician Roxanne Vega RN Nurse Christel Hernandez RT Scrub Procedure Data Cath Procedure Fluoroscopy Diagnostic fluoroscopy Total fluoroscopy Time: 251 time: 251 min min Diagnostic fluoroscopy Total fluoroscopy dose: 251 dose: 251 mGy mGy Contrast Material Contrast Material Type Amount (ml) Isovue 300 115 Entry Location Entry Primary Successful Side Size Upsize Upsize Entry Closure Succes sful Closure Location (Fr) 1 (Fr) 2 (Fr) Remarks Device Remarks Femoral Right 5 Fr 6 Fr Exoseal artery Short Estimated blood loss: 5 ml Diagnostic catheters Device Type Used For End Catheter Placement MULTIPACK Pigtail 5 Fr Multi-vessel catheter Angiography MULTIPACK JL 4.0 5Fr Left Coronary catheter Angiography MULTIPACK 3DRC 5Fr Right Coronary catheter Angiography Procedure Complications No complications Procedure Medications Medication Administration Route Dosage 0.9% NaCl I.V. 100 ml/hr Oxygen etCO2 Nasal cannula 2 l/min Lidocaine 2% added to field 20 Heparin Flush Bag added to field 2 bags (1000units/500ml NS) Versed I.V. 1 mg Fentanyl I.V. 25 mcg Versed I.V. 1 mg Fentanyl I.V. 25 mcg Versed I.V. 1 mg Fentanyl I.V. 25 mcg Heparin Bolus I.V. 4000 units Integrilin (Bolus I.V. 4 ml 2mg/ml) Integrilin (Bolus wasted 6 ml 2mg/ml) Plavix P.O. 600 mg Versed I.V. 1 mg Fentanyl I.V. 25 mcg Nitroglycerin IC/IA I.C. 200 mcg Hemodynamics Rest BSA: 1.36 (m2) HGB: 12.8 (g/dl) O2 Consumption: Estimated: 116.8 (ml/min) O2 Con sumption indexed: Estimated:85.88 (ml/min/m) Heart Rate: 64 (bpm) Pressure Samples Time Site Value (mmHg) Purpose Heart Use Rate(bpm) 11:13 LV 158/28,32 Snapshot 76 Snapshots Pre Cath Intra NCS Post Cath Vital Signs Time Heart Resp SPO2 etCO2 NIBP (mmHg) Rhythm Pain Sedation Rate (ipm) (%) (mmHg) Status Level (bpm) 10:57:40 64 15 100 31 168/76(120) NSR 0 (11) 10(A) , No pain 11:01:58 60 19 100 15.7 175/72(133) NSR 0 (11) 10(A) , No pain 11:06:22 63 16 98 32.3 162/65(126) NSR 0 (11) 10(A) , No pain 11:10:38 69 17 98 30.8 151/71(114) NSR 0 (11) 10(A) , No pain 11:14:54 76 15 96 26.3 145/62(107) NSR 0 (11) 10(A) , No pain 11:19:08 80 14 98 30.8 138/62(101) NSR 0 (11) 10(A) , No pain 11:23:20 62 17 97 32 123/58(93) NSR 0 (11) 10(A) , No pain 11:27:30 81 20 97 42.1 118/53(86) NSR 0 (11) 10(A) , No pain 11:31:39 86 13 95 42.1 96/49(69) NSR 0 (11) 9(A) , No pain 11:35:39 71 17 97 39.8 112/55(84) NSR 0 (11) 10(A) , No pain 11:39:45 88 20 97 36.1 97/51(68) NSR 0 (11) 10(A) , No pain Medications Time Medication Route Dose Verified Delivered Reason Notes Effectiveness by by 11:02:56 0.9% NaCl I.V. 100 Estuardo Roxanne used for ml/hr Bola Vega telemarketing fundraiser 11:03:02 Oxygen etCO2 2 Estuardo Roxanne used for Nasal l/min Bola Vega procedure cannula RN 11:03:10 Lidocaine 2% added 20ml Estuardo Marte for local to vial Bola Plaza MD anesthetic field 11:03:14 Heparin Flush added 2 Estuardo Estuardo used for Bag to bags Bola Plaza MD procedure (1000units/500ml field NS) 11:04:27 Versed I.V. 1 mg Estuardo Roxanne for sedation Bola Vega RN 11:04:32 Fentanyl I.V. 25 Estuardo Roxanne for sedation mcg Bola Vega RN 11:09:50 Versed I.V. 1 mg Estuardo Roxanne for sedation Bola Vega RN 11:09:59 Fentanyl I.V. 25 Estuardo Roxanne for sedation mcg Bola Vega RN 11:15:16 Versed I.V. 1 mg Estuardo Roxanne for sedation Bola Vega RN 11:15:37 Fentanyl I.V. 25 Estuardo Roxanne for sedation mcg Bola Vega RN 11:24:33 Heparin Bolus I.V. 4000 Estuardo Roxanne for verif ied units Bola Vega anticoagulation with Dr. JUAN Plaaz 11:24:50 Integrilin I.V. 4 ml Estuardo Roxanne for (Bolus 2mg/ml) Bola Vega antiplatelet RN therapy 11:25:03 Integrilin wasted 6 ml Estuardo Roxanne for (Bolus 2mg/ml) Bola Vega antiplatelet RN therapy 11:25:35 Plavix P.O. 600 Estuardo Roxanne for mg Bola Vega antiplatelet RN therapy 11:26:31 Versed I.V. 1 mg Estuardo Roxanne for sedation Bola Vega RN 11:26:35 Fentanyl I.V. 25 Estuardo Roxanne for sedation mcg Bola Vega RN 11:37:05 Nitroglycerin I.C. 200 Estuardo Pricerey for IC/IA mcg Bola Plaza MD vasodilation Procedure Log Time Note 10:45:25 Roxanne Vega RN sent for patient. Start room use. 10:45:53 Informed consent obtained and on chart 10:45:56 Admit Source: Other 10:46:06 Arrival Date: 07/27/2019 11:00:00 AM 10:46:16 Insurance Payor : Medicare, Medicaid 10:47:49 Patient Height : 57.87 inches 10:47:52 Patient Weight : 101.41 lbs 10:48:10 Lab Result : Hemoglobin 12.8 g/dl 10:48:10 Lab Result : Creatinine 0.7 mg/dl 10:48:10 Lab Result : BUN 10 mg/dl 10:55:32 Time tracking: Regular hours (M-F 7:00 - 5:00) 10:55:37 Plan of Care:Hemodynamics will remain stable., Cardiac rhythm will remain stable., Comfort level will be maintained., Respiratory function will remain adequate., Patient/ family verbilizes understanding of procedure., Procedure tolerated without complication., Recovers from procedure without complications.. 10:56:12 ACC Patient presents with Stable Angina CCS Anginal Class 2--Slight limitation of ordinary activity. 10:56:27 Correct patient and procedure confirmed by team. 10:56:27 Warm blankets applied, and apollo hugger turned on for patient comfort. 10:56:28 ECG and BP/O2 sat monitors applied to patient. 10:56:30 Vital chart was started 10:56:39 Rhythm: sinus rhythm 10:56:41 Full Disclosure recording started 10:56:44 H&P Date Dictated: 07/27/2019 Within 30 days and on chart., H&P Addendum completed by physician on day of procedure. (MUST COMPLETE FOR ALL OUTPATIENTS). 10:56:46 Pre-procedure instructions explained to patient. 10:56:47 Pre-op teaching completed and patient verbalized understanding. 10:56:48 Family in waiting room. 10:56:49 Patient NPO since Midnight. 10:56:51 Is the patient allergic to Iodine/contrast media? No. 10:56:52 Was the patient premedicated? No 10:57:32 ACCPatient has been prescribed/administered the following anti-anginal medication within the last 2 weeks: Beta Carla 10:59:49 Patient diabetic? No. 10:59:52 Previous problem with sedation/anesthesia? No ? 11:02:06 Snore? No 11:02:07 Sleep apnea? No 11:02:08 Deviated septum? No 11:02:09 Opens mouth fully? Yes 11:02:10 Sticks out tongue? Yes 11:02:56 0.9% NaCl 100 ml/hr I.V. was administered by Roxanne Vega RN; used for procedure; 11:03:02 Oxygen 2 l/min etCO2 Nasal cannula was administered by Roxanne Vega RN; used for procedure; 11:03:10 Lidocaine 2% 20ml vial added to field was administered by Estuardo Plaza MD; for local anesthetic; 11:03:13 Airway obstruction? No ? 11:03:14 Heparin Flush Bag (1000units/500ml NS) 2 bags added to field was administered by Estuardo Plaza MD; used for procedure; 11:03:15 Dentures? No ? 11:03:19 Pre procedure: right dorsailis pedis pulse 2+ Normal; easily identifiable; not easily obliterated 11:03:21 Pre procedure: left dorsailis pedis pulse 2+ Normal; easily identifiable; not easily obliterated 11:03:24 Patient pain scale 0/10 ?. 11:03:30 IV patent on arrival in left forearm with 0.9% NaCl at [facility]. 11:03:33 Lab results completed and on chart. 11:03:37 Right groin area was prepped with chlora-prep and draped in sterile fashion 11:03:38 Alarms reviewed by R. N. 11:03:39 Sharps counted by scrub and verified by R.N. 11:03:40 Physician arrived 11:03:41 Final Timeout: patient, procedure, and site verified with staff and physician. All members of the team are in agreement. 11:03:41 --------ALL STOP TIME OUT------ 11:03:43 Right groin site verified by team. 11:03:47 Fire Safety Assessment: A--An alcohol-based skin anteseptic being used preoperatively., C--Open oxygen or nitrous oxide is being used., D--An ESU, laser, or fiber-optic light is being used. 11:03:50 Physical assessment completed. ASA score P 2 - A patient with mild systemic disease as per Estuardo Plaza MD. 11:03:59 2) 60-89 Mildly reduced kidney function, and other findings (as for stage 1) point to kidney disease. 11:04:21 Maximum allowable contrast dose (3.7 X eGFR X 0.75)230 ml. 11:04:27 Versed 1 mg I.V. was administered by Roxanne Vega RN; for sedation; 11:04:29 Sedation plan: IV Moderate Sedation Medication:Versed, Fentanyl 11:04:32 Fentanyl 25 mcg I.V. was administered by Roxanne Vega RN; for sedation; ::33 Use device set Femoral Dx 11:04:34 Bag Decanter (2002S) opened to sterile field. 11:04:34 ACIST Syringe (66227) opened to sterile field. 11:04:35 Medline Cath Pack ([id number]) opened to sterile field. 11:04:36 ACIST Manifold (91614) opened to sterile field. 11:04:36 ACIST Hand Control (51558) opened to sterile field. 11:04:37 DIAGNOSTIC Multipack 5Fr catheter set (GN3373) opened to sterile field. 11:04:38 Tegaderm 4 x 4 (1626W) opened to sterile field. 11:04:39 EMERALD Guide Wire (546-628) opened to sterile field. 11:04:40 SHEATH 5FR [place] (UNP560) opened to sterile field. 11:08:27 Procedure started. 11:09:50 Versed 1 mg I.V. was administered by Roxanne Vega RN; for sedation; 11:09:59 Fentanyl 25 mcg I.V. was administered by Roxanne Vega RN; for sedation; 11:10:10 Local anesthetic to right femoral artery with Lidocaine 2% by Estuardo Plaza MD.INITIAL ACCESS ONLY 11:11:13 A 5 Fr sheath was inserted into the Right Femoral artery 11:12:21 A MULTIPACK Pigtail 5 Fr catheter was advanced over the wire and used for Multi-vessel Angiography. 11:12:54 Baseline sample Acquired. 11:13:36 LV hemodynamics recorded. 11:13:39 LV gram done using POLO 11:13:44 Injector settings: Ml/sec: 5, Volume: 15, 11:13:49 EF : 50 % 11:13:55 Catheter removed. 11:14:00 A MULTIPACK JL 4.0 5Fr catheter was advanced over the wire and used for Left Coronary Angiography. 11:14:40 LCA angiography performed. 11:14:43 Injector settings: Ml/sec: 3, Volume: 6, 11:14:52 Catheter removed. 11:14:58 A MULTIPACK 3DRC 5Fr catheter was advanced over the wire and used for Right Coronary Angiography. 11:15:16 Versed 1 mg I.V. was administered by Roxanne Vega RN; for sedation; 11:15:31 RCA angiography performed. 11:15:34 Injector settings: Ml/sec: 3, Volume: 6, 11:15:37 Fentanyl 25 mcg I.V. was administered by Roxanne Vega RN; for sedation; 11:15:59 Catheter removed. 11:16:03 ACCDominant side:Co-Dominant 11:17:04 Proceeding to intervention. 11:17:54 CHOICE PT Extra Support 182cm wire ([id number]) opened to sterile field. 11:17:54 GUIDE 6FR 3DRC catheter ([id number]) opened to sterile field. 11:17:55 INFLATOR Merit BasixCompak (ME5196) opened to sterile field. 11:17:56 SHEATH 6FR [place] (CPP765) opened to sterile field. 11:18:16 Greenbelt Heidelberg Eagleye IVUS Catheter (17043O) opened to sterile field. 11:18:17 GUIDE 6FR XBLAD 3.5 catheter ([id number]) opened to sterile field. 11:18:32 Sheath upsized to a 6 Fr Short. 11:18:56 6 Fr 3drc guide catheter was inserted over the wire 11:19:05 ACC Pre-intervention WILFRED Flow is 3. 11:19:11 choice pt wire advanced. 11:19:14 IVUS catheter advanced over wire. 11:22:06 IVUS measurement 81.5 %. 11:22:12 IVUS pass to RCA lesion performed. 11:22:16 IVUS catheter removed over wire. 11:23:24 LASER ELCA 0.9 Rx atherectomy catheter (758899) opened to sterile field. 11:23:50 Inflate balloon Inflation number: 1 A NC EUPHORA 3.0 x 20 balloon ([id number]) was prepped and advanced across the Mid RCA , then inflated to 17 KWAKU for 0:10 (min:sec) . 11:24:05 Inflation number: 1 The NC EUPHORA 3.0 x 20 balloon ([id number]) was reinflated across the Prox RCA , to 21 KWAKU for 0:10 (min:sec) . 11:24:12 Inflation number: 2 The NC EUPHORA 3.0 x 20 balloon ([id number]) was reinflated across the Prox RCA , to 17 KWAUK for 0:10 (min:sec) . 11:24:33 Heparin Bolus 4000 units I.V. was administered by Roxanne Vega RN; for anticoagulation; verified with Dr. Plaza 11:24:50 Integrilin (Bolus 2mg/ml) 4 ml I.V. was administered by Roxanne Vega RN; for antiplatelet therapy; 11:25:03 Integrilin (Bolus 2mg/ml) 6 ml wasted was administered by Roxanne Vega RN; for antiplatelet therapy; 11:25:07 Inflation number: 3 The NC EUPHORA 3.0 x 20 balloon ([id number]) was reinflated across the Prox RCA , to 21 KWAKU for 0:10 (min:sec) . 11:25:35 Balloon removed over the wire. 11:25:35 Plavix 600 mg P.O. was administered by Roxanne Vega RN; for antiplatelet therapy; 11:25:36 Guide catheter removed. 11:25:36 Wire removed. 11:26:31 Versed 1 mg I.V. was administered by Roxanne Vega RN; for sedation; 11::35 Fentanyl 25 mcg I.V. was administered by Roxanne Vega RN; for sedation; 11:26:49 Pre PCI Site: [place] pRCA has 81.5% stenosis. 11:26:58 ACC Post-intervention WILFRED Flow is 3. 11:26:59 Post PCI Site: [place] pRCA has 0% stenosis. 11:27:58 6 Fr xblad 3.5 guide catheter was inserted over the wire 11:28:00 ACC Pre-intervention WILFRED Flow is 3. 11:28:00 Pre PCI Site: [place] pLAD has 95% stenosis. 11:28:05 choice pt wire advanced. 11:28:47 Laser pass to pLAD with Fluence of 80 and Rate of 40. 11:32:59 Laser catheter removed. 11:35:25 Place stent Inflation Number: 1 A WILDA RX 2.75 x 26 stent ([id number]) was prepped and advanced across the Prox LAD 95. The stent was deployed at 15 KWAKU for 0:10 (min:sec) . 11:36:52 Stent catheter was removed intact over wire. 11:37:05 Nitroglycerin IC/IA 200 mcg I.C. was administered by Estuardo Plaza MD; for vasodilation; 11:37:51 Guide catheter removed. 11:37:51 Wire removed. 11:37:57 EXOSEAL 6Fr (EX600) opened to sterile field. 11:38:23 Sheath removed intact; hemostasis achieved with Exoseal to the Right Femoral artery. 11:38:24 Post PCI Site: [place] pLAD has 0% stenosis. 11:38:26 Procedure ended.(Physican Out) 11:39:50 Fluoroscopy time 251.00 minutes. 11:40:01 Fluoroscopy dose: 251 mGy 11:40:01 Flurop Dose total: 251 11:40:09 Dose Area Product 1537 mGy/cm. 11:40:40 Laser total pulses delivered: 3600 11:40:52 Laser total treatment time: 1.5 minutes 0 seconds 11:41:09 Contrast amount:Isovue 300 115ml. 11:41:10 Sharps counted by scrub and verified by R.N. 11:41:12 Insertion/operative site no bleeding no hematoma. 11:41:14 Post-op/insertion site Right Femoral artery dressed using a 4 x 4 and Tegaderm. 11:41:17 Post procedure rhythm: unchanged. 11:41:20 Estimated blood loss: 5 ml 11:41:21 Post procedure instruction explained to patient.Patient verbalizes understanding. 11:41:22 Patient needs reinforcement of post procedure teaching. 11:42:51 Procedure type changed to Cath procedure, Diagnostic procedure, LHC, LHC w/Coronaries, FFR/IVUS, Intra-Coronary IVUS Initial, Sedation Charges, Moderate Sedation up to 30 minutes, PCI procedure, PTCA, PTCA Initial, Coronary Atherectomy, Atherectomy w/Stent Coronary Initial 11:42:52 Procedure and supply charges have been captured, reviewed, submitted and are correct. 11:42:56 Procedure Complication : No complications 11:42:59 See physician's report for complete and final results. 11:42:59 Vital chart was stopped 11:43:01 Report given to Pre/Post Procedure Room. 11:43:05 Patient transfered to Pre/Post Procedure Room with Stretcher. 11:43:07 Full Disclosure recording stopped 11:43:07 Procedure ended. 11:43:18 ACC-PCI Only Patient was given prescriptions, or instructed by Estuardo Plaza MD to start/continue the following medications upon discharge: Plavix 11:43:19 End room use (Document Last) 11:49:23 ACT drawn and resulted at 343 seconds. (normal therapeutic range 180-240 seconds). Intervention Summary Intervention Notes Time ActionType Lesion and Equipment Used Action# Pressure Duration Attributes 11:23:50 Inflate Mid RCA NC EUPHORA 3.0 1 17 00:10 balloon x 20 balloon ([id number]) 11:24:05 Reinflate Prox RCA NC EUPHORA 3.0 1 21 00:10 balloon x 20 balloon ([id number]) 11:24:12 Reinflate Prox RCA NC EUPHORA 3.0 2 17 00:10 balloon x 20 balloon ([id number]) 11:25:07 Reinflate Prox RCA NC EUPHORA 3.0 3 21 00:10 balloon x 20 balloon ([id number]) 11:35:25 Place stent Prox LAD WILDA RX 2.75 x 1 15 00:10 26 stent ([id number]) Device Usage Item Name Manufacture Quantity Catalog Number Hospital Part Current M inimal Lot# / Charge Number Stock Stock Serial# Code ACIST Syringe Acist 1 28903 [id number] 703417 622151 2 0 (38633) Medical Systems Inc Bag Decanter Microtek 1 2001S 906224 15621 016205 5 (2001S) Medical Inc. Medline Cath Medline 1 [id number] 718142 88495 061507 5 Pack ([id number]) ACIST Hand Acist 1 31738 871016 208180 370349 5 Control Medical (79612) Systems Inc ACIST Manifold Acist 1 69558 653944 876222 758966 5 (63064) Medical Systems Inc DIAGNOSTIC Cardinal 1 UI8142 643828 95219 326525 3 0 Multipack 5Fr Health catheter set (EI2111) Tegaderm 4 x 4 3M 1 1626W 015238 137353 677783 5 (1626W) EMERALD Guide Cardinal 1 502-455 245080 871951 282158 5 Wire (502-455) Health SHEATH 5FR Terumo 1 HHE753 945886 310623 986509 5 [place] (GGN916) MULTIPACK Cardinal 1 966183 5 Pigtail 5 Fr Health catheter MULTIPACK JL Cardinal 1 223933 5 4.0 5Fr Health catheter MULTIPACK 3DRC Cardinal 1 751474 5 5Fr catheter Health GUIDE 6FR 3DRC Medtronic 1 [id number] 113190 407204 747962 1 catheter (VR28JMQ) CHOICE PT [place] 1 [id number] 392443 005442 238712 5 Extra Support Scientific 182cm wire ([id number]) INFLATOR Merit Merit 1 JL6463 831303 199793 739411 1 5 ArborMetrix Medical (XF3079) SHEATH 6FR Terumo 1 RWY277 126889 689490 236805 4 0 [place] (BMB806) Greenbelt Greenbelt 1 94942M 595622 355901 322839 8 Heidelberg Eagleye IVUS Catheter (15414X) GUIDE 6FR Cardinal 1 [id number] 166257 442695 780819 1 0 XBLAD 3.5 Health catheter (57115808) LASER ELCA 0.9 Stephan 1 110-004 363325 828475 858222 5 Rx atherectomy Healthcare catheter (082979) (069651) NC EUPHORA 3.0 Medtronic 1 [id number] 488403 067932 286831 0 [id number] x 20 balloon ([id number]) WILDA RX 2.75 x Medtronic 1 [id number] 134209 4648181 342467 5 [id number] 26 stent ([id number]) EXOSEAL 6Fr Cardinal 1 EX600 302120 730143 853994 1 0 (EX600) Health Signature Audit [place] Stage Time Signature Unsigned Intra-Procedure 07/27/2019 Val Diaz RT(R) 11:46:34 AM RT(R) 07/27/2019 11:49:16 AM Intra-Procedure 07/27/2019 Alvin Diaz 11:49:40 AM RT(R) Signatures Monitor : Val Medeiros RT Signature : Date : Time : Performing Physician : Signature : Estuardo Plaza MD Date : Time : Nurse : Roxanne Vega RN Signature : Date : Time : [place] [address] [facility] [address]
[~2019-07-27 09:08] MED LIST changes: -COREG25 MG PO; -FERROUS SULFAT325 MG PO; -IPRAT-ALBUT 0.5-3 ML UPD; -MERIBIN5 MG PO; -MUCINEX600 MG PO; -MULTI-DAY VITAM1 TAB PO; -VALIUM5 MG PO
[2019-07-27] MEDS ORDERED: MERIBIN5 MG PO (09:22)
[2019-07-27] MEDS ORDERED: COREG25 MG PO (09:23)
[2019-07-27] MEDS ORDERED: VITAMIN D31000 UNIT PO (09:24)
[2019-07-27] MEDS ORDERED: VALIUM5 MG PO (09:26)
[2019-07-27] MEDS ORDERED: FERROUS SULFAT325 MG PO (09:26)
[2019-07-27] MEDS ORDERED: IPRAT-ALBUT 0.5-3 ML UPD (09:27)
[2019-07-27] MEDS ORDERED: MUCINEX600 MG PO (09:28)
[2019-07-27] MEDS ORDERED: MULTI-DAY VITAM1 TAB PO (09:29)
[2019-07-27] MEDS ORDERED: OMEPRAZOLE20 M1 PO (09:29)
[2019-07-27] MEDS ORDERED: ZOCOR40 MG PO (09:30)
[2019-07-27] MEDS ORDERED: ULTRAM50 MG PO (09:30)
[2019-07-27 09:52] VITALS: BP 140/50; Ht 147.3 cm; Wt 45.9 kg
[2019-07-27 10:03] LABS: BASOPHILS 0.2 % (0-2); EOSINOPHILS 2.5 % (0-7); HEMATOCRIT 38.9 % (36.0-48.0); HEMOGLOBIN 12.8 g/dL (12-16); IMMATURE GRANULOCYTES 0.1 % (0-5); LYMPHOCYTES 20.4 % (15-50); MCH 30.1 pg (26.0-34.0); MCHC 32.9 g/dL (31.0-37.0); MCV 91.5 fL (80.0-100.0); MEAN PLATELET VOLUME 11.1 fL (7.4-10.4); MONOCYTES 10.3 % (2-11); NEUTROPHILS 66.5 % (40-80); RBC 4.25 10x6/uL (4.00-5.40); RDW 13.6 % (11.5-14.5); WBC 8.8 10x3/uL (4.8-10.8)
[2019-07-27 10:16] LABS: PLATELET COUNT 156 10x3/uL (130-400)
[2019-07-27 10:23] LABS: ALT (SGPT) 20 U/L (10-68); CALC OSMOLALITY 282 mosm/kg (275-300); CALCIUM 9.6 mg/dL (8.5-10.1); CARBON DIOXIDE 30.3 mmol/L (21.0-32.0); CHLORIDE - SERUM 103 mmol/L (98-107); CHOLESTEROL, TOTAL 161 mg/dL (0-200); CREATININE - SERUM 0.7 mg/dL (0.6-1.3); GLUCOSE 108 mg/dL (74-106); HDL CHOLESTEROL 54 mg/dL (32-96); LDL CHOLESTEROL 62 mg/dL (0-100); LDL-HDL RATIO 1.1 ratio (1.5-3.5); SODIUM 142 mmol/L (136-145); TRIGLYCERIDE 228 mg/dL (30-200); UREA NITROGEN 10 mg/dL (7-18); eGFR NON AFRICAN AMERICAN 83 mL/min (90-120)
--- NOTE | 2019-07-27 11:56 | NUR ---
PT ARRIVED BY STRETCHER. PLACED ON MONITOR. ASSESSMENT COMPLETED. VSS. FAMILY AT BEDSIDE. CALL LIGHT WITHIN REACH. PT IN SUPINE POSITION.
[2019-07-27] MEDS ORDERED: PLAVIX75 MG PO (12:01)
--- NOTE | 2019-07-27 12:10 | NUR ---
PT RESTING COMFORTABLY. VSS. RIGHT GROIN DRESSING C/D/I. NO S/S OF HEMATOMA NOTED. CALL LIGHT WITHIN REACH.
--- NOTE | 2019-07-27 12:40 | NUR ---
RIGHT GROIN DRESSING C/D/I. NO S/S OF HEMATOMA NOTED. BILATERAL PEDAL PULSES PALPABLE. VSS. CALL LIGHT WITHIN REACH. PT RESTING COMFORTABLY AT THIS TIME.
--- NOTE | 2019-07-27 13:15 | NUR ---
PT C/O HIP PAIN. CHRONIC ACHING. WILL GIVE TYLENOL. VSS. RIGHT GROIN DRESSING C/D/I. NO S/S OF HEMATOMA NOTED. PT TOLERATING SIPS OF WATER. DENIES NAUSEA. REPOSITIONED FOR COMFORT.
--- NOTE | 2019-07-27 13:45 | NUR ---
PT REPORTS HIP PAIN IS MUCH BETTER. RATES IT A 01/07. VSS. RIGHT GROIN DRESSING C/D/I. NO S/S OF HEMATOMA NOTED. CALL LIGHT WITHIN REACH. VSS. NO NEEDS AT THIS TIME.
--- NOTE | 2019-07-27 14:30 | NUR ---
PT RESTING COMFORTABLY. RIGHT GROIN DRESSING C/D/I. NO S/S OF HEMATOMA NOTED.
--- NOTE | 2019-07-27 14:35 | NUR ---
RX FOR PLAVIX CALLED IN TO [facility]. SPOKE WITH NIKI.
--- NOTE | 2019-07-27 14:45 | NUR ---
RIGHT GROIN DRESSING C/D/I. NO S/S OF HEMATOMA NOTED. VSS. HEAD OF BED IN TO 30 DEGREES. TOLERATED WELL. SET UP WITH SANDWICH TRAY AND DRINK.
--- NOTE | 2019-07-27 15:15 | NUR ---
RIGHT GROIN DRESSING C/D/I. NO S/S OF HEMATOMA NOTED. LEFT WRIST PIV D/C'D WITH CATH TIP INTACT. TOLERATED WELL. PT UP WITH ASSIST. HELPED HER GET DRESSED. WHEELCHAIR TO RESTROOM AND VOIDED WITHOUT DIFFICULTY.
--- NOTE | 2019-07-27 15:40 | NUR ---
DISCUSSED DISCHARGE INSTRUCTIONS WITH PT. SHE VOICED UNDERSTANDING. CALLED FOR HER RIDE TO COME AND PICK HER UP FROM [facility].
--- NOTE | 2019-07-27 15:45 | NUR ---
PT TAKEN OUT TO VEHICLE BY WHEELCHAIR. NO S/S OF DISTRESS NOTED. ALL BELONGINGS WITH HER INCLUDING DENTURES, GLASSES, WALKER, PURSE, AND DISCHARGE INSTRUCTIONS. CONFERENCE PRODUCER STATES HE WILL TAKE PT BY PHARMACY TO TRANSIT POLICE OFFICER HER PRESCRIPTION.
--- NOTE | 2019-08-08 14:31 | OP ---
PATIENT NAME: SOWMYA PARSON MEDICAL RECORD: [id number] :31 LOCATION:D.CAT ADMISSION DATE: SURGEON: ADDIS MUSA MD DATE OF OPERATION: 07/27/2019 PROCEDURES: 1. PTCA stent LAD. 2. Laser atherectomy LAD. 3. PTCA RCA. 4. Intravascular ultrasound RCA. 5. Left heart catheterization. 6. Selective coronary angiography. 7. Left ventriculogram. INDICATION: Angina, coronary artery disease, abnormal nuclear stress test, reversible ischemia anteroapically as well as inferiorly. PROCEDURE IN DETAIL: After informed consent was obtained and after a detailed description of risks, benefits as well as alternative therapies, the patient elected to proceed with angiogram and angioplasty. The right femoral area was prepped and draped in normal sterile fashion. Right femoral artery was cannulated via modified Seldinger technique with placement of 6-Serbian sheath. All catheters exchanged through this sheath. FINDINGS: The left ventriculogram was performed in standard 30-degree POLO view reveals preserved cardiac wall motion, ejection fraction 50%. SELECTIVE CORONARY ANGIOGRAPHY: 1. Left main showed no significant angiographic disease. 2. Left anterior descending has a previously placed stent with 90% to 95% in-stent restenosis. 3. Left circumflex has mild irregularities, but no flow-limiting stenosis. 4. The right coronary artery has previously placed stents. There is a hazy area proximal and mid. Intravascular ultrasound reveals 81% stenosis here. PTCA OF THE RCA: High pressure PTCA was made with a 3.0 balloon taken to 21 atmospheres. Result was 0% residual stenosis. LASER ATHERECTOMY PTCA STENT OF THE LAD: Laser atherectomy was performed with a 0.9 mm laser catheter, multiple passes were made. This was then stented with a 2.75 x 26 mm [place]. Result was 0% residual stenosis. OVERALL IMPRESSION: Successful percutaneous transluminal coronary angioplasty stent of the left anterior descending and high pressure percutaneous transluminal coronary angioplasty of the right coronary artery going from 80% to 95% initial stenosis to 0% residual. TRANSINT:[id number] Voice Confirmation ID: [id number] DOCUMENT ID: [id number] OPERATIVE REPORT [id number] BLANKSOWMYA Izzy ADDIS MUSA MD at 5203 CC: [id number] DICTATION DATE: 07/27/19 1146 SEAFOOD PROCESS WORKER: 07/27/19 1156 DEP CLI 07/27/19 [facility] [address] [place] [address]
== END 2019-07-27 15:45 | disposition home or self-care (01) ==
LOC: D.CATH 09:08
PROVIDERS: ATTEND Internal Medicine Interventional Cardiology
DX: I25.119 Atherosclerotic heart disease of native coronary artery with unspecified angina pectoris (principal); T82.855A Stenosis of coronary artery stent, initial encounter; Z01.812 Encounter for preprocedural laboratory examination
CPT/HCPCS: C9602; 92920; 92978; 93458